=== PATIENT | male | born 1970 | race Caucasian/White ===

== ENCOUNTER 2017-12-19 07:31 | Emergency (ER) | payer OTHER ==
[~2017-12-19] VITALS: Ht 180.3 cm; Wt 76.7 kg
[~2017-12-19 07:31] MED LIST: BACTRIM 400-801 EACH; DESCOVY PO; DIFLUCAN200 MG PO; ETHAMBUTOL HCL400 MG PO; FLAGYL500 MG PO; HYDROCORTISONE10 MG PO; PREDNISONE20 MG PO; PREZCOBIX PO; PROTONIX40 MG PO; TIVICAY PO; ZITHROMAX600 MG PO
[2017-12-19 09:26] VITALS: BP 136/68
== END 2017-12-19 09:30 | disposition home or self-care (01) ==
LOC: FSED 07:31
DX: R60.9 Edema, unspecified (principal); E88.09 Other disorders of plasma-protein metabolism, not elsewhere classified; K21.9 Gastro-esophageal reflux disease without esophagitis; B20 Human immunodeficiency virus [HIV] disease
CPT/HCPCS: 36415; 80053; 81003; 82948; 85025; 99283

== ENCOUNTER 2018-06-21 15:54 | Inpatient (IN) | payer OTHER ==
[~2018-06-21] VITALS: Ht 180.3 cm; Wt 70.3 kg
--- OUTSIDE RECORDS SUMMARY | 2018-06-21 15:58 | XMS REPORT | Clinical Summary ---
Author Author [facility] Organization [facility] Address Unknown Phone Unavailable Care Team Providers Care Revising Clerk Name Role Phone Jenna Crain MD PCP Allergies Comments Active Allergy Reactions Severity Noted Date Developed CYTOPENIAS on this medication which improved with holding BACTRIM Sulfamethoxazole-Trimetho 07/27/2016 prim Medications End Date Status Medication Sig Dispensed Refills Start Date Active traMADol (ULTRAM) 50 mg Take 1 tablet 30 tablet 0 tabletIndications: AIDS by mouth 6 (acquired every 6 hours immunodeficiency as needed for syndrome), CD4 <=200 Pain (mild pain). Active HYDROcodone-acetaminophen Take 1 tablet 30 tablet 0 (NORCO) 7.5-325 mg tablet by mouth 6 every 6 hours as needed for pain. Active omeprazole (PRILOSEC) 20 Take 1 90 capsule 2 mg delayed release capsule by 6 capsuleIndications: mouth daily. Lymphoblastic lymphoma, unspecified body region Active azithromycin (ZITHROMAX) Take 1 tablet 30 tablet 3 500 mg tabletIndications: by mouth 7 Human immunodeficiency daily. 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 Active dolutegravir (TIVICAY) 50 Take 1 tablet 30 tablet 3 mg tabletIndications: by mouth 7 AIDS (acquired daily. immunodeficiency syndrome), CD4 <=200 Active darunavir-cobicistat Take 1 tablet 30 tablet 3 (PREZCOBIX) 800-150 mg-mg by mouth 7 Tab tabletIndications: daily. AIDS (acquired immunodeficiency syndrome), CD4 <=200 Active emtricitabine-tenofovir Take 1 tablet 30 tablet 3 alafen (DESCOVY) 200-25 by mouth 7 mg tabletIndications: daily. AIDS (acquired immunodeficiency syndrome), CD4 <=200 Active hydrOXYzine (ATARAX) 25 Take 1 tablet 30 tablet 11 mg tabletIndications: by mouth 7 Insomnia, unspecified nightly at bedtime as needed for Insomnia. Active nystatin (MYCOSTATIN) Apply to 15 g 0 topical creamIndications: affected area 7 Lymphoblastic lymphoma, 2 times unspecified body region daily. 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 Johns is a 45 yo man with HIV/AIDS who was newly diagnosed with plamablastic lymphoma, his oncologic history is as follows: 12/30/2015: Seen in ID clinic, was complaining of a new pain in the anal/perirectal area for the past 2 weeks. On exam area looked atypical and concerning, referred to dermatology and colorectal surgery for evaluation. 01/06/2016: presented to the ED with worsening anal/perirectal pain, concern for abcess, admitted to general surgery for further management. 01/06/2016: CT A/P noting an enhancing, heterogenous perianal lesion measuring 7.0 x 6.4 cm x 8.6cm, with central areas of hypodensity, which may represent necrosis or abscess formation, also noting mesenteric lymphadenopathy. 01/07/2016: Taken to the OR for rigid proctoscopy, incision and drainage of carl-rectal abscess. 01/08/2016: EUA, washout of wound with packing and excisional biopsy of the perirectal lesion done. Pathology initially read as peripheral T-cell lymphoma NOS, but then after review thought to be more consistent with plasmablastic lymphoma. The superficial atypical cells are positive for MUM1, CD30 (variable), GURWINDER (variable), CD43, CD45 and STEPHANI, while the deeper atypical cells with cohesive growth pattern are positive for CD138 (weak and variable), MUM1 (variable), CD43, and CD45, but are negative for CD30, GURWINDER and STEPHANI. Both components are negative for CD20, CD3, PAX-5, CD79, CD56, HHV-8, CD10, CD31, CD34, TdT, myeloperoxidase, Bcl-2, Bcl-6, ALK-1, and pankeratin. FISH showed gain of BCL6/3q27, MYC/8q24 and BCL2/18q2, but no evidence of a rearrangement of BCL2, BCL6 or MYC. 01/10/2016: EUA, placement of telfa dressings to bilateral open buttock wounds. 01/14/2016: TTE with LVEF 65-69% 01/17/2016: Bone marrow biopsy revealed normocellular marrow with trilineage hematopoesis, negative for lymphoma by IHC and flow. Normal cytogenetics 46XY. 01/21/2016: PET/CT scan noting a markedly FDG avid, large perianal soft tissue mass measuring approximately 7 x 10.4 x 7.9 cm with max SUV of 30.9, also a perineal soft tissue nodularity extending to the base of the scrotum with ill-defined margins with max SUV of 25.3. Other subcutaneous FDG avid nodules are present including a perineal nodule measuring 1.3 cm with max SUV of 21.7, and a right inguinal nodule measuring 1.2 cm with max SUV of 20.3. Numerous mesenteric nodes, but only two with FDG avidity, a periduodenal node 1.2 cm with max SUV of 6.8, and a mesenteric node 1.5 cm with max SUV of 7.1. 01/21/2016: C1 of CHOP (pathology at that time was still read as peripheral T cell lymphoma NOS) 02/09/2016: First [facility] oncology visit, consented for DA-EPOCH, sent to ER for intractable diarrhea w/u. 02/09/2016-02/23/16: Admitted at [facility] for work up of intractable diarrhea, no infection found per patient 03/01/2016: port placed 03/02/2016-03/08/2016: Admitted for C1 of DA-EPOCH, LP done and IT MTX given, CSF cytology negative 03/20/2016-03/25/2016: Admitted with fever, anemia and weakness, treated for sepsis and adrenal insufficiency, was supposed to received C2 of DA-EPOCH inhouse since it was delayed but left AMA. 04/03/2016-04/09/2016: Admitted for C2 DA-EPOCH, LP done and IT MTX given, CSF cytology negative 04/10/2016-04/13/2016: Admitted for diarrhea and hypokalemia, infectious work up unrevealing. 04/15/2016-04/21/2016: Admitted for febrile neutropenia and diarrhea, treated with broad spectrum antibiotics, cultures remained negative, stool studies including c-diff negative, colonoscopy with biopsy showed active colitis but no evidence of CMV inclusions. Fever and neutropenia resolved and patient discharged home. 05/02/2016-05/07/2016: admitted for C3 of DA-EPOCH, LP done and IT MTX given, CSF cytology negative. 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 AIDS (acquired immunodeficiency syndrome), CD4 <=200 02/27/2014 Human immunodeficiency virus (HIV) disease 02/05/2013 Dyslipidemia 02/05/2013 H/O pneumocystis pneumonia 02/05/2013 Adrenal insufficiency Encounter for antineoplastic chemotherapy Encounters Care Team Description Date Type Specialty Abdiaziz Olson, Fellow(MD) Lymphoblastic lymphoma, unspecified body region 05/15/2018 Hospital Lab Encounter Abdiaziz Olson, Fellow(MD) Lymphoblastic lymphoma, unspecified body region (Primary Dx) 05/15/2018 Office Visit Oncology Abdiaziz Olson, Fellow(MD) Lymphoblastic lymphoma, unspecified body region (Primary Dx) 05/15/2018 Orders Only Oncology Jonel Amezcua 05/14/2018 Clinical Case Mgt Seven, Lymesia D Other; Pre-clinic Chart Review 05/13/2018 Telephone Abdiaziz Olson Fellow() Lymphoblastic lymphoma, unspecified body region (Primary Dx) 05/13/2018 Orders Only Oncology Abdiaziz Olson Fellow() Lymphoblastic lymphoma, unspecified body region (Primary Dx) 05/13/2018 Orders Only Oncology Abdiaziz Olson Fellow() Lymphoblastic lymphoma, unspecified body region 05/08/2018 Hospital Radiology Encounter 05/07/2018 Travel [place] Appointment Related Questions 04/29/2018 Telephone Oncology Abdiaziz Olson Fellow() Lymphoblastic lymphoma, unspecified body region (Primary Dx) 12/26/2017 Office Visit Oncology Jenna Crain MD Lymphoblastic lymphoma, unspecified body region 12/21/2017 Hospital Radiology Encounter Lilly Hernandez Follow-up (Minor Procedure ) 11/09/2017 Telephone Colon and Rectal Surgery Lilly Hernandez Follow-up (Minor Procedure ) 11/09/2017 Telephone Colon and Rectal Surgery Dequan Elizalde MD Port catheter in place (Primary Dx) 11/07/2017 Office Visit General Surgery Flaquito Chapman Fellow() Lymphoblastic lymphoma, unspecified body region (Primary Dx) 11/07/2017 Orders Only Hematology Marleny Greco MD Maymani, Hossein, Fellow() Lymphoblastic lymphoma, unspecified body region (Primary Dx) 08/22/2017 Office Visit Oncology Lymphoblastic lymphoma, unspecified body region 08/13/2017 Ancillary Radiology Procedure Lymphoblastic lymphoma, unspecified body region 08/13/2017 Ancillary Radiology Procedure Flaquito Chapman Fellow() 08/10/2017 Hospital Lab Encounter Flaquito Chapman Fellow() Lymphoblastic lymphoma, unspecified body region (Primary Dx) 08/10/2017 Orders Only Oncology after 06/20/2017 Immunizations Name Dates Previously Given Next Due Influenza Vac (Fluarix) 10/02/2015 Influenza Vaccine 06/29/2016, 03/17/2014, 06/12/2013 PPD 10/16/2012 Pneumococcal 13-valent 01/11/2015 conj 0.5 mL injection Family History Medical History Relation Name Comments Hypertension Father Heart Paternal Grandfather Relation Name Status Comments Brother Alive Brother Alive Brother Alive Brother Alive Daughter Alive Father Alive Mother Alive Paternal Grandfather Sister Alive Sister Alive Social History Date Tobacco Use Types Packs/Day Years Used Former Smoker Cigarettes 19 Smokeless Tobacco: Former Quit: 12/17/2013 User Tobacco Cessation: Counseling Given: No Alcohol Use Drinks/Week oz/Week Comments No 5-6 Cans of 3.0 - 3.6 USED TO DRINK 5-6 BEERS WHENERVER HE DRANK, HAS beer CUT DOWN SINCE BEING DIAGNOSED WITH HIV. 0 Standard drinks or equivalent Sex Assigned at Date Recorded Not on file Industry Job Start Date Occupation Not on file Not on file Not on file Travel End Travel History Travel Start No recent travel history available. Last Filed Vital Signs Time Taken Vital Sign Reading 05/15/2018 11:44 AM BENDER MACHINE OPERATOR Blood Pressure 107/70 05/15/2018 11:44 AM BENDER MACHINE OPERATOR Pulse 117 05/15/2018 11:44 AM BENDER MACHINE OPERATOR Temperature 36.8 C (98.2 F) 05/15/2018 11:44 AM BENDER MACHINE OPERATOR Respiratory Rate 18 05/15/2018 11:44 AM BENDER MACHINE OPERATOR Oxygen Saturation 99% - Inhaled Oxygen - Concentration 05/15/2018 11:44 AM BENDER MACHINE OPERATOR Weight 78.2 kg (172 lb 8 oz) 05/15/2018 11:44 AM BENDER MACHINE OPERATOR Height 180.3 cm (5' 11") 05/15/2018 11:44 AM BENDER MACHINE OPERATOR Body Mass Index 24.06 Plan of Treatment Care Team Description Date Type Specialty 06/26/2018 Appointment Radiology 07/03/2018 Appointment Lab Abdiaziz Olson, Fellow() [address] [place] [id number] patient has CD in order picker/assembler folder 07/03/2018 Office Visit Oncology Procedures Comments Procedure Name Priority Date/Time Associated Diagnosis COMPREHENSIVE METABOLIC Routine 05/15/2018 Lymphoblastic lymphoma, 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) 1:15 PM BENDER MACHINE OPERATOR unspecified body region CBC/DIFF Routine 05/15/2018 Lymphoblastic lymphoma, 1:15 PM BENDER MACHINE OPERATOR unspecified body region CT ABDOMEN AND PELVIS W Routine 05/08/2018 Lymphoblastic lymphoma, CONTRAST - ROUTINE 2:40 PM BENDER MACHINE OPERATOR unspecified body region CT CHEST W CONTRAST Routine 05/08/2018 Lymphoblastic lymphoma, 2:40 PM BENDER MACHINE OPERATOR unspecified body region CT SOFT TISSUE NECK W Routine 05/08/2018 Lymphoblastic lymphoma, CONTRAST 2:40 PM BENDER MACHINE OPERATOR unspecified body region COMPREHENSIVE METABOLIC Routine 05/07/2018 Lymphoblastic lymphoma, 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) 2:38 PM BENDER MACHINE OPERATOR unspecified body region CBC/DIFF Routine 05/07/2018 Lymphoblastic lymphoma, 2:38 PM BENDER MACHINE OPERATOR unspecified body region CT CHEST W CONTRAST Routine 12/21/2017 Lymphoblastic lymphoma, 5:44 PM CDT unspecified body region CT ABDOMEN AND PELVIS Routine 12/21/2017 Lymphoblastic lymphoma, CONTRAST 5:44 PM CDT unspecified body region CT SOFT TISSUE NECK W Routine 12/21/2017 Lymphoblastic lymphoma, CONTRAST 5:44 PM CDT unspecified body region COMPREHENSIVE METABOLIC Routine 12/19/2017 Lymphoblastic lymphoma, 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) 10:08 AM CDT unspecified body region CBC/DIFF Routine 12/19/2017 Lymphoblastic lymphoma, 10:08 AM CDT unspecified body region CT SOFT TISSUE NECK W Routine 08/13/2017 Lymphoblastic lymphoma, CONTRAST 12:51 PM CDT unspecified body region CT ABDOMEN AND PELVIS Routine 08/13/2017 Lymphoblastic lymphoma, CONTRAST 12:23 PM CDT unspecified body region CT CHEST W CONTRAST Routine 08/13/2017 Lymphoblastic lymphoma, 12:23 PM CDT unspecified body region CD4/CD8 RATIO GRP Routine 08/10/2017 Lymphoblastic lymphoma, 11:15 AM BENDER MACHINE OPERATOR unspecified body region HIV RNA VIRAL LOAD Routine 08/10/2017 Lymphoblastic lymphoma, 11:15 AM BENDER MACHINE OPERATOR unspecified body region COMPREHENSIVE METABOLIC Routine 08/10/2017 Lymphoblastic lymphoma, 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) 11:15 AM BENDER MACHINE OPERATOR unspecified body region CBC/DIFF Routine 08/10/2017 Lymphoblastic lymphoma, 11:15 AM BENDER MACHINE OPERATOR unspecified body region after 06/20/2017 Results * COMPREHENSIVE METABOLIC 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) (05/15/2018 1:15 PM BENDER MACHINE OPERATOR) Only the most recent of 4 results within the time period is included. Pathologist [facility] Albumin 2.1 (L) 4.2 - 5.5 g/dL [facility] Calcium 7.3 (L) 8.6 - 10.3 mg/dL [facility] CO2 21 21 - 31 mmol/L [facility] Chloride 107 98 - 107 mmol/L [facility] Creatinine 1.30 0.7 - 1.3 mg/dL [facility] Glucose 92 70 - 110 mg/dL [facility] Alk Phos 651 (H) 34 - 104 U/L [facility] Potassium 5.0 3.5 - 5.1 mmol/L [facility] Sodium 136 136 - 145 mmol/L [facility] ALT 30 7 - 52 U/L [facility] AST 21 13 - 39 U/L [facility] Urea Nitrogen 15 7 - 25 mg/dL [facility] T Bilirubin 0.4 0.2 - 1.0 mg/dL [facility] T Protein 4.5 (L) 6.4 - 8.2 g/dL [facility] GFR, Estimated 59 mL/min/1.73 m2 [facility] GFR, Estim, >60 mL/min/1.73 m2 [facility] 1 Anion Gap 8 [facility] Specimen Blood Performing Organization Address City/State/Zipcode Phone Number MISYS [facility] * CBC/DIFF (05/15/2018 1:15 PM BENDER MACHINE OPERATOR) Only the most recent of 4 results within the time period is included. WBC 8.3 4.5 - 12.0 K/uL [facility] RBC 3.43 (L) 4.60 - 6.20 M/uL [facility] Hemoglobin 9.5 (L) 14.0 - 18.0 g/dL [facility] Hematocrit 31.6 (L) 40.0 - 54.0 % [facility] MCV 92 82 - 92 fL [facility] MCH 27.7 27.0 - 31.0 pg [facility] MCHC 30.1 (L) 32.0 - 36.0 g/dL [facility] RDW 62.4 (H) 35.1 - 43.9 fL [facility] Platelet 333 150 - 400 K/uL [facility] Mean Platelet 9.8 9.4 - 12.4 fL [facility] Volume [facility] Percent NRBC 0.0 [facility] Absolute NRBC 0.00 [facility] Neutrophil 58.5 34.0 - 67.9 % [facility] Lymphocyte 25.2 21.8 - 50.0 % [facility] Monocyte 8.3 5.3 - 12.0 % [facility] Eosinophil 2.2 0.8 - 5.0 % [facility] Basophil 1.6 (H) 0.2 - 1.2 % [facility] Pct Immat Gran 4.2 (H) 0.0 - 0.5 [facility] Neutrophil, Abs 4.87 1.78 - 5.36 K/uL [facility] Lymphocyte, Abs 2.09 1.32 - 3.57 K/uL [facility] Monocyte, Abs 0.69 0.30 - 0.82 K/uL [facility] Eosinophil, Abs 0.18 0.04 - 0.54 K/uL [facility] Basophil, Abs 0.13 (H) 0.01 - 0.08 K/uL [facility] Absol Immat 0.35 (H) 0.00 - 0.03 K/uL [facility] Gran [facility] 2 Specimen Blood Performing Organization Address City/State/Zipcode Phone Number [facility] * CT ABDOMEN AND PELVIS W CONTRAST - ROUTINE (05/08/2018 2:40 PM BENDER MACHINE OPERATOR) Impressions Performed At IMPRESSION: SMS 1.Significant interval increase in size of the portacaval, para-aortic, interaortocaval, and large masslike area within the mesentery surrounding the proximal mesenteric arteries resulting in interval mild narrowing. Several lymph nodes have developed central process. 2.There is interval increase in subcentimeter right para esophageal and left anterior diaphragmatic lymph node. 3.Diffuse duodenal, jejunal and proximal ileal wall thickening with normal enhancement, with no dilatation or pneumatosis with no evidence for ischemic change suggesting a nonspecific enteritis. 4.Interval development of mild to moderate abdominal and pelvic ascites. 5.Mild hepatomegaly with diffuse moderate hepatic steatosis that is new since the prior study. There is associated increased portal vein diameter that may suggest development of underlying hepatocellular disease. 6.Mild to moderate abdominal and pelvic ascites that is new since the prior study. 7.Moderate diffuse gallbladder wall thickening that is not significantly changed and may be secondary to chronic liver disease and/or ascites versus chronic cholecystitis. 8.Small fluid filled umbilical hernia. Signed By: Mickey Marina MD, 05/08/2018 3:06 PM Narrative Performed At EXAM: CT CHEST WITH CONTRAST SMS EXAM: CT ABDOMEN AND PELVIS WITH CONTRAST DATE: 05/08/2018 2:40 PM INDICATION: Surveillance. Lymphoblastic lymphoma, unspecified body region ADDITIONAL INFORMATION: None. COMPARISON: CT chest abdomen pelvis 12/21/2017 TECHNIQUE: Chest ,abdomen and pelvis volumetric CT data set was acquired and axial, coronal, and sagittal series were reconstructed. Postcontrast phases: Portal Venous IV contrast: Omnipaque 300, 85 mL Enteric contrast: None. DLP:[id number] FINDINGS: Lines, tubes and hardware: None. Lower neck:The visible portions or the lower neck and thyroid are unremarkable. Axilla: Clear. Airway: Patent. Lungs and pleura:There is a small right pleural effusion with associated atelectasis. There is a left apical subpleural calcified granuloma. There is a left lower lobe medial calcified granuloma in the left lower lobe posterior calcified granuloma. There are a few partial accessory fissures. Mediastinum, tamar and intrathoracic lymph nodes: There is a fatty replaced para esophageal 1.3 cm lymph node that previously measured 1.1 cm. There is a left anterior diaphragmatic 0.7 cm lymph node that previously measured 0.5 cm. Heart, pericardium and great vessels: Unremarkable. Liver: There is moderate diffuse low-attenuation. There is mild enlargement measuring 17.9 cm in length. There is mild perihepatic ascites. The liver is heterogeneously enhancing with no focal lesion seen. Biliary tree: No intra- or extrahepatic biliary ductal dilation. Gallbladder: Contracted with a mildly thickened wall that is stable. Pancreas: Normal. Spleen: 12.2 cm and is at the upper limits of normal. Adrenals: Normal. Kidneys and ureters: Normal. Bladder: Normal. Reproductive Tract: The prostate is unremarkable. Gastrointestinal tract: Stomach: Normal. Small bowel: There is interval development of thickening of the duodenum and small bowel diffusely level of the proximal ileum with normal enhancement, no dilatation or pneumatosis. Colon: Normal. Appendix: Not definitely seen. Peritoneum, mesentery and retroperitoneum: There is mild to moderate abdominal and pelvic ascites. Lymph nodes: There are periportal lymph nodes measuring up to 1.4 cm that previously measured 0.6 cm. There is a 0.9 cm portacaval lymph node that previously measured 0.5 cm. There are numerous para-aortic lymph nodes. There is an interaortocaval 2.5 cm lymph node that previously measured 1.7 cm. There is a conglomerate retrocaval cluster of lymph nodes measuring 2 cm that previously measured 1.3 cm. Several lymph nodes have developed central microcysts since the prior study. There is a 1.8 cm preaortic node that previously measured 1.3 cm and hasn't process on the current study. There is a confluence of michael mass surrounding the proximal branching of the SMA that covers an area of approximately 6.9 x 7.6 cm that previously measured approximately 4.8 x 4.7 cm and is more tightly packed with lymph nodes with areas of lymph node necrosis compared to the prior study. Arteries: There is narrowing of the enteric arteries surrounded by the conglomerate mass of adenopathy that is new since the prior study. The aorta and its branches and iliac vessels are patent and normal in caliber. Veins: The opacified portions of the IVC, mesenteric, and femoral veins are patent. Portal Vein:The portal vein measures 1.6 cm and previous a measured 1.3 cm.. Bones: No acute abnormality. Soft tissues:There is a small fluid containing umbilical hernia of uncertain clinical significance.There are small bilateral fat-containing inguinal hernias. Procedure Note Interface, Rad/Mammog In - 05/08/2018 3:11 PM BENDER MACHINE OPERATOR EXAM: CT CHEST WITH CONTRAST EXAM: CT ABDOMEN AND PELVIS WITH CONTRAST DATE: 05/08/2018 2:40 PM INDICATION: Surveillance. Lymphoblastic lymphoma, unspecified body region ADDITIONAL INFORMATION: None. COMPARISON: CT chest abdomen pelvis 12/21/2017 TECHNIQUE: Chest ,abdomen and pelvis volumetric CT data set was acquired and axial, coronal, and sagittal series were reconstructed. Postcontrast phases: Portal Venous IV contrast: Omnipaque 300, 85 mL Enteric contrast: None. DLP: [id number] FINDINGS: Lines, tubes and hardware: None. Lower neck: The visible portions or the lower neck and thyroid are unremarkable. Axilla: Clear. Airway: Patent. Lungs and pleura: There is a small right pleural effusion with associated atelectasis. There is a left apical subpleural calcified granuloma. There is a left lower lobe medial calcified granuloma in the left lower lobe posterior calcified granuloma. There are a few partial accessory fissures. Mediastinum, tamar and intrathoracic lymph nodes: There is a fatty replaced para esophageal 1.3 cm lymph node that previously measured 1.1 cm. There is a left anterior diaphragmatic 0.7 cm lymph node that previously measured 0.5 cm. Heart, pericardium and great vessels: Unremarkable. Liver: There is moderate diffuse low-attenuation. There is mild enlargement measuring 17.9 cm in length. There is mild perihepatic ascites. The liver is heterogeneously enhancing with no focal lesion seen. Biliary tree: No intra- or extrahepatic biliary ductal dilation. Gallbladder: Contracted with a mildly thickened wall that is stable. Pancreas: Normal. Spleen: 12.2 cm and is at the upper limits of normal. Adrenals: Normal. Kidneys and ureters: Normal. Bladder: Normal. Reproductive Tract: The prostate is unremarkable. Gastrointestinal tract: Stomach: Normal. Small bowel: There is interval development of thickening of the duodenum and small bowel diffusely level of the proximal ileum with normal enhancement, no dilatation or pneumatosis. Colon: Normal. Appendix: Not definitely seen. Peritoneum, mesentery and retroperitoneum: There is mild to moderate abdominal and pelvic ascites. Lymph nodes: There are periportal lymph nodes measuring up to 1.4 cm that previously measured 0.6 cm. There is a 0.9 cm portacaval lymph node that previously measured 0.5 cm. There are numerous para-aortic lymph nodes. There is an interaortocaval 2.5 cm lymph node that previously measured 1.7 cm. There is a conglomerate retrocaval cluster of lymph nodes measuring 2 cm that previously measured 1.3 cm. Several lymph nodes have developed central microcysts since the prior study. There is a 1.8 cm preaortic node that previously measured 1.3 cm and hasn't process on the current study. There is a confluence of michael mass surrounding the proximal branching of the SMA that covers an area of approximately 6.9 x 7.6 cm that previously measured approximately 4.8 x 4.7 cm and is more tightly packed with lymph nodes with areas of lymph node necrosis compared to the prior study. Arteries: There is narrowing of the enteric arteries surrounded by the conglomerate mass of adenopathy that is new since the prior study. The aorta and its branches and iliac vessels are patent and normal in caliber. Veins: The opacified portions of the IVC, mesenteric, and femoral veins are patent. Portal Vein: The portal vein measures 1.6 cm and previous a measured 1.3 cm.. Bones: No acute abnormality. Soft tissues: There is a small fluid containing umbilical hernia of uncertain clinical significance. There are small bilateral fat-containing inguinal hernias. IMPRESSION IMPRESSION: 1. Significant interval increase in size of the portacaval, para-aortic, interaortocaval, and large masslike area within the mesentery surrounding the proximal mesenteric arteries resulting in interval mild narrowing. Several lymph nodes have developed central process. 2. There is interval increase in subcentimeter right para esophageal and left anterior diaphragmatic lymph node. 3. Diffuse duodenal, jejunal and proximal ileal wall thickening with normal enhancement, with no dilatation or pneumatosis with no evidence for ischemic change suggesting a nonspecific enteritis. 4. Interval development of mild to moderate abdominal and pelvic ascites. 5. Mild hepatomegaly with diffuse moderate hepatic steatosis that is new since the prior study. There is associated increased portal vein diameter that may suggest development of underlying hepatocellular disease. 6. Mild to moderate abdominal and pelvic ascites that is new since the prior study. 7. Moderate diffuse gallbladder wall thickening that is not significantly changed and may be secondary to chronic liver disease and/or ascites versus chronic cholecystitis. 8. Small fluid filled umbilical hernia. Signed By: Mickey Marina MD, 05/08/2018 3:06 PM Performing Organization Address City/State/Zipcode Phone Number SMS * CT CHEST W CONTRAST (05/08/2018 2:40 PM BENDER MACHINE OPERATOR) Only the most recent of 3 results within the time period is included. Impressions Performed At IMPRESSION: SMS 1.Significant interval increase in size of the portacaval, para-aortic, interaortocaval, and large masslike area within the mesentery surrounding the proximal mesenteric arteries resulting in interval mild narrowing. Several lymph nodes have developed central process. 2.There is interval increase in subcentimeter right para esophageal and left anterior diaphragmatic lymph node. 3.Diffuse duodenal, jejunal and proximal ileal wall thickening with normal enhancement, with no dilatation or pneumatosis with no evidence for ischemic change suggesting a nonspecific enteritis. 4.Interval development of mild to moderate abdominal and pelvic ascites. 5.Mild hepatomegaly with diffuse moderate hepatic steatosis that is new since the prior study. There is associated increased portal vein diameter that may suggest development of underlying hepatocellular disease. 6.Mild to moderate abdominal and pelvic ascites that is new since the prior study. 7.Moderate diffuse gallbladder wall thickening that is not significantly changed and may be secondary to chronic liver disease and/or ascites versus chronic cholecystitis. 8.Small fluid filled umbilical hernia. Signed By: Mickey Marina MD, 05/08/2018 3:06 PM Narrative Performed At EXAM: CT CHEST WITH CONTRAST SMS EXAM: CT ABDOMEN AND PELVIS WITH CONTRAST DATE: 05/08/2018 2:40 PM INDICATION: Surveillance. Lymphoblastic lymphoma, unspecified body region ADDITIONAL INFORMATION: None. COMPARISON: CT chest abdomen pelvis 12/21/2017 TECHNIQUE: Chest ,abdomen and pelvis volumetric CT data set was acquired and axial, coronal, and sagittal series were reconstructed. Postcontrast phases: Portal Venous IV contrast: Omnipaque 300, 85 mL Enteric contrast: None. DLP:796 FINDINGS: Lines, tubes and hardware: None. Lower neck:The visible portions or the lower neck and thyroid are unremarkable. Axilla: Clear. Airway: Patent. Lungs and pleura:There is a small right pleural effusion with associated atelectasis. There is a left apical subpleural calcified granuloma. There is a left lower lobe medial calcified granuloma in the left lower lobe posterior calcified granuloma. There are a few partial accessory fissures. Mediastinum, tamar and intrathoracic lymph nodes: There is a fatty replaced para esophageal 1.3 cm lymph node that previously measured 1.1 cm. There is a left anterior diaphragmatic 0.7 cm lymph node that previously measured 0.5 cm. Heart, pericardium and great vessels: Unremarkable. Liver: There is moderate diffuse low-attenuation. There is mild enlargement measuring 17.9 cm in length. There is mild perihepatic ascites. The liver is heterogeneously enhancing with no focal lesion seen. Biliary tree: No intra- or extrahepatic biliary ductal dilation. Gallbladder: Contracted with a mildly thickened wall that is stable. Pancreas: Normal. Spleen: 12.2 cm and is at the upper limits of normal. Adrenals: Normal. Kidneys and ureters: Normal. Bladder: Normal. Reproductive Tract: The prostate is unremarkable. Gastrointestinal tract: Stomach: Normal. Small bowel: There is interval development of thickening of the duodenum and small bowel diffusely level of the proximal ileum with normal enhancement, no dilatation or pneumatosis. Colon: Normal. Appendix: Not definitely seen. Peritoneum, mesentery and retroperitoneum: There is mild to moderate abdominal and pelvic ascites. Lymph nodes: There are periportal lymph nodes measuring up to 1.4 cm that previously measured 0.6 cm. There is a 0.9 cm portacaval lymph node that previously measured 0.5 cm. There are numerous para-aortic lymph nodes. There is an interaortocaval 2.5 cm lymph node that previously measured 1.7 cm. There is a conglomerate retrocaval cluster of lymph nodes measuring 2 cm that previously measured 1.3 cm. Several lymph nodes have developed central microcysts since the prior study. There is a 1.8 cm preaortic node that previously measured 1.3 cm and hasn't process on the current study. There is a confluence of michael mass surrounding the proximal branching of the SMA that covers an area of approximately 6.9 x 7.6 cm that previously measured approximately 4.8 x 4.7 cm and is more tightly packed with lymph nodes with areas of lymph node necrosis compared to the prior study. Arteries: There is narrowing of the enteric arteries surrounded by the conglomerate mass of adenopathy that is new since the prior study. The aorta and its branches and iliac vessels are patent and normal in caliber. Veins: The opacified portions of the IVC, mesenteric, and femoral veins are patent. Portal Vein:The portal vein measures 1.6 cm and previous a measured 1.3 cm.. Bones: No acute abnormality. Soft tissues:There is a small fluid containing umbilical hernia of uncertain clinical significance.There are small bilateral fat-containing inguinal hernias. Procedure Note Interface, Rad/Mammog In - 05/08/2018 3:11 PM BENDER MACHINE OPERATOR EXAM: CT CHEST WITH CONTRAST EXAM: CT ABDOMEN AND PELVIS WITH CONTRAST DATE: 05/08/2018 2:40 PM INDICATION: Surveillance. Lymphoblastic lymphoma, unspecified body region ADDITIONAL INFORMATION: None. COMPARISON: CT chest abdomen pelvis 12/21/2017 TECHNIQUE: Chest ,abdomen and pelvis volumetric CT data set was acquired and axial, coronal, and sagittal series were reconstructed. Postcontrast phases: Portal Venous IV contrast: Omnipaque 300, 85 mL Enteric contrast: None. DLP: 796 FINDINGS: Lines, tubes and hardware: None. Lower neck: The visible portions or the lower neck and thyroid are unremarkable. Axilla: Clear. Airway: Patent. Lungs and pleura: There is a small right pleural effusion with associated atelectasis. There is a left apical subpleural calcified granuloma. There is a left lower lobe medial calcified granuloma in the left lower lobe posterior calcified granuloma. There are a few partial accessory fissures. Mediastinum, tamar and intrathoracic lymph nodes: There is a fatty replaced para esophageal 1.3 cm lymph node that previously measured 1.1 cm. There is a left anterior diaphragmatic 0.7 cm lymph node that previously measured 0.5 cm. Heart, pericardium and great vessels: Unremarkable. Liver: There is moderate diffuse low-attenuation. There is mild enlargement measuring 17.9 cm in length. There is mild perihepatic ascites. The liver is heterogeneously enhancing with no focal lesion seen. Biliary tree: No intra- or extrahepatic biliary ductal dilation. Gallbladder: Contracted with a mildly thickened wall that is stable. Pancreas: Normal. Spleen: 12.2 cm and is at the upper limits of normal. Adrenals: Normal. Kidneys and ureters: Normal. Bladder: Normal. Reproductive Tract: The prostate is unremarkable. Gastrointestinal tract: Stomach: Normal. Small bowel: There is interval development of thickening of the duodenum and small bowel diffusely level of the proximal ileum with normal enhancement, no dilatation or pneumatosis. Colon: Normal. Appendix: Not definitely seen. Peritoneum, mesentery and retroperitoneum: There is mild to moderate abdominal and pelvic ascites. Lymph nodes: There are periportal lymph nodes measuring up to 1.4 cm that previously measured 0.6 cm. There is a 0.9 cm portacaval lymph node that previously measured 0.5 cm. There are numerous para-aortic lymph nodes. There is an interaortocaval 2.5 cm lymph node that previously measured 1.7 cm. There is a conglomerate retrocaval cluster of lymph nodes measuring 2 cm that previously measured 1.3 cm. Several lymph nodes have developed central microcysts since the prior study. There is a 1.8 cm preaortic node that previously measured 1.3 cm and hasn't process on the current study. There is a confluence of michael mass surrounding the proximal branching of the SMA that covers an area of approximately 6.9 x 7.6 cm that previously measured approximately 4.8 x 4.7 cm and is more tightly packed with lymph nodes with areas of lymph node necrosis compared to the prior study. Arteries: There is narrowing of the enteric arteries surrounded by the conglomerate mass of adenopathy that is new since the prior study. The aorta and its branches and iliac vessels are patent and normal in caliber. Veins: The opacified portions of the IVC, mesenteric, and femoral veins are patent. Portal Vein: The portal vein measures 1.6 cm and previous a measured 1.3 cm.. Bones: No acute abnormality. Soft tissues: There is a small fluid containing umbilical hernia of uncertain clinical significance. There are small bilateral fat-containing inguinal hernias. IMPRESSION IMPRESSION: 1. Significant interval increase in size of the portacaval, para-aortic, interaortocaval, and large masslike area within the mesentery surrounding the proximal mesenteric arteries resulting in interval mild narrowing. Several lymph nodes have developed central process. 2. There is interval increase in subcentimeter right para esophageal and left anterior diaphragmatic lymph node. 3. Diffuse duodenal, jejunal and proximal ileal wall thickening with normal enhancement, with no dilatation or pneumatosis with no evidence for ischemic change suggesting a nonspecific enteritis. 4. Interval development of mild to moderate abdominal and pelvic ascites. 5. Mild hepatomegaly with diffuse moderate hepatic steatosis that is new since the prior study. There is associated increased portal vein diameter that may suggest development of underlying hepatocellular disease. 6. Mild to moderate abdominal and pelvic ascites that is new since the prior study. 7. Moderate diffuse gallbladder wall thickening that is not significantly changed and may be secondary to chronic liver disease and/or ascites versus chronic cholecystitis. 8. Small fluid filled umbilical hernia. Signed By: Mickey Marina MD, 05/08/2018 3:06 PM Performing Organization Address City/State/Zipcode Phone Number SMS * CT SOFT TISSUE NECK W CONTRAST (05/08/2018 2:40 PM BENDER MACHINE OPERATOR) Only the most recent of 3 results within the time period is included. Impressions Performed At IMPRESSION: SMS No cervical lymphadenopathy. Examination remains stable. This [facility] radiology report is a preliminary resident dictation until finalized by an attending.Changes to this preliminary report may occur in an additional preliminary or finalized version. Dictated By: Jt Francois MD, 05/09/2018 8:28 AM I have reviewed the study and agree with the findings in this report. Signed By: Felciiano Carter MD, 05/09/2018 8:30 AM Narrative Performed At EXAM: CT NECK WITH CONTRAST [facility] DATE: 05/08/2018 2:39 PM INDICATION: Surveillance. Lymphoblastic lymphoma, unspecified body region COMPARISON: CT neck from 12/21/2017 and 08/13/2017 TECHNIQUE: Volumetric CT of the neck is obtained after intravenous contrast. Axial, coronal and sagittal images are provided. IV contrast: 65 mL of Omnipaque 300 DLP: 276 mGy-cm FINDINGS: The nasopharynx, oropharynx and oral cavity are normal. The larynx, hypopharynx and thyroid gland are normal. The salivary glands including the parotid and submandibular glands are normal. Minimal mucosal thickening within the right maxillary sinus antrum. Paranasal sinuses and mastoid air cells are otherwise clear. Imaged portions of the brain and orbits are unremarkable. No pathologically enlarged lymph nodes are identified. A few scattered bilateral subcentimeter level 2 lymph nodes up to 0.5 cm are smaller than on comparison studies and are nonspecific. Osseous structures are normal. Unchanged incidental right posterior cervical soft tissue lipoma. Right pulmonary apical blebs are again seen. Mild biapical pulmonary scarring is present. Procedure Note Interface, Rad/Mammog In - 05/09/2018 8:35 AM BENDER MACHINE OPERATOR EXAM: CT NECK WITH CONTRAST DATE: 05/08/2018 2:39 PM INDICATION: Surveillance. Lymphoblastic lymphoma, unspecified body region COMPARISON: CT neck from 12/21/2017 and 08/13/2017 TECHNIQUE: Volumetric CT of the neck is obtained after intravenous contrast. Axial, coronal and sagittal images are provided. IV contrast: 65 mL of Omnipaque 300 DLP: 276 mGy-cm FINDINGS: The nasopharynx, oropharynx and oral cavity are normal. The larynx, hypopharynx and thyroid gland are normal. The salivary glands including the parotid and submandibular glands are normal. Minimal mucosal thickening within the right maxillary sinus antrum. Paranasal sinuses and mastoid air cells are otherwise clear. Imaged portions of the brain and orbits are unremarkable. No pathologically enlarged lymph nodes are identified. A few scattered bilateral subcentimeter level 2 lymph nodes up to 0.5 cm are smaller than on comparison studies and are nonspecific. Osseous structures are normal. Unchanged incidental right posterior cervical soft tissue lipoma. Right pulmonary apical blebs are again seen. Mild biapical pulmonary scarring is present. IMPRESSION IMPRESSION: No cervical lymphadenopathy. Examination remains stable. This [facility] radiology report is a preliminary resident dictation until finalized by an attending. Changes to this preliminary report may occur in an additional preliminary or finalized version. Dictated By: Jt Francois MD, 05/09/2018 8:28 AM I have reviewed the study and agree with the findings in this report. Signed By: Feliciano Carter MD, 05/09/2018 8:30 AM Performing Organization Address City/State/Zipcode Phone Number SMS * CT ABDOMEN AND PELVIS CONTRAST (12/21/2017 5:44 PM CDT) Only the most recent of 2 results within the time period is included. Impressions Performed At IMPRESSION: SMS 1.Slightly improved exam with decrease in size in a few mesenteric lymph nodes and stable retroperitoneal lymphadenopathy. 2.Stable tiny pulmonary nodules measuring up to 3 mm. 3.Prominence of the common bile duct measuring up to 8 mm has decreased in size from 08/13/2017. 4.Diverticulosis without diverticulitis. This [facility] radiology report is a preliminary resident dictation until finalized by an attending.Changes to this preliminary report may occur in an additional preliminary or finalized version. Dictated By: Brendan Perez MD, 12/24/2017 11:39 AM I have reviewed the study and agree with the findings in this report. Signed By: Mae Babb MD, 12/24/2017 1:33 PM Narrative Performed At EXAM: CT CHEST WITH CONTRAST SMS EXAM: CT ABDOMEN AND PELVIS WITH CONTRAST DATE: 12/21/2017 5:46 PM INDICATION: restaging for non-hodgkin lymphoma. Lymphoblastic lymphoma COMPARISON: CT chest abdomen pelvis 08/03/2017, 05/07/2017 TECHNIQUE: Volumetric CT of the chest, abdomen and pelvis is acquired following intravenous administration of contrast. Axial, coronal and sagittal images are provided. IV contrast: 100 cc Omnipaque Enteric contrast: None. DLP: 1402 mGy-cm FINDINGS: Lines, tubes and hardware: None. Lower neck:The visible portions or the lower neck and thyroid are unremarkable. Axilla: Clear. Airway: Patent. Lungs and pleura: *There is a small 2 mm subpleural nodule in the right lower lobe basolateral segment (3/62). Stable. *A 3 mm nodule is present in the left upper lobe, anterior segment (3/20). This is stable. *Small partial groundglass 2 mm nodule in the left inferior lingula segment (3/77). Essentially stable. No pneumothorax, pleural effusion, or focal consolidation. Mediastinum, tamar and intrathoracic lymph nodes: Normal. Heart, pericardium and great vessels: Unremarkable. Liver: Normal. Biliary tree: The common bile duct is prominent but not overtly dilated. This measures 8 mm. No obvious lesion identified. There is no intrahepatic biliary ductal dilation. Gallbladder: Normal. Pancreas: Normal. Spleen: Normal. Adrenals: Normal. Kidneys and ureters: A few small subcentimeter hypodensities are present bilaterally, too small to adequately characterize, but likely represent simple cyst. No stones or hydronephrosis. Bladder: Normal. Reproductive organs: Prostate and seminal vesicles are unremarkable. Gastrointestinal tract: Stomach: Normal. Small bowel: Normal. Colon: Diverticulosis without diverticulitis. Appendix: Normal. Peritoneum, mesentery and retroperitoneum: No free air, ascites or loculated fluid. Abdominal and pelvic lymph nodes: Again seen is extensive retroperitoneal, SMA, and mesenteric lymphadenopathy. Multiple selective lymph nodes: *Aortocaval lymph node conglomerate measures 1.5 cm () and is essentially stable. *Periaortic lymph node measures 1.0 cm () and is stable. *Multiple mesenteric and SMA lymph nodes again seen at the root of the mesentery and appear to have decreased in size overall. For example a 1.2 cm node () previously measured 1.4 cm. Abdominal and pelvic vasculature: Aorta and branches: Normal. IVC and veins: Normal. Portal vasculature: Normal. Bones: No acute abnormality. Age-related degenerative changes of the spine are noted including grade 1 L5 on S1 retrolisthesis. Soft tissues: Small bilateral fat-containing inguinal hernias are again noted. Procedure Note Interface, Rad/Mammog In - 12/24/2017 1:38 PM CDT EXAM: CT CHEST WITH CONTRAST EXAM: CT ABDOMEN AND PELVIS WITH CONTRAST DATE: 12/21/2017 5:46 PM INDICATION: restaging for non-hodgkin lymphoma. Lymphoblastic lymphoma COMPARISON: CT chest abdomen pelvis 08/03/2017, 05/07/2017 TECHNIQUE: Volumetric CT of the chest, abdomen and pelvis is acquired following intravenous administration of contrast. Axial, coronal and sagittal images are provided. IV contrast: 100 cc Omnipaque Enteric contrast: None. DLP: 1402 mGy-cm FINDINGS: Lines, tubes and hardware: None. Lower neck: The visible portions or the lower neck and thyroid are unremarkable. Axilla: Clear. Airway: Patent. Lungs and pleura: * There is a small 2 mm subpleural nodule in the right lower lobe basolateral segment (3/62). Stable. * A 3 mm nodule is present in the left upper lobe, anterior segment (3/20). This is stable. * Small partial groundglass 2 mm nodule in the left inferior lingula segment (3/77). Essentially stable. No pneumothorax, pleural effusion, or focal consolidation. Mediastinum, tamar and intrathoracic lymph nodes: Normal. Heart, pericardium and great vessels: Unremarkable. Liver: Normal. Biliary tree: The common bile duct is prominent but not overtly dilated. This measures 8 mm. No obvious lesion identified. There is no intrahepatic biliary ductal dilation. Gallbladder: Normal. Pancreas: Normal. Spleen: Normal. Adrenals: Normal. Kidneys and ureters: A few small subcentimeter hypodensities are present bilaterally, too small to adequately characterize, but likely represent simple cyst. No stones or hydronephrosis. Bladder: Normal. Reproductive organs: Prostate and seminal vesicles are unremarkable. Gastrointestinal tract: Stomach: Normal. Small bowel: Normal. Colon: Diverticulosis without diverticulitis. Appendix: Normal. Peritoneum, mesentery and retroperitoneum: No free air, ascites or loculated fluid. Abdominal and pelvic lymph nodes: Again seen is extensive retroperitoneal, SMA, and mesenteric lymphadenopathy. Multiple selective lymph nodes: * Aortocaval lymph node conglomerate measures 1.5 cm (271) and is essentially stable. * Periaortic lymph node measures 1.0 cm (269) and is stable. * Multiple mesenteric and SMA lymph nodes again seen at the root of the mesentery and appear to have decreased in size overall. For example a 1.2 cm node (2/71) previously measured 1.4 cm. Abdominal and pelvic vasculature: Aorta and branches: Normal. IVC and veins: Normal. Portal vasculature: Normal. Bones: No acute abnormality. Age-related degenerative changes of the spine are noted including grade 1 L5 on S1 retrolisthesis. Soft tissues: Small bilateral fat-containing inguinal hernias are again noted. IMPRESSION IMPRESSION: 1. Slightly improved exam with decrease in size in a few mesenteric lymph nodes and stable retroperitoneal lymphadenopathy. 2. Stable tiny pulmonary nodules measuring up to 3 mm. 3. Prominence of the common bile duct measuring up to 8 mm has decreased in size from 08/13/2017. 4. Diverticulosis without diverticulitis. This [facility] radiology report is a preliminary resident dictation until finalized by an attending. Changes to this preliminary report may occur in an additional preliminary or finalized version. Dictated By: Brendan Perez MD, 12/24/2017 11:39 AM I have reviewed the study and agree with the findings in this report. Signed By: Mae Babb MD, 12/24/2017 1:33 PM Performing Organization Address City/[facility]/Zipcode Phone Number SMS * CD4/CD8 RATIO GRP (08/10/2017 11:15 AM BENDER MACHINE OPERATOR) Lymphocyte Abs 1,016.5 /uL [facility] Lymph % 9.5 % [facility] T4 % 7.0 (L) 25.0 - 56.0 % [facility] T4 Absolute 71 (L) 431 - 1,623 /uL [facility] T8 % 83.0 (H) 17.2 - 38.2 % [facility] T8 Absolute 844 170 - 1,078 /uL [facility] T4/T8 Ratio 0.08 (L) 0.86 - 2.05 RATIO [facility] WBC 10.7 K/uL [facility] Specimen Blood Performing Organization Address City/[facility] Phone Number MISYS [facility] * HIV RNA VIRAL LOAD (08/10/2017 11:15 AM BENDER MACHINE OPERATOR) HIV-1 RNA 41 copies/mL [facility] Copies PATHOLOGY HIV-1 RNA Log10 1.61 Log10 [facility] Comment: PATHOLOGY This test utilizes FDA cleared TEZ AmpliPrep/TEZ TaqMan HIV-1 test 2.0 from [facility] which allows detection of viral loads between 20 copies/mL and 10 million copies/mL of plasma. When the result isless than 20 copies/mL of HIV-1 RNA is obtained, the test will be reported as less than 20 copies/mL. TEZ AmpliPrep/TEZ TaqMan HIV-1 test, version 2.0 is NOT intended for use as a screening test for the presence of HIV-1 RNA in blood or a diagnostic test to confirm the presence of HIV infection. This test is intended for use as an aid in the management of patients with HIV-1 infection. Specimen Blood Performing Organization Address City/State/Zipcode Phone Number [facility] after 06/20/2017 Insurance Type Payer Benefit Subscriber ID Effective Phone Address Plan / Dates Group [facility] xxxxxxxxx 2016-P [phone] [address] [facility] resent [id number] [place] [address] Advance Directives For more information, please contact: [address] [address] Date Inactivated Comments Code Status Date Activated 05/07/2016 6:56 PM Full Code 05/03/2016 12:03 AM 05/03/2016 12:03 AM Full Code 05/02/2016 3:11 PM 04/21/2016 4:26 PM Full Code 04/16/2016 1:09 AM 04/13/2016 10:48 PM Full Code 04/11/2016 12:44 AM 04/09/2016 3:08 PM Full Code 04/03/2016 10:10 PM
--- OUTSIDE RECORDS SUMMARY | 2018-06-21 15:59 | XMS REPORT ---
[facility] Address Unknown Phone Unavailable Care Team Providers Care Zipper Repairer Name Role Phone SUHACK YUSUF FLORINAKAZKey VELA Unavailable Unavailable Problems This patient has no known problems. Allergies, Adverse Reactions, Alerts This patient has no known allergies or adverse reactions. Medications This patient has no known medications. Encounters Start Date/Time End Date/Time Encounter Type Admission Type Attending [facility] Care Department Encounter ID 2018-07-03 00:00:00 Inpatient [facility] [id number] 2018-06-07 00:00:00 Inpatient [facility] [id number] 2018-05-15 11:44:03 Inpatient [facility] [id number] 2018-05-01 00:00:00 Inpatient [facility] [id number] 2017-12-26 12:09:11 Inpatient [facility] [id number] 2017-12-19 00:00:00 Inpatient [facility] [id number] 2018-07-03 00:00:00 2018-07-03 00:00:00 Outpatient [facility] [id number] 2018-06-26 00:00:00 2018-06-26 00:00:00 Outpatient [facility] [id number] 2018-06-10 00:00:00 2018-06-10 00:00:00 Outpatient [facility] [id number] 2018-06-07 00:00:00 2018-06-07 00:00:00 Outpatient [facility] [id number] 2018-05-30 00:00:00 2018-05-30 00:00:00 Outpatient [facility] [id number] 2018-05-15 13:17:41 2018-05-15 13:17:41 Outpatient [facility] [id number] 2018-05-08 13:42:07 2018-05-08 13:42:07 Outpatient [facility] [id number] 2018-05-07 14:40:54 2018-05-07 14:40:54 Outpatient [facility] [id number] 2018-05-07 00:00:00 2018-05-07 00:00:00 Outpatient [facility] [id number] 2018-04-29 00:00:00 2018-04-29 00:00:00 Outpatient [facility] [id number] 2017-12-21 16:25:12 2017-12-21 16:25:12 Outpatient [facility] [id number] 2017-12-19 10:08:38 2017-12-19 10:08:38 Outpatient [facility] [id number] 2017-12-12 00:00:00 2017-12-12 00:00:00 Outpatient [facility] [id number] 2017-11-07 10:14:26 2017-11-07 10:14:26 Outpatient [facility] [id number] 2017-08-22 13:45:59 2017-08-22 13:45:59 Outpatient [facility] [id number] 2017-08-22 00:00:00 2017-08-22 00:00:00 Outpatient [facility] [id number] 2017-08-13 12:30:10 2017-08-13 12:30:10 Outpatient [facility] [id number] 2017-08-13 10:32:35 2017-08-13 10:32:35 Outpatient [facility] [id number] 2017-08-10 11:11:21 2017-08-10 11:11:21 Outpatient [facility] [id number] 2017-05-16 11:40:05 2017-05-16 11:40:05 Outpatient [facility] [id number] 2017-05-16 10:35:36 2017-05-16 10:35:36 Outpatient [facility] [id number] 2017-05-07 10:55:59 2017-05-07 10:55:59 Outpatient [facility] [id number] 2017-04-18 15:24:37 2017-04-18 15:24:37 Outpatient [facility] [id number] 2017-04-18 15:08:58 2017-04-18 15:08:58 Outpatient [facility] [id number] 2017-04-04 00:00:00 2017-04-04 00:00:00 Outpatient [facility] [id number] 2017-04-04 00:00:00 2017-04-04 00:00:00 Outpatient [facility] [id number] 2017-03-07 00:00:00 2017-03-07 00:00:00 Outpatient [facility] [id number] 2017-03-07 00:00:00 2017-03-07 00:00:00 Outpatient [facility] [id number] 2017-01-03 16:28:03 2017-01-03 16:28:03 Outpatient [facility] [id number] 2017-01-03 15:33:47 2017-01-03 15:33:47 Outpatient [facility] [id number] 2016-12-27 00:00:00 2016-12-27 00:00:00 Outpatient [facility] [id number] 2016-12-13 00:00:00 2016-12-13 00:00:00 Outpatient [facility] [id number] 2016-12-13 00:00:00 2016-12-13 00:00:00 Outpatient [facility] [id number] 2016-12-08 15:16:25 2016-12-08 15:16:25 Outpatient [facility] [id number] 2016-12-07 00:00:00 2016-12-07 00:00:00 Outpatient [facility] [id number] 2016-11-15 00:00:00 2016-11-15 00:00:00 Outpatient [facility] [id number] 2016-11-15 00:00:00 2016-11-15 00:00:00 Outpatient [facility] [id number] 2016-10-25 13:59:43 2016-10-25 13:59:43 Outpatient [facility] [id number] 2016-10-18 16:18:57 2016-10-18 16:18:57 Outpatient [facility] [id number] 2016-10-18 15:08:16 2016-10-18 15:08:16 Outpatient [facility] [id number] 2016-06-29 09:02:44 2016-06-29 09:02:44 Outpatient [facility] [id number] Results Test Description Test Time Test Comments Text Results Atomic Results Result Comments BLOOD CULTURE, AFB ISOLATOR 2017-11-12 10:23:00 CULTURE (FAN) (test vdqn=4465) MYCOBACTERIUM AVIUM Mycobacterium aviumIdentification performed by:[facility], Dept. of Microbiology Research, [facility], [address] [address], [place], [place] [address] Clarithromycin (test code=42) By partial 16S rRNA gene sequencing, this isolate matches the M. avium type stra in 100%.MISCELLANEOUS LAB [id number] 08:40:00* Test Item Value Reference Range Comments SCAN RESULT (test fqgv=3679103) MISCELLANEOUS LAB [id number] 10:06:00* Test Item Value Reference Range Comments SCAN RESULT (test hetf=2925098) BLOOD [id number] 00:00:00* Test Item Value Reference Range Comments CULTURE (BEAKER) (test gcly=5144) No growth in 5 days BLOOD [id number] 00:00:00* Test Item Value Reference Range Comments CULTURE (BEAKER) (test uizc=0823) No growth in 5 days CBC W/PLT COUNT & AUTO [id number] 10:10:00* Test Item Value Reference Range Comments WHITE BLOOD CELL COUNT (BEAKER) (test wsjc=346) 7.2 K/ L 3.5-10.5 RED BLOOD CELL COUNT (BEAKER) (test fpjr=073) 2.83 M/ L 4.63-6.08 HEMOGLOBIN (BEAKER) (test titw=555) 8.1 GM/DL 13.7-17.5 HEMATOCRIT (BEAKER) (test ygbz=593) 26.3 % 40.1-51.0 MEAN CORPUSCULAR VOLUME (BEAKER) (test lwdk=014) 92.9 fL 79.0-92.2 MEAN CORPUSCULAR HEMOGLOBIN (BEAKER) (test zihs=527) 28.6 pg 25.7-32.2 MEAN CORPUSCULAR HEMOGLOBIN CONC (BEAKER) (test bzqg=154) 30.8 GM/DL 32.3-36.5 RED CELL DISTRIBUTION WIDTH (BEAKER) (test niyc=565) 15.5 % 11.6-14.4 PLATELET COUNT (BEAKER) (test wimo=102) 193 K/CU MM 150-450 MEAN PLATELET VOLUME (BEAKER) (test bigh=518) 9.8 fL 9.4-12.4 NUCLEATED RED BLOOD CELLS (BEAKER) (test octm=996) 0 /100 WBC 0-0 BASIC METABOLIC [id number] 05:43:00* Test Item Value Reference Range Comments SODIUM (BEAKER) (test bsct=764) 141 meq/L 136-145 POTASSIUM (BEAKER) (test vqqv=097) 3.7 meq/L 3.5-5.1 Specimen slightly hemolyzed CHLORIDE (BEAKER) (test zfba=513) 109 meq/L 98-107 CO2 (BEAKER) (test pykr=391) 23 meq/L 22-29 BLOOD UREA NITROGEN (BEAKER) (test lhtf=424) 21 mg/dL 7-21 CREATININE (BEAKER) (test httf=508) 1.39 mg/dL 0.57-1.25 Specimen slightly hemolyzed GLUCOSE RANDOM (BEAKER) (test smcn=518) 296 mg/dL 70-105 CALCIUM (BEAKER) (test jdfp=711) 9.1 mg/dL 8.4-10.2 EGFR (BEAKER) (test hisy=1086) mL/min/1.73 sq m INSUFFICIENT CLINICAL DATA TO CALCULATE ESTIMATED GFR. CALCIUM, [id number] 05:38:00* Test Item Value Reference Range Comments CALCIUM IONIZED (BEAKER) (test xgra=226) 1.13 mmol/L 1.12-1.27 PH, BLOOD (BEAKER) (test nvcs=2443) 7.42 [id number] 05:37:00* Test Item Value Reference Range Comments MAGNESIUM (BEAKER) (test gtrh=028) 1.8 mg/dL 1.6-2.6 Specimen slightly hemolyzed CBC W/PLT COUNT & AUTO [id number] 12:17:00* Test Item Value Reference Range Comments WHITE BLOOD CELL COUNT (BEAKER) (test dlfh=264) 7.8 K/ L 3.5-10.5 RED BLOOD CELL COUNT (BEAKER) (test onri=185) 2.78 M/ L 4.63-6.08 HEMOGLOBIN (BEAKER) (test fivw=112) 8.0 GM/DL 13.7-17.5 HEMATOCRIT (BEAKER) (test ukhm=309) 25.6 % 40.1-51.0 MEAN CORPUSCULAR VOLUME (BEAKER) (test bdgf=152) 92.1 fL 79.0-92.2 MEAN CORPUSCULAR HEMOGLOBIN (BEAKER) (test foau=299) 28.8 pg 25.7-32.2 MEAN CORPUSCULAR HEMOGLOBIN CONC (BEAKER) (test qfot=703) 31.3 GM/DL 32.3-36.5 RED CELL DISTRIBUTION WIDTH (BEAKER) (test jzvb=930) 15.6 % 11.6-14.4 PLATELET COUNT (BEAKER) (test cyum=248) 191 K/CU MM 150-450 MEAN PLATELET VOLUME (BEAKER) (test jmqh=766) 10.8 fL 9.4-12.4 NUCLEATED RED BLOOD CELLS (BEAKER) (test vozk=498) 0 /100 WBC 0-0 BASIC METABOLIC [id number] 07:31:00* Test Item Value Reference Range Comments SODIUM (BEAKER) (test jrzr=079) 144 meq/L 136-145 POTASSIUM (BEAKER) (test cnpd=317) 3.9 meq/L 3.5-5.1 CHLORIDE (BEAKER) (test hbic=951) 113 meq/L 98-107 CO2 (BEAKER) (test atzs=725) 22 meq/L 22-29 BLOOD UREA NITROGEN (BEAKER) (test fgcb=983) 23 mg/dL 7-21 CREATININE (BEAKER) (test uzrp=916) 1.47 mg/dL 0.57-1.25 GLUCOSE RANDOM (BEAKER) (test rgpi=249) 177 mg/dL 70-105 CALCIUM (BEAKER) (test sdpd=879) 9.1 mg/dL 8.4-10.2 EGFR (BEAKER) (test vcur=9322) mL/min/1.73 sq m INSUFFICIENT CLINICAL DATA TO CALCULATE ESTIMATED GFR. [id number] 07:20:00* Test Item Value Reference Range Comments MAGNESIUM (BEAKER) (test fhnh=313) 1.8 mg/dL 1.6-2.6 CALCIUM, [id number] 07:06:00* Test Item Value Reference Range Comments CALCIUM IONIZED (BEAKER) (test zkch=103) 1.18 mmol/L 1.12-1.27 PH, BLOOD (BEAKER) (test zcyf=2881) 7.35 HIV-1 PCR, [id number] 15:54:00* Test Item Value Reference Range Comments HIV-1 NUMERIC RESULT (BEAKER) (test zueh=7822) 141 Cp/mL <20 This test uses a Real-Time Polymerase Chain Reaction (RT-PCR) methodology to det ect a highly conserved region of the HIV-1 gag gene and was performed using the TEZ AmpliPrep/TEZ TaqMan HIV-1 test kit version 2.0 ([employer]Reportable range for this assay is 20 - 10,000,000 copies per mL (1.3 - 7.0 Log copies/mL).CBC W/PLT COUNT & AUTO [id number] 12:11:00* Test Item Value Reference Range Comments WHITE BLOOD CELL COUNT (BEAKER) (test osho=056) 8.4 K/ L 3.5-10.5 RED BLOOD CELL COUNT (BEAKER) (test oids=806) 2.70 M/ L 4.63-6.08 HEMOGLOBIN (BEAKER) (test lafw=513) 7.8 GM/DL 13.7-17.5 HEMATOCRIT (BEAKER) (test mztj=641) 24.5 % 40.1-51.0 MEAN CORPUSCULAR VOLUME (BEAKER) (test zfqz=229) 90.7 fL 79.0-92.2 MEAN CORPUSCULAR HEMOGLOBIN (BEAKER) (test ghfw=636) 28.9 pg 25.7-32.2 MEAN CORPUSCULAR HEMOGLOBIN CONC (BEAKER) (test nthq=200) 31.8 GM/DL 32.3-36.5 RED CELL DISTRIBUTION WIDTH (BEAKER) (test glis=417) 15.3 % 11.6-14.4 PLATELET COUNT (BEAKER) (test waen=993) 178 K/CU MM 150-450 MEAN PLATELET VOLUME (BEAKER) (test yeam=529) 10.6 fL 9.4-12.4 NUCLEATED RED BLOOD CELLS (BEAKER) (test kwmi=243) 0 /100 WBC 0-0 [id number] 07:15:00* Test Item Value Reference Range Comments MAGNESIUM (BEAKER) (test mwow=937) 1.9 mg/dL 1.6-2.6 BASIC METABOLIC [id number] 07:15:00* Test Item Value Reference Range Comments SODIUM (BEAKER) (test khxr=307) 141 meq/L 136-145 POTASSIUM (BEAKER) (test vlil=798) 3.1 meq/L 3.5-5.1 CHLORIDE (BEAKER) (test mshm=734) 111 meq/L 98-107 CO2 (BEAKER) (test sayq=650) 22 meq/L 22-29 BLOOD UREA NITROGEN (BEAKER) (test etbj=968) 23 mg/dL 7-21 CREATININE (BEAKER) (test jnvb=590) 1.67 mg/dL 0.57-1.25 GLUCOSE RANDOM (BEAKER) (test xkke=434) 335 mg/dL 70-105 CALCIUM (BEAKER) (test qsxy=815) 9.0 mg/dL 8.4-10.2 EGFR (BEAKER) (test leei=9903) mL/min/1.73 sq m INSUFFICIENT CLINICAL DATA TO CALCULATE ESTIMATED GFR. CALCIUM, [id number] 06:50:00* Test Item Value Reference Range Comments CALCIUM IONIZED (BEAKER) (test oxjd=541) 1.17 mmol/L 1.12-1.27 PH, BLOOD (BEAKER) (test uzva=2247) 7.39 CBC W/PLT COUNT & AUTO [id number] 15:08:00* Test Item Value Reference Range Comments WHITE BLOOD CELL COUNT (BEAKER) (test ddfw=508) 8.2 K/ L 3.5-10.5 RED BLOOD CELL COUNT (BEAKER) (test zojd=404) 2.98 M/ L 4.63-6.08 HEMOGLOBIN (BEAKER) (test tpnc=163) 8.4 GM/DL 13.7-17.5 HEMATOCRIT (BEAKER) (test fykk=348) 26.9 % 40.1-51.0 MEAN CORPUSCULAR VOLUME (BEAKER) (test veve=607) 90.3 fL 79.0-92.2 MEAN CORPUSCULAR HEMOGLOBIN (BEAKER) (test vmcu=618) 28.2 pg 25.7-32.2 MEAN CORPUSCULAR HEMOGLOBIN CONC (BEAKER) (test iydc=481) 31.2 GM/DL 32.3-36.5 RED CELL DISTRIBUTION WIDTH (BEAKER) (test pppv=219) 15.0 % 11.6-14.4 PLATELET COUNT (BEAKER) (test cdhl=649) 153 K/CU MM 150-450 MEAN PLATELET VOLUME (BEAKER) (test ylzh=693) 9.6 fL 9.4-12.4 NUCLEATED RED BLOOD CELLS (BEAKER) (test bruw=025) 0 /100 WBC 0-0 CD4 T CELL [id number] 14:32:00* Test Item Value Reference Range Comments CD4/CD8 RATIO FC (BEAKER) (test slse=0056) 0.14 0.70-3.23 [id number] 08:23:00* Test Item Value Reference Range Comments PROLACTIN (BEAKER) (test vyun=119) 11.05 ng/mL 3.46-19.40 URINE [id number] 08:07:00* Test Item Value Reference Range Comments CULTURE (BEAKER) (test iwts=4555) <10,000 col/mL skin phyllis BASIC METABOLIC [id number] 07:41:00* Test Item Value Reference Range Comments SODIUM (BEAKER) (test fncq=892) 142 meq/L 136-145 POTASSIUM (BEAKER) (test jcue=712) 3.3 meq/L 3.5-5.1 CHLORIDE (BEAKER) (test wqoe=099) 114 meq/L 98-107 CO2 (BEAKER) (test qbkq=882) 19 meq/L 22-29 BLOOD UREA NITROGEN (BEAKER) (test pigg=941) 25 mg/dL 7-21 CREATININE (BEAKER) (test qxip=546) 1.71 mg/dL 0.57-1.25 GLUCOSE RANDOM (BEAKER) (test spdn=268) 181 mg/dL 70-105 CALCIUM (BEAKER) (test hvqq=390) 9.3 mg/dL 8.4-10.2 EGFR (BEAKER) (test byfj=9247) mL/min/1.73 sq m INSUFFICIENT CLINICAL DATA TO CALCULATE ESTIMATED GFR. [id number] 07:36:00* Test Item Value Reference Range Comments MAGNESIUM (BEAKER) (test flmt=611) 2.1 mg/dL 1.6-2.6 TSH/FREE T4 IF [id number] 07:30:00* Test Item Value Reference Range Comments THYROID STIMULATING HORMONE (BEAKER) (test rxjf=908) 0.31 uIU/mL 0.35-4.94 T4, [id number] 07:28:00* Test Item Value Reference Range Comments FREE T4 (BEAKER) (test bhrd=067) 0.89 ng/dL 0.70-1.48 VITAMIN D, [id number] 07:28:00* Test Item Value Reference Range Comments VITAMIN D 25-OH (BEAKER) (test pxln=9410) 20.0 ng/mL 6.6-49.9 Effective 03/14/2017: Reference Range ChangeNew: 6.6-49.9 ng/mL Previous: 13.0 -47.8 ng/mLRecommended Vitamin D Target Range: 30.0-40.0 ng/mLCALCIUM, IONIZED 2017-09-27 07:09:00* Test Item Value Reference Range Comments CALCIUM IONIZED (BEAKER) (test ihlw=284) 1.16 mmol/L 1.12-1.27 PH, BLOOD (BEAKER) (test zqjn=7059) 7.34 CBC W/PLT COUNT & AUTO [id number] 11:37:00* Test Item Value Reference Range Comments WHITE BLOOD CELL COUNT (BEAKER) (test zrqt=308) 7.6 K/ L 3.5-10.5 RED BLOOD CELL COUNT (BEAKER) (test tfjz=226) 2.91 M/ L 4.63-6.08 HEMOGLOBIN (BEAKER) (test orae=666) 8.3 GM/DL 13.7-17.5 HEMATOCRIT (BEAKER) (test royz=170) 26.2 % 40.1-51.0 MEAN CORPUSCULAR VOLUME (BEAKER) (test fsdt=295) 90.0 fL 79.0-92.2 MEAN CORPUSCULAR HEMOGLOBIN (BEAKER) (test ucuv=444) 28.5 pg 25.7-32.2 MEAN CORPUSCULAR HEMOGLOBIN CONC (BEAKER) (test ffzy=474) 31.7 GM/DL 32.3-36.5 RED CELL DISTRIBUTION WIDTH (BEAKER) (test lybn=471) 15.1 % 11.6-14.4 PLATELET COUNT (BEAKER) (test gkss=406) 157 K/CU MM 150-450 MEAN PLATELET VOLUME (BEAKER) (test bejn=669) 9.1 fL 9.4-12.4 NUCLEATED RED BLOOD CELLS (BEAKER) (test olcf=319) 0 /100 WBC 0-0 HEMOGLOBIN [id number] 09:21:00* Test Item Value Reference Range Comments HEMOGLOBIN A1C (BEAKER) (test rzet=199) 6.7 % 4.3-6.1 CALCIUM, [id number] 06:51:00* Test Item Value Reference Range Comments CALCIUM IONIZED (BEAKER) (test xtwg=673) 1.21 mmol/L 1.12-1.27 PH, BLOOD (BEAKER) (test gfie=5958) 7.38 EOSINOPHIL SMEAR, [id number] 06:49:00* Test Item Value Reference Range Comments EOSINOPHIL SMEAR, URINE (BEAKER) (test dzxy=0591) No EOS seen No EOS seen BASIC METABOLIC [id number] 06:23:00* Test Item Value Reference Range Comments SODIUM (BEAKER) (test cygk=960) 134 meq/L 136-145 POTASSIUM (BEAKER) (test vqac=926) 2.9 meq/L 3.5-5.1 CHLORIDE (BEAKER) (test tteg=000) 109 meq/L 98-107 CO2 (BEAKER) (test mslk=631) 16 meq/L 22-29 BLOOD UREA NITROGEN (BEAKER) (test qewl=267) 27 mg/dL 7-21 CREATININE (BEAKER) (test phct=840) 2.63 mg/dL 0.57-1.25 GLUCOSE RANDOM (BEAKER) (test kizb=320) 115 mg/dL 70-105 CALCIUM (BEAKER) (test ezws=062) 9.4 mg/dL 8.4-10.2 EGFR (BEAKER) (test reem=8794) mL/min/1.73 sq m INSUFFICIENT CLINICAL DATA TO CALCULATE ESTIMATED GFR. LIPID [id number] 06:17:00* Test Item Value Reference Range Comments TRIGLYCERIDES (BEAKER) (test kokm=509) 152 mg/dL CHOLESTEROL (BEAKER) (test mzru=732) 145 mg/dL HDL CHOLESTEROL (BEAKER) (test rgwt=822) 15 mg/dL LDL CHOLESTEROL CALCULATED (BEAKER) (test iblh=006) 100 mg/dL Triglyceride Reference Range: Low Risk <150 Borderline 150-199 High Risk 200-499 Very High Risk >=500Cholesterol Reference Range: Low Risk <200 Borderline 200-239 High Risk >240HDL Cholesterol Reference Range: Low Risk >=60 High Risk <40LDL Cholesterol Reference Range: Optimal <100 Near Optimal 100-129 Borderline 130-159 High 160-189 Very High >=190 [id number] 06:11:00* Test Item Value Reference Range Comments MAGNESIUM (BEAKER) (test snqu=133) 1.5 mg/dL 1.6-2.6 U/S, RENAL, [id number] 04:50:00Reason for exam:->akiFINAL REPORT Ultrasound of the Kidneys Clinical History: REHANA Discussion: Sonographic evaluation of the kidneys was performed. There is no prior study for direct comparison. Right kidney: 12.7 x 6.5 x 6.3 cm, with cortical thickness of 1.4 cm. Normal cortical echogenicity. No mass. No shadowing calculus. No hydronephrosis. Left kidney: 13.2 x 6.5 x 5.8 cm, with cortical thickness of 1.5 cm. Normal cortical echogenicity. No mass. No shadowing calculus. No hydronephrosis. Limited doppler evaluation of bilateral main renal arteries and veins demonstrate patency. Bladder: Mildly distended with a volume of 43 cc. Otherwise unremarkable. Impression: Normal renal ultrasound. Signed: Sadie Beth MDReport Verified Date/Time: 09/26/2017 04:50:01 Reading Location: [address] Reading Room TININE, RANDOM [id number] 23:26:00* Test Item Value Reference Range Comments CREATININE URINE (BEAKER) (test ttos=677) 62.4 mg/dL Reference Range: No NormalsPROTEIN, RANDOM [id number] 23:26:00* Test Item Value Reference Range Comments PROTEIN, URINE (BEAKER) (test glni=0817) 93 mg/dL 0-14 SODIUM, RANDOM [id number] 23:26:00* Test Item Value Reference Range Comments SODIUM URINE (BEAKER) (test joaz=779) 58 meq/L Reference Range: No NormalsCBC W/PLT COUNT & AUTO [id number] 22:50:00* Test Item Value Reference Range Comments WHITE BLOOD CELL COUNT (BEAKER) (test qymx=254) 9.1 K/ L 3.5-10.5 RED BLOOD CELL COUNT (BEAKER) (test pxol=897) 3.16 M/ L 4.63-6.08 HEMOGLOBIN (BEAKER) (test vpgx=987) 9.2 GM/DL 13.7-17.5 HEMATOCRIT (BEAKER) (test kaml=734) 28.6 % 40.1-51.0 MEAN CORPUSCULAR VOLUME (BEAKER) (test wbps=304) 90.5 fL 79.0-92.2 MEAN CORPUSCULAR HEMOGLOBIN (BEAKER) (test vbui=838) 29.1 pg 25.7-32.2 MEAN CORPUSCULAR HEMOGLOBIN CONC (BEAKER) (test xbdq=738) 32.2 GM/DL 32.3-36.5 RED CELL DISTRIBUTION WIDTH (BEAKER) (test rjpy=827) 15.0 % 11.6-14.4 PLATELET COUNT (BEAKER) (test ejwb=271) 191 K/CU MM 150-450 MEAN PLATELET VOLUME (BEAKER) (test weby=195) 9.7 fL 9.4-12.4 NUCLEATED RED BLOOD CELLS (BEAKER) (test oavt=492) 0 /100 WBC 0-0 URINALYSIS W/ [id number] 22:34:00* Test Item Value Reference Range Comments COLOR (BEAKER) (test snyd=825) Yellow CLARITY (BEAKER) (test sknk=567) Clear SPECIFIC GRAVITY UA (BEAKER) (test rjks=295) 1.010 1.001-1.035 PH UA (BEAKER) (test ugea=108) 6.5 5.0-8.0 PROTEIN UA (BEAKER) (test lmyw=202) 100 mg/dL Negative GLUCOSE UA (BEAKER) (test mwxa=078) 50 mg/dL Negative KETONES UA (BEAKER) (test xqtv=651) Negative Negative BILIRUBIN UA (BEAKER) (test kadz=995) Negative Negative BLOOD UA (BEAKER) (test qkhs=277) Negative Negative NITRITE UA (BEAKER) (test qxly=505) Negative Negative LEUKOCYTE ESTERASE UA (BEAKER) (test idwn=148) Negative Negative UROBILINOGEN UA (BEAKER) (test geyk=270) 0.2 mg/dL 0.2-1.0 RBC UA (BEAKER) (test quie=731) 1 /HPF WBC UA (BEAKER) (test qely=588) 2 /HPF BACTERIA (BEAKER) (test oelh=794) Rare MUCUS (BEAKER) (test grie=6490) Rare SOURCE(BEAKER) (test vgqd=6171) Urine, Voided PTH, [id number] 21:17:00* Test Item Value Reference Range Comments PARATHYROID HORMONE INTACT (BEAKER) (test koyk=582) < pg/mL 8.5-72.5 COMPREHENSIVE METABOLIC [id number] 19:02:00* Test Item Value Reference Range Comments TOTAL PROTEIN (BEAKER) (test iymn=269) 6.5 gm/dL 6.0-8.3 ALBUMIN (BEAKER) (test iwte=3690) 3.4 g/dL 3.5-5.0 ALKALINE PHOSPHATASE (BEAKER) (test ynxz=382) 271 U/L 40-150 BILIRUBIN TOTAL (BEAKER) (test allk=274) 0.4 mg/dL 0.2-1.2 SODIUM (BEAKER) (test dvob=578) 135 meq/L 136-145 POTASSIUM (BEAKER) (test dpht=181) 3.4 meq/L 3.5-5.1 CHLORIDE (BEAKER) (test vowa=940) 109 meq/L 98-107 CO2 (BEAKER) (test jjgl=983) 17 meq/L 22-29 BLOOD UREA NITROGEN (BEAKER) (test looj=578) 33 mg/dL 7-21 CREATININE (BEAKER) (test rqus=863) 3.18 mg/dL 0.57-1.25 GLUCOSE RANDOM (BEAKER) (test pjtr=758) 192 mg/dL 70-105 CALCIUM (BEAKER) (test tqad=021) 10.5 mg/dL 8.4-10.2 AST (SGOT) (BEAKER) (test avaz=680) 12 U/L 5-34 ALT (SGPT) (BEAKER) (test zbhk=532) 20 U/L 6-55 EGFR (BEAKER) (test xpvd=3062) mL/min/1.73 sq m INSUFFICIENT CLINICAL DATA TO CALCULATE ESTIMATED GFR. B-TYPE NATRIURETIC FACTOR (BNP)2017-09-25 19:00:00* Test Item Value Reference Range Comments B-TYPE NATRIURETIC PEPTIDE (BEAKER) (test etdz=388) 59 pg/mL 0-100 PROTHROMBIN [id number] 18:56:00* Test Item Value Reference Range Comments PROTIME (BEAKER) (test bybd=963) 15.5 seconds 11.7-14.7 INR (BEAKER) (test ouii=843) 1.2 <=5.9 RECOMMENDED COUMADIN/WARFARIN INR THERAPY RANGESSTANDARD DOSE: 2.0 - 3.0 Inclu lester: PROPHYLAXIS for venous thrombosis, systemic embolization; TREATMENT for lissy ous thrombosis and/or pulmonary embolus.HIGH RISK: Target INR is 2.5-3.5 for pat ients with mechanical heart valves.[id number] 18:54:00* Test Item Value Reference Range Comments PHOSPHORUS (BEAKER) (test vcux=170) 4.4 mg/dL 2.3-4.7 [id number] 18:54:00* Test Item Value Reference Range Comments MAGNESIUM (BEAKER) (test tsuw=655) 1.9 mg/dL 1.6-2.6
--- OUTSIDE RECORDS SUMMARY | 2018-06-21 15:59 | XMS REPORT | Clinical Summary ---
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 Active moxifloxacin (AVELOX) 400 Take 400 mg 0 mg tabletIndications: MAC by mouth daily. Active ethambutol (MYAMBUTOL) Take 400 mg 0 400 MG tabletIndications: by mouth Mycobacterium Avium daily 3 tabs Complex Infection po . Active Dolutegravir (TIVICAY) 50 Take 50 mg by 0 mg TabIndications: HIV mouth daily infection with dinner. Active emtricitabine-tenofovir Take 200 mg 0 alafen (DESCOVY) 200-25 by mouth mg TabIndications: HIV daily. infection 09/30/2018 Active calcium carbonate-vitamin Take 1 tablet 30 tablet 0 D3 (OSCAL-D) 500 by mouth 8 mg(1,250mg) -200 unit per daily. tablet 09/30/2018 Active nystatin (MYCOSTATIN) Apply 15 g 0 100,000 unit/gram powder topically 2 8 (two) times daily. 10/01/2018 Active lamiVUDine (EPIVIR) 150 Take 1 tablet 30 tablet 0 201 MG tablet (150 mg 8 total) by mouth daily. 09/30/2017 Discontinued pantoprazole (PROTONIX) Take 40 mg by 0 40 MG tabletIndications: mouth daily. Heartburn 09/30/2017 Discontinued HYDROcodone-acetaminophen Take 1 tablet 0 (NORCO 10-325) 10-325 mg by mouth 2 per tabletIndications: (two) times Pain daily as needed for Pain. 09/30/2017 Discontinued darunavir (PREZISTA) 400 Take 400 mg 0 MG tablet by mouth daily. 09/30/2017 Discontinued Missing or Non-Formulary 10 mg daily. 0 Medication 10/31/2017 cobicistat (TYBOST) 150 Take 1 tablet 30 tablet 0 mg Tab tablet (150 mg 8 total) by mouth daily for 30 days. 10/31/2017 darunavir 800 mg Tab Take 1 tablet 30 tablet 0 (800 mg 8 total) by mouth daily with breakfast for 30 days. 10/30/2017 sodium bicarbonate 650 MG Take 2 180 tablet 0 tablet tablets 8 (1,300 mg total) by mouth 3 (three) times daily for 30 days. 10/30/2017 pantoprazole (PROTONIX) Take 1 tablet 30 tablet 3 40 MG tabletIndications: (40 mg total) 8 Heartburn by mouth daily for 30 days. 10/05/2017 HYDROcodone-acetaminophen Take 2 25 tablet 0 (NORCO 5-325) 5-325 mg tablets by 8 per tablet mouth every 6 (six) hours as needed for up to 5 days. Max Daily Amount: 8 tablets 10/31/2017 predniSONE (DELTASONE) 10 Take 4 120 tablet 0 MG tablet tablets (40 8 mg total) by mouth daily for 30 days. 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 Never 05/01/2018 How many drinks containing alcohol do you have on Not asked a typical day when you are drinking? How often do you have six or more drinks on one Not asked occasion? Sex Assigned at Date Recorded Not on file Industry Job Start Date Occupation Not on file Not on file Not on file Travel End Travel History Travel Start No recent travel history available. 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 TECHNICIAN Body Mass Index 23.01 Plan of Treatment Not on file Procedures Comments Procedure Name Priority Date/Time Associated Diagnosis (CELLAVISION MANUAL DIFF) Routine 09/30/2017 3:34 AM CDT CBC W/PLT COUNT & AUTO Routine 09/30/2017 DIFFERENTIAL 3:34 AM CDT CBC W/PLT COUNT & AUTO Routine 09/30/2017 DIFFERENTIAL 3:34 AM CDT CALCIUM, IONIZED Routine 09/30/2017 3:34 AM CDT MAGNESIUM Routine 09/30/2017 3:34 AM CDT BASIC METABOLIC PANEL (7) Routine 09/30/2017 3:34 AM CDT (CELLAVISION MANUAL DIFF) Routine 09/29/2017 4:43 AM CDT CBC W/PLT COUNT & AUTO Routine 09/29/2017 DIFFERENTIAL 4:43 AM CDT CBC W/PLT COUNT & AUTO Routine 09/29/2017 DIFFERENTIAL 4:43 AM CDT CALCIUM, IONIZED Routine 09/29/2017 4:43 AM CDT MAGNESIUM Routine 09/29/2017 4:43 AM CDT BASIC METABOLIC PANEL (7) Routine 09/29/2017 4:43 AM CDT (CELLAVISION MANUAL DIFF) Routine 09/28/2017 5:46 AM CDT CBC W/PLT COUNT & AUTO Routine 09/28/2017 DIFFERENTIAL 5:46 AM CDT CBC W/PLT COUNT & AUTO Routine 09/28/2017 DIFFERENTIAL 5:46 AM CDT CALCIUM, IONIZED Routine 09/28/2017 5:46 AM CDT MAGNESIUM Routine 09/28/2017 5:46 AM CDT BASIC METABOLIC PANEL (7) Routine 09/28/2017 5:46 AM CDT PTH-RELATED PEPTIDE Routine 09/27/2017 12:58 PM CDT MISCELLANEOUS LAB ORDER Routine 09/27/2017 12:56 PM CDT MISCELLANEOUS LAB ORDER Routine 09/27/2017 12:56 PM CDT BLOOD CULTURE, AFB Routine 09/27/2017 ISOLATOR 12:56 PM CDT (CELLAVISION MANUAL DIFF) Routine 09/27/2017 6:17 AM CDT CBC W/PLT COUNT & AUTO Routine 09/27/2017 DIFFERENTIAL 6:17 AM CDT LUTEINIZING HORMONE (LH) Routine 09/27/2017 6:17 AM CDT FOLLICLE STIMULATING Routine 09/27/2017 HORMONE (FSH) 6:17 AM CDT CD4 T CELL SUBSET Routine 09/27/2017 6:17 AM CDT HIV-1 PCR, QUANTITATIVE Routine 09/27/2017 6:17 AM CDT HIV-1 GENOTYPE Routine 09/27/2017 6:17 AM CDT CBC W/PLT COUNT & AUTO Routine 09/27/2017 DIFFERENTIAL 6:17 AM CDT CALCIUM, IONIZED Routine 09/27/2017 6:17 AM CDT MAGNESIUM Routine 09/27/2017 6:17 AM CDT BASIC METABOLIC PANEL (7) Routine 09/27/2017 6:17 AM CDT INSULIN-LIKE GROWTH Routine 09/27/2017 FACTOR 6:17 AM CDT FSH/LH Routine 09/27/2017 6:17 AM CDT TESTOSTERONE, FREE + Routine 09/27/2017 TOTAL 6:17 AM CDT PROLACTIN Routine 09/27/2017 6:17 AM CDT T4, FREE Routine 09/27/2017 6:17 AM CDT TSH/FREE T4 IF INDICATED Routine 09/27/2017 6:17 AM CDT VITAMIN D, 25-HYDROXY Routine 09/27/2017 6:17 AM CDT (CELLAVISION MANUAL DIFF) Routine 09/26/2017 5:16 AM CDT CBC W/PLT COUNT & AUTO Routine 09/26/2017 DIFFERENTIAL 5:16 AM CDT CBC W/PLT COUNT & AUTO Routine 09/26/2017 DIFFERENTIAL 5:16 AM CDT CALCIUM, IONIZED Routine 09/26/2017 5:16 AM CDT MAGNESIUM Routine 09/26/2017 5:16 AM CDT BASIC METABOLIC PANEL (7) Routine 09/26/2017 5:16 AM CDT HEMOGLOBIN A1C Routine 09/26/2017 5:16 AM CDT LIPID PANEL Routine 09/26/2017 5:16 AM CDT US RENAL COMPLETE Routine 09/26/2017 1:43 AM CDT EOSINOPHIL SMEAR, URINE Routine 09/25/2017 9:59 PM CDT SODIUM, RANDOM URINE Routine 09/25/2017 9:59 PM CDT CREATININE, RANDOM URINE Routine 09/25/2017 9:59 PM CDT PROTEIN, RANDOM URINE Routine 09/25/2017 9:59 PM CDT URINALYSIS W/ MICROSCOPIC Routine 09/25/2017 9:58 PM CDT URINE CULTURE Routine 09/25/2017 9:58 PM CDT PTH, INTACT Routine 09/25/2017 8:41 PM CDT BLOOD CULTURE Routine 09/25/2017 6:21 PM CDT (CELLAVISION MANUAL DIFF) Routine 09/25/2017 6:01 PM CDT CBC W/PLT COUNT & AUTO Routine 09/25/2017 DIFFERENTIAL 6:01 PM CDT B-TYPE NATRIURETIC FACTOR Routine 09/25/2017 (BNP) 6:01 PM CDT PROTHROMBIN TIME/INR Routine 09/25/2017 6:01 PM CDT PHOSPHORUS Routine 09/25/2017 6:01 PM CDT MAGNESIUM Routine 09/25/2017 6:01 PM CDT CBC W/PLT COUNT & AUTO Routine 09/25/2017 DIFFERENTIAL 6:01 PM CDT COMPREHENSIVE METABOLIC Routine 09/25/2017 PANEL 6:01 PM CDT BLOOD CULTURE Routine 09/25/2017 5:58 PM CDT after 06/20/2017 Results * Manual Differential (09/30/2017 3:34 AM CDT) Only the most recent of 6 results within the time period is included. % Neutros 74 % [facility] % Lymphs 5 % [facility] % Monos 8 % [facility] % Metamyelo 3 (H) 0 - 0 % [facility] % Myelo 7 (H) 0 - 0 % [facility] % Bands 3 0 - 10 % [facility] # Neutros 5.33 1.78 - 5.38 K/ul [facility] # Lymphs 0.36 (L) 1.32 - 3.57 K/ul [facility] # Monos 0.58 0.30 - 0.82 K/uL [facility] # Metamyelo 0.22 (H) 0.00 - 0.00 K/uL [facility] # Myelo 0.50 (H) 0.00 - 0.00 K/uL [facility] # Bands 0.22 0.00 - 0.80 K/uL [facility] Total Counted 100 [facility] WBC Morphology Normal [facility] Platelet Morphology Normal [facility] Anisocytosis 1+ few [facility] Poikilocytes 2+ moderate [facility] Artifact Present [facility] Platelet Conc Adequate [facility] Specimen Blood Narrative Performed At Received comment: [facility] User comments: [facility] Slide comments: Performing Organization Address City/State/Zipcode Phone Number [facility] [address] [place] [phone] [facility] * Calcium, Ionized (09/30/2017 3:34 AM CDT) Only the most recent of 5 results within the time period is included. Calcium, Ion 1.13 1.12 - 1.27 mmol/L [facility] pH, Blood 7.42 [facility] Specimen Blood Performing Organization Address City/State/Zipcode Phone Number [facility] [address] [place] [phone] [facility] * CBC with platelet count + automated diff (09/30/2017 3:34 AM CDT) Only the most recent of 6 results within the time period is included. WBC 7.2 3.5 - 10.5 K/L [facility] RBC 2.83 (L) 4.63 - 6.08 M/L [facility] Hemoglobin 8.1 (L) 13.7 - 17.5 GM/DL [facility] Hematocrit 26.3 (L) 40.1 - 51.0 % [facility] MCV 92.9 (H) 79.0 - 92.2 fL [facility] MCH 28.6 25.7 - 32.2 pg [facility] MCHC 30.8 (L) 32.3 - 36.5 GM/DL [facility] RDW 15.5 (H) 11.6 - 14.4 % [facility] Platelets 193 150 - 450 K/CU MM [facility] MPV 9.8 9.4 - 12.4 fL [facility] nRBC 0 0 - 0 /100 WBC [facility] Specimen Blood Performing Organization Address City/[facility]/Zipcode Phone Number [facility] [address] [place] [phone] [facility] * Magnesium (09/30/2017 3:34 AM CDT) Only the most recent of 6 results within the time period is included. Magnesium 1.8Comment: Specimen slightly 1.6 - 2.6 mg/dL [facility] Specimen Blood Performing Organization Address City/[facility] Phone Number [facility] [address] [place] [address] [facility] * Basic metabolic panel (09/30/2017 3:34 AM CDT) Only the most recent of 5 results within the time period is included. Sodium 141 136 - 145 meq/L [facility] Potassium 3.7Comment: Specimen slightly 3.5 - 5.1 meq/L [facility] Chloride 109 (H) 98 - 107 meq/L [facility] CO2 23 22 - 29 meq/L [facility] BUN 21 7 - 21 mg/dL [facility] Creatinine 1.39 (H)Comment: Specimen 0.57 - 1.25 mg/dL [facility] Glucose 296 (H) 70 - 105 mg/dL [facility] Calcium 9.1 8.4 - 10.2 mg/dL [facility] EGFR Comment: INSUFFICIENT CLINICAL mL/min/1.73 sq m [facility] DATA TO CALCULATE ESTIMATED [facility] GFR. Specimen Blood Performing Organization Address City/[facility] Phone Number [address] [address] [facility] * PTH-related peptide (09/27/2017 12:58 PM CDT) PTH-Related Protein 10 (L) 14 - 27 pg/mL [facility] Comment: INCORPORATED This is a C-terminal PTH-RP assay. PTH-RP is useful in the differential diagnosis of hypercalcemia and levels may be elevated in patients with tumor-associated hypercalcemia. Elevated results may also be observed in patients with renal disease. This test was developed and its analytical performance characteristics have been determined by [facility]. It has not been cleared or approved by FDA. This assay has been validated pursuant to the CLIA regulations and is used for clinical purposes. Specimen Blood - Central Venous Line Narrative Performed At Performing Lab [facility] [address] [place] [address] [place] [address] Raji Shields MD, PhD, TORRES Performing Organization Address City/State/[facility]code Phone Number [employer] [facility], [address] [place], [place] [facility] [address] * HLA-B*[id number] (09/27/2017 12:56 PM CDT) Only the most recent of 2 results within the time period is included. Scan Result [facility] Specimen Blood - Line, Venous Narrative Performed At Performing Organization Address City/[facility] Phone Number [facility] [address] [place], [place] * Blood Culture, AFB Isolator (09/27/2017 12:56 PM CDT) Result MYCOBACTERIUM AVIUM (A) [facility] Comment: [facility] Identification performed by: [facility], Dept. of Microbiology Research, [facility], [address] [address], [place], [place] [address] Specimen Blood - Line, Venous Narrative Performed At By partial 16S rRNA gene sequencing, this isolate matches the M. avium type [facility] strain 100%. [facility] Antibiotic Method Susceptibility Organism Clarithromycin MANUAL METHOD 4: Susceptible Mycobacterium avium Comment: Testing performed by: [facility] Dept. of Microbiology Research [facility] [address] [facility] [address] [place] [address] Performing Organization Address City/State/Zipcode Phone Number [facility] [address] [address] [facility] * CD4 T Cell Subset (09/27/2017 6:17 AM CDT) Total Lymphocytes 737 /cu mm [facility] CD3+ T Lymphocytes % 97 (H) 49 - 84 % [facility] CD3+ T Lymphocytes 713 603 - 2,990 /cu mm [facility] CD3+/CD8+ T Lymph cells % 84 (H) 10 - 40 % [facility] CD3+/CD8+ T Lymph cells 617 125 - 1,312 /cu mm [facility] CD3+/CD4+ T Lymph cells% 11 (L) 28 - 63 % [facility] CD3+/CD4+ T Lymph Cells 84 (L) 441 - 2,156 /cu mm [facility] T Lymphocytes CD4/CD8 0.14 (L) 0.70 - 3.23 [facility] CD16+/CD56+ NK Cells % 2 (L) 4 - 25 % [facility] CD16+/CD56+ NK Cells 13 (L) 95 - 640 /cu mm [facility] CD19+ B Lymphocytes % 1 (L) 6 - 27 % [facility] CD19+ B Lymphocytes 10 (L) 107 - 698 /cu mm [facility] Specimen Blood - Central Venous Line Performing Organization Address City/[facility]/Zipcode Phone Number [address] [address] [facility] * TSH/Free T4 If Indicated (09/27/2017 6:17 AM CDT) TSH 0.31 (L) 0.35 - 4.94 uIU/mL [facility] Specimen Blood - Central Venous Line Performing Organization Address City/[facility]/Zipcode Phone Number [address] [address] [phone] [place] [address] * HIV-1 Genotype (09/27/2017 6:17 AM CDT) Pr Gene Mutations NOT DETECTED [facility] Comment: INCORPORATED We are unable to obtain a Genotype from this sample. The most common reasons for failure to genotype are insufficient viral load, mutations in the viral genome at the assay priming sites, and presence of inhibitory substance in the sample. Please correlate this result with any recent viral load for this patient and resubmit if clinically warranted. A minimum viral load of 400 copies/mL is required for testing. HIV Subtype: NOT DETERMINED Antiretroviral drugsResistance Mutations Detected Predicte d ! ! NRTIs ! ! ZDV (zidovudine or Retrovir)!N/A! ABC (abacavir or Ziagen)!N/A! ddI (didanosine or Videx) !N/A! 3TC (lamivudine or Epivir)!N/A! FTC (emtricitabine or Emtriva)!N/A! d4T (stavudine or Zerit)!N/A! TDF (tenofovir or Viread) !N/A! __!___! ! ! NNRTIs ! ! ETR (etravirine or Intelence) !N/A! EFV (efavirenz or Sustiva)!N/A! NVP (nevirapine or Viramune)!N/A! RPV (rilpivirine or Edurant)!N/A! __!___! ! ! PIs ! ! FPV (fos-amprenavir or Lexiva)!N/A! IDV (indinavir or Crixivan) !N/A! NFV (nelfinavir or Viracept)!N/A! SQV (saquinavir or Invirase)!N/A! LPV (lopinavir or Kaletra)!N/A! ATV (atazanavir or Reyataz) !N/A! TPV (tipranavir or Aptivus) !N/A! DRV (darunavir or Prezista) !N/A! ! ! __!___! PRB=PROBABLE OR EMERGING RESISTANCE OTHER MUTATIONS DETECTED: RT GENE MUTATIONS: N/A MS GENE MUTATIONS: N/A [employer] October 2017 Interpretation Algorithm The method used in this test is RT-PCR and sequencing Of the HIV-1 polymerase gene. The phrases "resistance predicted" and "probable Or emerging resistance" refer to the application of The interpretive rules. The FDA has not reviewed all of the interpretive rules used by the laboratory to predict drug resistance. FDA may not currently recognize some of the HIV gene mutations reported as predictive of drug resistance, but the laboratory considers these mutations to be associated with resistance to anti-viral drugs based on current clinical or scientific studies. The test has been validated pursuant to CLIA regulations and is not considered investigational or for research use only. Treatment decisions should be made in consideration of All relevant clinical and laboratory findings and the prescribing information for the drugs. This test was developed and its analytical performance characteristics have been determined by [facility]. It has not been cleared or approvedby FDA. This assay has been validated pursuant to theCLIA regulations and is used for clinical purposes. Specimen Blood - Central Venous Line Narrative Performed At Performing Lab [facility] *[employer] [facility] [address] [place] [address] Esvin Bennett MD Performing Organization Address City/State/Zipcode Phone Number [facility], [address] [place], [place] [facility] [address] * FSH/LH (09/27/2017 6:17 AM CDT) FSH/LH Panel Refer to individual FSH and LH [facility] results. [facility]POR[facility] Specimen Blood - Central Venous Line Performing Organization Address [facility] Phone Number [facility], [address] [phone] * HIV-1 PCR, Quantitative (09/27/2017 6:17 AM CDT) HIV-1 PCR, Quantitative 141 (H) <20 Cp/mL [facility] Specimen Blood - Central Venous Line Narrative Performed At This test uses a Real-Time Polymerase Chain Reaction (RT-PCR) methodology to [facility] detect a highly conserved region of the HIV-1 gag gene and was performed using [facility] the TEZ AmpliPrep/TEZ TaqMan HIV-1 test kit version 2.0 ([employer] Reportable range for this assay is 20 - 10,000,000 copies per mL (1.3 - 7.0 Log copies/mL). Performing Organization Address City/[facility]/Zipcode Phone Number [address] [address] [facility] * Vitamin D, 25-Hydroxy (09/27/2017 6:17 AM CDT) Vitamin D 25-Hydroxy 20.0 6.6 - 49.9 ng/mL [facility] Specimen Blood - Central Venous Line Narrative Performed At Effective 03/14/2017: Reference Range Change [facility] New: 6.6-49.9 ng/mL Previous: 13.0-47.8 ng/mL [facility] Recommended Vitamin D Target Range: 30.0-40.0 ng/mL Performing Organization Address [facility] Phone Number [facility] [address] [place] [phone] [place] [address] * Prolactin (09/27/2017 6:17 AM CDT) Prolactin 11.05 3.46 - 19.40 ng/mL [facility] Specimen Blood - Central Venous Line Performing Organization Address [facility] Phone Number [facility] [address] [place] [phone] [address] * Insulin-like growth factor (09/27/2017 6:17 AM CDT) Igf-1(Somatomedin-C) 160 52 - 328 ng/mL [facility] Z-Score Male: 0.3 -2.0 - 2.0 SD [facility] Comment: INCORPORATED This test was developed and its analytical performance characteristics have been determined by [facility]. It has not been cleared or approved by FDA. This assay has been validated pursuant to the CLIA regulations and is used for clinical purposes. Z-Score Female: DNR [facility] Specimen Blood - Central Venous Line Narrative Performed At Performing Lab [facility] [address] [address] Raji Shields MD, PhD, TORRES Performing Organization Address [facility] Phone Number [facility], [address] [place] [address] * Testosterone, free + total (09/27/2017 6:17 AM CDT) Testosterone 347 250 - 1100 ng/dL [facility] Testosterone, Free 51.4 35.0 - 155.0 pg/mL [facility] Comment: INCORPORATED This test was developed and its analytical performance characteristics have been determined by [employer]. It has not been cleared or approved by the US Food and Drug Administration. This assay has been validated pursuant to the CLIA regulations and is used for clinical purposes. Specimen Blood - Central Venous Line Narrative Performed At Performing Lab [facility] *[employer] [facility] [employer] [facility] [address] [place], [address] [place] [address] Deena Tran MD, PhD Performing Organization Address City/[facility] Phone Number [facility] [address] [place], [address] [facility] [address] * T4, free (09/27/2017 6:17 AM CDT) Free T4 0.89 0.70 - 1.48 ng/dL [facility] Specimen Blood - Central Venous Line Performing Organization Address City/State/Zipcode Phone Number [facility] [address] [place] [address] [facility] * Luteinizing hormone (LH) (09/27/2017 6:17 AM CDT) LH, Serum 3.0 1.5 - 9.3 mIU/mL [facility] Comment: INCORPORATED Children (<18 Years Old): LH reference ranges established on post-pubertal patient population. Reference range not established for pre-pubertal patients using this assay. For pre-pubertal patients, the [employer] LH, Pediatric assay is recommended (order code [id number]). Specimen Blood - Central Venous Line Narrative Performed At Performing Lab [facility] [address] [address] [place] [address] Raji Shields MD, PhD, TORRES Performing Organization Address [facility] Phone Number [facility] [employer], [address] [facility] [address] * Follicle stimulating hormone (FSH) (09/27/2017 6:17 AM CDT) Fsh 15.3 (H) 1.6 - 8.0 mIU/mL [facility] Comment: INCORPORATED Children (<18 Years Old): FSH reference ranges established on post-pubertal patient population. Reference range not established for pre-pubertal patients using this assay. For pre-pubertal patients, the [employer] [facility] FSH, Pediatrics assay is recommended (test code 07877). Specimen Blood - Central Venous Line Narrative Performed At Performing Lab [facility] [address] [address] [place], [place] [address]Maru Shields MD, PhD, TORRES Performing Organization Address City/State/Zipcode Phone Number [facility], [address] [facility] [address] [address] * Hemoglobin A1c (09/26/2017 5:16 AM CDT) Hemoglobin A1C 6.7 (H) 4.3 - 6.1 % [facility] Specimen Blood - Central Venous Line Performing Organization Address City/[facility] Phone Number [facility] [address] [place] [address] [facility] * Lipid panel (09/26/2017 5:16 AM CDT) Triglycerides 152 mg/dL [facility] Cholesterol 145 mg/dL [facility] HDL 15 mg/dL [facility] LDL Calculated 100 mg/dL [facility] Specimen Blood - Central Venous Line Narrative Performed At Triglyceride Reference Range: [facility] Low Risk <150 [facility] [id number] High Risk 200-499 Very High Risk>=500 Cholesterol Reference Range: Low Risk <200 [id number] High Risk>240 HDL Cholesterol Reference Range: Low Risk >=60 High Risk <40 LDL Cholesterol Reference Range: Optimal<100 Near [id number] Very High >=190 Performing Organization Address City/[facility] Phone Number [facility] [address] [place] [address] [facility] * US renal complete (09/26/2017 1:43 AM CDT) Narrative Performed At FINAL REPORT [facility] Ultrasound of the Kid[facility] Clinical History:REHANA Discussion: Sonographic evaluation of the kidneys was performed. There is no prior study for direct comparison. Right kidney:12.7 x 6.5 x 6.3 cm, with cortical thickness of 1.4 cm.Normal cortical echogenicity.No mass.No shadowing calculus. No hydronephrosis. Left kidney: 13.2 x 6.5 x 5.8 cm, with cortical thickness of 1.5 cm. Normal cortical echogenicity.No mass.No shadowing calculus.No hydronephrosis. Limited doppler evaluation of bilateral main renal arteries and veins demonstrate patency. Bladder: Mildly distended with a volume of 43 cc. Otherwise unremarkable. Impression: Normal renal ultrasound. Signed: Sharmaine Beth MD Report Verified Date/Time:09/26/2017 04:50:01 Reading Location: [address] Transitional Reading Room Procedure Note Interface, External Ris In - 09/26/2017 4:52 AM CDT FINAL REPORT Ultrasound of the Kidneys Clinical History: [...] Otherwise unremarkable. Impression: Normal renal ultrasound. Signed: Sharmaine Beth MD Report Verified Date/Time: 09/26/2017 04:50:01 Reading Location: [address] Transitional Reading Room Performing Organization Address City/[facility]/Zipcode Phone Number [facility] * Sodium, random urine (09/25/2017 9:59 PM CDT) Sodium Urine 58 meq/L [facility] Specimen Urine - Urine, Voided Narrative Performed At Reference Range: No Normals [facility] Performing Organization Address City/[facility]/Zipcode Phone Number [address] [address] [facility] * Protein, random urine (09/25/2017 9:59 PM CDT) Protein, Urine 93 (H) 0 - 14 mg/dL [facility] Specimen Urine - Urine, Voided Performing Organization Address [facility] Phone Number [place] [phone] * Creatinine, random urine (09/25/2017 9:59 PM CDT) Creatinine, Ur 62.4 mg/dL [facility] Specimen Urine - Urine, Voided Narrative Performed At Reference Range: No Normals [facility] Performing Organization Address [facility] Phone Number [address] * Eosinophil smear (09/25/2017 9:59 PM CDT) Eosinophil Smear No EOS seen No EOS seen [facility] Specimen Urine - Urine, Voided Performing Organization Address [facility] Phone Number [address] * Urinalysis w/Microscopic (09/25/2017 9:58 PM CDT) Color, UA Yellow [facility] Clarity, UA Clear [facility] Specific [place], UA 1.010 1.001 - 1.035 [facility] pH, UA 6.5 5.0 - 8.0 [facility] Protein, UA 100 mg/dL (A) Negative [facility] Glucose, UA 50 mg/dL (A) Negative [facility] Ketones, UA Negative Negative [facility] Bilirubin, UA Negative Negative [facility] Blood, UA Negative Negative [facility] Nitrite, UA Negative Negative [facility] Leukocytes, UA Negative Negative [facility] Urobilinogen, UA 0.2 0.2 - 1.0 mg/dL [facility] RBC, UA 1 /HPF [facility] WBC, UA 2 /HPF [facility] Bacteria, UA Rare [facility] Mucus Rare [facility] Specimen Source Urine, Voided [facility] Specimen Urine - Urine, Voided Performing Organization Address [facility] [place] [address] [phone] * Urine culture (09/25/2017 9:58 PM CDT) Result <10,000 col/mL skin phyllis [facility] Specimen Urine - Urine, Clean Catch Performing Organization Address [facility] Phone Number [address] * PTH, intact (09/25/2017 8:41 PM CDT) PTH <4.0 (L) 8.5 - 72.5 pg/mL [facility] Specimen Blood - Central Venous Line Performing Organization Address [facility] Phone Number [address] * Blood culture #2 (09/25/2017 6:21 PM CDT) Only the most recent of 2 results within the time period is included. Result No growth in 5 days [facility] Specimen Blood - Arm, Left Performing Organization Address [facility] Phone Number [address] * Prothrombin time/INR (09/25/2017 6:01 PM CDT) Protime 15.5 (H) 11.7 - 14.7 seconds [facility] INR 1.2 <=5.9 [facility] Specimen Blood - Line, Venous Narrative Performed At RECOMMENDED COUMADIN/WARFARIN INR THERAPY RANGES [facility] STANDARD DOSE: 2.0 - 3.0 Includes: PROPHYLAXIS for venous thrombosis, [facility] systemic embolization; TREATMENT for venous thrombosis and/or pulmonary embolus. HIGH RISK: Target INR is 2.5-3.5 for patients with mechanical heart valves. Performing Organization Address City/State/[place] [address] [phone] [place] [address] * Phosphorus (09/25/2017 6:01 PM CDT) Phosphorus 4.4 2.3 - 4.7 mg/dL [facility] Specimen Blood - Line, Venous Performing Organization Address [facility] Phone Number [address] [address] [phone] [place] [address] * B-type Natriuretic Factor (BNP) (09/25/2017 6:01 PM CDT) BNP 59 0 - 100 pg/mL [facility] Specimen Blood - Line, Venous Performing Organization Address [facility] Phone Number [place] [phone] [place] [address] * Comprehensive metabolic panel (09/25/2017 6:01 PM CDT) Protein, Total 6.5 6.0 - 8.3 gm/dL [facility] Albumin 3.4 (L) 3.5 - 5.0 g/dL [facility] Alkaline Phosphatase 271 (H) 40 - 150 U/L [facility] Total Bilirubin 0.4 0.2 - 1.2 mg/dL [facility] Sodium 135 (L) 136 - 145 meq/L [facility] Potassium 3.4 (L) 3.5 - 5.1 meq/L [facility] Chloride 109 (H) 98 - 107 meq/L [facility] CO2 17 (L) 22 - 29 meq/L [facility] BUN 33 (H) 7 - 21 mg/dL [facility] Creatinine 3.18 (H) 0.57 - 1.25 mg/dL [facility] Glucose 192 (H) 70 - 105 mg/dL [facility] Calcium 10.5 (H) 8.4 - 10.2 mg/dL [facility] AST 12 5 - 34 U/L [facility] ALT 20 6 - 55 U/L [facility] EGFR Comment: INSUFFICIENT CLINICAL mL/min/1.73 sq m [facility] DATA TO CALCULATE ESTIMATED [facility] GFR. Specimen Blood - Line, Venous Performing Organization Address City/State/Zipcode Phone Number [facility] [address] [place], [place] [phone] [facility] after 06/20/2017 Insurance Payer Benefit Subscriber ID Type Phone Address Plan / Group MEDICAID - MEDICAID MGD ELVIA xxxxxxxxx Medicaid CARE COMM STAR Contracted PLAN Advance Directives For more information, please contact: [facility] [address] [place] [address] [phone] Date Inactivated Comments Code Status Date Activated 09/30/2017 8:33 PM Full Code 09/25/2017 4:11 PM This code status was determined by: Patient
[2018-06-21] MEDS ORDERED: ONDANSETRON HCL INJ 2MG/ML 2ML 2 MG/ML VIAL ONE (16:50)
[2018-06-21] MEDS ORDERED: SEVOFLURANE INHAL SOLN 250 ML PEN BTL ONE (16:50)
[2018-06-21] MEDS ORDERED: LIDOCAINE HCL 2% LOCAL INJ 5 ML SDV VIAL INJ ONE (16:50)
[2018-06-21] MEDS ORDERED: PROPOFOL IV EMULSION 10 MG/ML 20 ML VIAL ONE (16:50)
[2018-06-21] MEDS ORDERED: VANCOMYCIN HCL 1GM/NS 250 ML BAG IV SCH (18:00)
--- NOTE | 2018-06-21 18:03 | Diagnostic Imaging Report ---
EXAMINATION: PA and lateral views of the chest. COMPARISON: Chest 2 views 10/01/2016 CLINICAL HISTORY: Cough for 2 days, history of lymphoma DISCUSSION: Lines/tubes: Interval removal of previously visualized right upper chest Port-A-Cath Lungs: The lungs are well inflated and grossly clear. There is no evidence of pneumonia or pulmonary edema. Pleura: There is no pleural effusion or pneumothorax. Heart and mediastinum: Cardiomediastinal silhouette is unremarkable. Pulmonary vasculature is normal. Bones and soft tissues: No acute bony abnormalities. IMPRESSION: No acute cardiopulmonary abnormalities. Signed by: Dr. Alexis Mo M.D. on 06/21/2018 5:59 PM
[2018-06-21 18:54] LABS: BASOPHILS # (AUTO) 0.1 (0.0-0.1); BASOPHILS % 1.2 % (0.0-1.0); EOSINOPHILS # (AUTO) 0.1 (0.0-0.4); HEMATOCRIT 29.3 % (38.2-49.6); HEMOGLOBIN 9.4 g/dL (14.0-18.0); LYMPHOCYTES # (AUTO) 1.5 (1.0-3.2); LYMPHOCYTES % 29.8 % (18.0-39.1); MEAN CORPUSCULAR HEMOGLOBIN 29.6 pg (28-32); MEAN CORPUSCULAR HGB CONC 32.1 g/dL (31-35); MEAN CORPUSCULAR VOLUME 92.1 fL (81-99); MONOCYTES # (AUTO) 0.3 (0.2-0.8); MONOCYTES % 6.2 % (4.4-11.3); NEUTROPHILS # (AUTO) 3.1 (2.1-6.9); NEUTROPHILS % 59.5 % (38.7-80.0); PLATELET COUNT 232 x10e3/uL (140-360); RED BLOOD COUNT 3.18 x10e6/uL (4.3-5.7); RED CELL DISTRIBUTION WIDTH 16.3 % (11.7-14.4)
[2018-06-21] MEDS: CEFTRIAXONE SOD 1 GRAM/0.9% SOD CHL 50ML BAG IV SCH (19:04)
--- NOTE | 2018-06-21 19:19 | NUR ---
Pt.'s first set of blood cultures were drawn at 1855. When I went to get the second set of blood cultures at 1920 the nurse had already hung antibiotics. The nurse had been made aware the second set had not been drawn yet.
--- NOTE | 2018-06-21 19:28 | NUR ---
[facility] CALLED - ETA 45 MINUTES
--- OUTSIDE RECORDS SUMMARY | 2018-06-21 19:35 | XMS REPORT | Clinical Summary ---
Author Author [facility] Organization [facility] Address Unknown Phone Unavailable Care Team Providers Care Chinese Instructor Name Role Phone Jenna Crain MD PCP [...] for intractable diarrhea w/u. 02/09/2016-02/23/16: Admitted at [facility] for work up of intractable diarrhea, no [...] Taken Vital Sign Reading 05/15/2018 11:44 AM BENEFITS ADVISOR Blood Pressure 107/70 05/15/2018 11:44 AM BENEFITS ADVISOR Pulse 117 05/15/2018 11:44 AM BENEFITS ADVISOR Temperature 36.8 C (98.2 F) 05/15/2018 11:44 AM BENEFITS ADVISOR Respiratory Rate 18 05/15/2018 11:44 AM BENEFITS ADVISOR Oxygen Saturation 99% - Inhaled Oxygen - Concentration 05/15/2018 11:44 AM BENEFITS ADVISOR Weight 78.2 kg (172 lb 8 oz) 05/15/2018 11:44 AM BENEFITS ADVISOR Height 180.3 cm (5' 11") 05/15/2018 11:44 AM BENEFITS ADVISOR Body Mass Index 24.06 Plan of Treatment Care Team Description Date Type Specialty 06/26/2018 Appointment Radiology 07/03/2018 Appointment Lab Abdiaziz Olson, Fellow() [address] [place] [phone] 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 07/03/2018 Office Visit Oncology Procedures Comments Procedure Name Priority Date/Time Associated Diagnosis COMPREHENSIVE METABOLIC Routine 05/15/2018 Lymphoblastic lymphoma, 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) 1:15 PM BENEFITS ADVISOR unspecified body region CBC/DIFF Routine 05/15/2018 Lymphoblastic lymphoma, 1:15 PM BENEFITS ADVISOR unspecified body region CT ABDOMEN AND PELVIS W Routine 05/08/2018 Lymphoblastic lymphoma, CONTRAST - ROUTINE 2:40 PM BENEFITS ADVISOR unspecified body region CT CHEST W CONTRAST Routine 05/08/2018 Lymphoblastic lymphoma, 2:40 PM BENEFITS ADVISOR unspecified body region CT SOFT TISSUE NECK W Routine 05/08/2018 Lymphoblastic lymphoma, CONTRAST 2:40 PM BENEFITS ADVISOR unspecified body region COMPREHENSIVE METABOLIC Routine 05/07/2018 Lymphoblastic lymphoma, 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) 2:38 PM BENEFITS ADVISOR unspecified body region CBC/DIFF Routine 05/07/2018 Lymphoblastic lymphoma, 2:38 PM BENEFITS ADVISOR unspecified body region CT CHEST W CONTRAST [...] GRP Routine 08/10/2017 Lymphoblastic lymphoma, 11:15 AM BENEFITS ADVISOR unspecified body region HIV RNA VIRAL LOAD Routine 08/10/2017 Lymphoblastic lymphoma, 11:15 AM BENEFITS ADVISOR unspecified body region COMPREHENSIVE METABOLIC Routine 08/10/2017 Lymphoblastic lymphoma, 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 Pathologist [facility] Albumin 2.1 (L) 4.2 - 5.5 g/dL [facility] 1 Calcium 7.3 (L) 8.6 - 10.3 mg/dL [facility] 1 CO2 21 21 - 31 mmol/L [facility] 1 Chloride 107 98 - 107 mmol/L [facility] 1 Creatinine 1.30 0.7 - 1.3 mg/dL [facility] 1 Glucose 92 70 - 110 mg/dL [facility] 1 Alk Phos 651 (H) 34 - 104 U/L [facility] 1 Potassium 5.0 3.5 - 5.1 mmol/L [facility] 1 Sodium 136 136 - 145 mmol/L [facility] 1 ALT 30 7 - 52 U/L [facility] 1 AST 21 13 - 39 U/L [facility] 1 Urea Nitrogen 15 7 - 25 mg/dL [facility] 1 T Bilirubin 0.4 0.2 - 1.0 mg/dL [facility] 1 T Protein 4.5 (L) 6.4 - 8.2 g/dL [facility] 1 GFR, Estimated 59 mL/min/1.73 m2 [facility] 1 GFR, Estim, >60 mL/min/1.73 m2 [facility] Afr-Am [facility] 1 Anion Gap 8 [facility] 1 Specimen Blood Performing Organization Address City/State/Zipcode Phone Number MISYS [facility] * CBC/DIFF (05/15/2018 1:15 PM BENEFITS ADVISOR) Only the most recent of 4 results within the time period is included. WBC 8.3 4.5 - 12.0 K/uL [facility] 2 RBC 3.43 (L) 4.60 - 6.20 M/uL [facility] 2 Hemoglobin 9.5 (L) 14.0 - 18.0 g/dL [facility] 2 Hematocrit 31.6 (L) 40.0 [...] Performing Organization Address City/State/Zipcode Phone Number [facility] 2 * CT ABDOMEN AND PELVIS W CONTRAST - ROUTINE (05/08/2018 2:40 PM BENEFITS ADVISOR) Impressions Performed At IMPRESSION: SMS 1.Significant interval [...] Interface, Rad/Mammog In - 05/08/2018 3:11 PM BENEFITS ADVISOR EXAM: CT CHEST WITH CONTRAST EXAM: CT [...] current study. There is a confluence of michale mass surrounding the proximal branching of the [...] CT CHEST W CONTRAST (05/08/2018 2:40 PM BENEFITS ADVISOR) Only the most recent of 3 results [...] Interface, Rad/Mammog In - 05/08/2018 3:11 PM BENEFITS ADVISOR EXAM: CT CHEST WITH CONTRAST EXAM: CT [...] TISSUE NECK W CONTRAST (05/08/2018 2:40 PM BENEFITS ADVISOR) Only the most recent of 3 results within the time period is included. Impressions Performed At IMPRESSION: SMS No cervical lymphadenopathy. Examination remains stable. This [facility] radiology report is a preliminary resident dictation until finalized by an attending.Changes to this preliminary report may occur in an additional preliminary or finalized version. Dictated By: Jt Francois MD, 05/09/2018 8:28 AM I have reviewed the study and agree with the findings in this report. Signed By: Feliciano Carter MD, 05/09/2018 8:30 AM Narrative Performed At EXAM: CT NECK WITH CONTRAST [facility] DATE: 05/08/2018 2:39 PM INDICATION: Surveillance. Lymphoblastic [...] Interface, Rad/Mammog In - 05/09/2018 8:35 AM BENEFITS ADVISOR EXAM: CT NECK WITH CONTRAST DATE: 05/08/2018 [...] No cervical lymphadenopathy. Examination remains stable. This [facility] radiology report is a preliminary resident dictation [...] size from 08/13/2017. 4.Diverticulosis without diverticulitis. This [facility] radiology report is a preliminary resident dictation [...] from 08/13/2017. 4. Diverticulosis without diverticulitis. This [facility] radiology report is a preliminary resident dictation until finalized by an attending. Changes to this preliminary report may occur in an additional preliminary or finalized version. Dictated By: Brendan Perez MD, 12/24/2017 11:39 AM I have reviewed the study and agree with the findings in this report. Signed By: Mae Babb MD, 12/24/2017 1:33 PM Performing Organization Address City/[facility]/Zipcode Phone Number SMS * CD4/CD8 RATIO GRP (08/10/2017 11:15 AM BENEFITS ADVISOR) Lymphocyte Abs 1,016.5 /uL [facility] [...] MOLECULAR PATHOLOGY Specimen Blood Performing Organization Address City/[facility] Phone Number [facility] * HIV RNA VIRAL LOAD (08/10/2017 11:15 AM BENEFITS ADVISOR) HIV-1 RNA 41 copies/mL [facility] Copies [...] Effective Phone Address Plan / Dates Group [facility] xxxxxxxxx 2016-P [phone] [address] [employer] resent [id number] [place] [address] Advance Directives For more information, please contact: [address] [address] Date Inactivated Comments Code Status Date Activated 05/07/2016 6:56 PM Full Code 05/03/2016 12:03 AM 05/03/2016 12:03 AM Full Code 05/02/2016 3:11 PM 04/21/2016 4:26 PM Full Code 04/16/2016 1:09 AM 04/13/2016 10:48 PM Full Code 04/11/2016 12:44 AM 04/09/2016 3:08 PM Full Code 04/03/2016 10:10 PM
--- OUTSIDE RECORDS SUMMARY | 2018-06-21 19:36 | XMS REPORT | Clinical Summary ---
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 % Neutros 74 % [facility] % Lymphs 5 % [facility] % Monos 8 % [facility] % Metamyelo 3 (H) 0 - 0 % [facility] % Myelo 7 (H) 0 - 0 % [facility] % Bands 3 0 - 10 % [facility] # Neutros 5.33 1.78 - 5.38 K/ul [facility] # Lymphs 0.36 (L) 1.32 - 3.57 K/ul [facility] # Monos 0.58 0.30 - 0.82 K/uL [facility] # Metamyelo 0.22 (H) 0.00 - 0.00 K/uL [facility] # Myelo 0.50 (H) 0.00 - 0.00 K/uL [facility] # Bands 0.22 0.00 - 0.80 K/uL [facility] Total Counted 100 [facility] WBC Morphology Normal [facility] Platelet Morphology Normal [facility] Anisocytosis 1+ few [facility] Poikilocytes 2+ moderate [facility] Artifact Present [facility] Platelet Conc Adequate [facility] Specimen Blood Narrative Performed At Received comment: [facility] User comments: [facility] Slide comments: Performing Organization Address City/State/Zipcode Phone Number [facility] [address] [place] [address] [facility] * Calcium, Ionized (09/30/2017 3:34 AM CDT) Only the most recent of 5 results within the time period is included. Calcium, Ion 1.13 1.12 - 1.27 mmol/L [facility] pH, Blood 7.42 [facility] Specimen Blood Performing Organization Address City/State/Zipcode Phone Number [facility] [address] [place] [address] [facility] * CBC with platelet count + automated diff (09/30/2017 3:34 AM CDT) Only the most recent of 6 results within the time period is included. WBC 7.2 3.5 - 10.5 K/L [facility] RBC 2.83 (L) 4.63 - 6.08 M/L [facility] Hemoglobin 8.1 (L) 13.7 - 17.5 GM/DL [facility] Hematocrit 26.3 (L) 40.1 - 51.0 % [facility] MCV 92.9 (H) 79.0 - 92.2 fL [facility] MCH 28.6 25.7 - 32.2 pg [facility] MCHC 30.8 (L) 32.3 - 36.5 GM/DL [facility] RDW 15.5 (H) 11.6 - 14.4 % [facility] Platelets 193 150 - 450 K/CU MM [facility] MPV 9.8 9.4 - 12.4 fL [facility] nRBC 0 0 - 0 /100 WBC [facility] Specimen Blood Performing Organization Address City/[facility]/Zipcode Phone Number [facility] [address] [place] [address] [facility] * Magnesium (09/30/2017 3:34 AM CDT) Only the most recent of 6 results within the time period is included. Magnesium 1.8Comment: Specimen slightly 1.6 - 2.6 mg/dL [facility] Specimen Blood Performing Organization Address City/[facility] Phone Number [facility] [address] [place] [address] [facility] * Basic metabolic panel (09/30/2017 3:34 AM CDT) Only the most recent of 5 results within the time period is included. Sodium 141 136 - 145 meq/L [facility] Potassium 3.7Comment: Specimen slightly 3.5 - 5.1 meq/L [facility] Chloride 109 (H) 98 - 107 meq/L [facility] CO2 23 22 - 29 meq/L [facility] BUN 21 7 - 21 mg/dL [facility] Creatinine 1.39 (H)Comment: Specimen 0.57 - 1.25 mg/dL [facility] Glucose 296 (H) 70 - 105 mg/dL [facility] Calcium 9.1 8.4 - 10.2 mg/dL [facility] EGFR Comment: INSUFFICIENT CLINICAL mL/min/1.73 sq m [facility] DATA TO CALCULATE ESTIMATED [facility] GFR. Specimen Blood Performing Organization Address City/[facility] Centercode Phone Number [address] [address] [facility] * PTH-related peptide (09/27/2017 12:58 PM [...] analytical performance characteristics have been determined by [employer]. It has not been cleared or approved by FDA. This assay has been validated pursuant to the CLIA regulations and is used for clinical purposes. Specimen Blood - Central Venous Line Narrative Performed At Performing Lab new test company [employer] [place] [address] [place] [address] Raji Shields MD, PhD, TORRES Performing Organization Address City/State/[facility] Centercode Phone Number [facility], [address] [place], [place] INCOR[facility]ly [facility] [address] * HLA-B*[id number] (09/27/2017 12:56 PM CDT) Only the most recent of 2 results within the time period is included. Scan Result [facility] Specimen Blood - Line, Venous Narrative Performed At Performing Organization Address City/[facility] Centercode Phone Number [facility] [address] [place], [place] * Blood Culture, AFB Isolator (09/27/2017 12:56 PM CDT) Result MYCOBACTERIUM AVIUM (A) [facility] Comment: [facility] Identification performed by: [facility], Dept. of Microbiology Research, [facility], [address] [address], [place], [place] [address] Specimen Blood - Line, Venous Narrative Performed At By partial 16S rRNA gene sequencing, this isolate matches the M. avium type [facility] strain 100%. [facility] Antibiotic Method Susceptibility Organism Clarithromycin MANUAL METHOD 4: Susceptible Mycobacterium avium Comment: Testing performed by: [facility] Dept. of Microbiology Research [facility] [address] [facility] [address] [place] [address] Performing Organization Address City/State/Zipcode Phone Number [facility] [address] [address] [facility] * CD4 T Cell Subset (09/27/2017 6:17 AM CDT) Total Lymphocytes 737 /cu mm [facility] CD3+ T Lymphocytes % 97 (H) 49 - 84 % [facility] CD3+ T Lymphocytes 713 603 - 2,990 /cu mm [facility] CD3+/CD8+ T Lymph cells % 84 (H) 10 - 40 % [facility] CD3+/CD8+ T Lymph cells 617 125 - 1,312 /cu mm [facility] CD3+/CD4+ T Lymph cells% 11 (L) 28 - 63 % [facility] CD3+/CD4+ T Lymph Cells 84 (L) 441 - 2,156 /cu mm [facility] T Lymphocytes CD4/CD8 0.14 (L) 0.70 - 3.23 [facility] CD16+/CD56+ NK Cells % 2 (L) 4 - 25 % [facility] CD16+/CD56+ NK Cells 13 (L) 95 - 640 /cu mm [facility] CD19+ B Lymphocytes % 1 (L) 6 - 27 % [facility] CD19+ B Lymphocytes 10 (L) 107 - 698 /cu mm [facility] Specimen Blood - Central Venous Line Performing Organization Address City/[facility]/Zipcode Phone Number [address] [address] [facility] * TSH/Free T4 If Indicated (09/27/2017 6:17 AM CDT) TSH 0.31 (L) 0.35 - 4.94 uIU/mL [facility] Specimen Blood - Central Venous Line Performing Organization Address City/[facility]/Zipcode Phone Number [address] [address] [phone] [place] [address] * HIV-1 Genotype (09/27/2017 6:17 AM CDT) [...] OTHER MUTATIONS DETECTED: RT GENE MUTATIONS: N/A [place] GENE MUTATIONS: N/A [employer] October 2017 Interpretation Algorithm The method used [...] analytical performance characteristics have been determined by [facility]. It has not been cleared or approvedby FDA. This assay has been validated pursuant to theCLIA regulations and is used for clinical purposes. Specimen Blood - Central Venous Line Narrative Performed At Performing Lab [facility] *[employer] [facility] [address] [place] [address] Esvin Bennett MD Performing Organization Address City/State/Zipcode Phone Number [facility], [address] [place], [place] INCOR[facility] [place] [address] * FSH/LH (09/27/2017 6:17 AM CDT) FSH/LH Panel Refer to individual FSH and LH [facility] results. INCORPORATED Specimen Blood - Central Venous Line Performing Organization Address [facility] Phone Number [facility], [address] [phone] * HIV-1 PCR, Quantitative (09/27/2017 6:17 AM CDT) HIV-1 PCR, Quantitative 141 (H) <20 Cp/mL [facility] Specimen Blood - Central Venous Line Narrative Performed At This test uses a Real-Time Polymerase Chain Reaction (RT-PCR) methodology to [facility] detect a highly conserved region of the HIV-1 gag gene and was performed using [facility] the TEZ AmpliPrep/TEZ TaqMan HIV-1 test kit version 2.0 ([employer] Reportable range for this assay is 20 - 10,000,000 copies per mL (1.3 - 7.0 Log copies/mL). Performing Organization Address City/[facility]/Zipcode Phone Number [address] [address] [facility] * Vitamin D, 25-Hydroxy (09/27/2017 6:17 AM CDT) Vitamin D 25-Hydroxy 20.0 6.6 - 49.9 ng/mL [facility] Specimen Blood - Central Venous Line Narrative Performed At Effective 03/14/2017: Reference Range Change [facility] New: 6.6-49.9 ng/mL Previous: 13.0-47.8 ng/mL [facility] Recommended Vitamin D Target Range: 30.0-40.0 ng/mL Performing Organization Address [facility] Phone Number [facility] [address] [place] [address] [phone] [place] [address] * Prolactin (09/27/2017 6:17 AM CDT) Prolactin 11.05 3.46 - 19.40 ng/mL [facility] Specimen Blood - Central Venous Line Performing Organization Address [facility] Phone Number [facility] [address] [place] [address] [phone] * Insulin-like growth factor (09/27/2017 6:17 AM CDT) Igf-1(Somatomedin-C) 160 52 - 328 ng/mL [facility] Z-Score Male: 0.3 -2.0 - 2.0 SD [facility] Comment: INCORPORATED This test was developed and its analytical performance characteristics have been determined by [employer]. It has not been cleared or approved by FDA. This assay has been validated pursuant to the CLIA regulations and is used for clinical purposes. Z-Score Female: DNR [facility] Specimen Blood - Central Venous Line Narrative Performed At Performing Lab [facility] [employer] [employer] [address] [address] Raji Shields MD, PhD, TORRES Performing Organization Address [facility] Phone Number new test company [facility], [address] [place] [address] * Testosterone, free + total (09/27/2017 6:17 AM CDT) Testosterone 347 250 - 1100 ng/dL [facility] Testosterone, Free 51.4 35.0 - 155.0 pg/mL [facility] Comment: INCORPORATED This test was developed and its analytical performance characteristics have been determined by [employer]. It has not been cleared or approved by the US Food and Drug Administration. This assay has been validated pursuant to the CLIA regulations and is used for clinical purposes. Specimen Blood - Central Venous Line Narrative Performed At Performing Lab [facility] *[employer] [facility] [place], [address] [place] [address] Deena Tran MD, PhD Performing Organization Address City/[facility] Centercode Phone Number [facility] [place], [address] [facility] [address] * T4, free (09/27/2017 6:17 AM CDT) Free T4 0.89 0.70 - 1.48 ng/dL [facility] Specimen Blood - Central Venous Line Performing Organization Address City/State/Zipcode Phone Number [facility] [address] [place] [address] [facility] * Luteinizing hormone (LH) (09/27/2017 6:17 AM CDT) LH, Serum 3.0 1.5 - 9.3 mIU/mL [facility] Comment: INCORPORATED Children (<18 Years Old): LH reference ranges established on post-pubertal patient population. Reference range not established for pre-pubertal patients using this assay. For pre-pubertal patients, the [employer] LH, Pediatric assay is recommended (order code [id number]). Specimen Blood - Central Venous Line Narrative Performed At Performing Lab [facility] [employer] [place] [address] [place] [address] Raji Shields MD, PhD, TORRES Performing Organization Address [facility] Phone Number [facility] [employer], [address] [facility] [address] * Follicle stimulating hormone (FSH) (09/27/2017 6:17 AM CDT) Fsh 15.3 (H) 1.6 - 8.0 mIU/mL [facility] Comment: INCORPORATED Children (<18 Years Old): FSH reference ranges established on post-pubertal patient population. Reference range not established for pre-pubertal patients using this assay. For pre-pubertal patients, the [employer] FSH, Pediatrics assay is recommended (test code 41175). Specimen Blood - Central Venous Line Narrative Performed At Performing Lab new test company [employer] [place] [address] [place], [place] [address]Maru Shields MD, PhD, TORRES Performing Organization Address City/State/Zipcode Phone Number [facility], [address] [facility] [address] [address] * Hemoglobin A1c (09/26/2017 5:16 AM CDT) Hemoglobin A1C 6.7 (H) 4.3 - 6.1 % [facility] Specimen Blood - Central Venous Line Performing Organization Address City/[facility]ode Phone Number [facility] [address] [place] [address] [facility] * Lipid panel (09/26/2017 5:16 AM CDT) Triglycerides 152 mg/dL [facility] Cholesterol 145 mg/dL [facility] HDL 15 mg/dL [facility] LDL Calculated 100 mg/dL [facility] Specimen Blood - Central Venous Line Narrative Performed At Triglyceride Reference Range: [facility] Low Risk <150 [facility] [id number] High Risk 200-499 Very High Risk>=500 Cholesterol Reference Range: Low Risk <200 [id number] High Risk>240 HDL Cholesterol Reference Range: Low Risk >=60 High Risk <40 LDL Cholesterol Reference Range: Optimal<100 Near [id number] Umzx547-930 Very High >=190 Performing Organization Address City/[facility]ode Phone Number [facility] [address] [place] [address] [facility] * US renal complete (09/26/2017 1:43 AM CDT) Narrative Performed At FINAL REPORT [facility] Ultrasound of the Kidneys Clinical History:REHANA Discussion: [...] MD Report Verified Date/Time:09/26/2017 04:50:01 Reading Location: [address] Transitional Reading Room Procedure Note Interface, [...] Report Verified Date/Time: 09/26/2017 04:50:01 Reading Location: [address] Transitional Reading Room Performing Organization Address City/[facility]/Zipcode Phone Number [facility] * Sodium, random urine (09/25/2017 9:59 PM CDT) Sodium Urine 58 meq/L [facility] Specimen Urine - Urine, Voided Narrative Performed At Reference Range: No Normals [facility] Performing Organization Address City/[facility]/Zipcode Phone Number [address] [address] [facility] * Protein, random urine (09/25/2017 9:59 PM CDT) Protein, Urine 93 (H) 0 - 14 mg/dL [facility] Specimen Urine - Urine, Voided Performing Organization Address [facility] Cent[facility]ode Phone Number [place] [phone] * Creatinine, random urine (09/25/2017 9:59 PM CDT) Creatinine, Ur 62.4 mg/dL [facility] Specimen Urine - Urine, Voided Narrative Performed At Reference Range: No Normals [facility] Performing Organization Address [facility] Phone Number [address] * Eosinophil smear (09/25/2017 9:59 PM CDT) Eosinophil Smear No EOS seen No EOS seen [facility] Specimen Urine - Urine, Voided Performing Organization Address [facility] Phone Number [address] * Urinalysis w/Microscopic (09/25/2017 9:58 PM CDT) Color, UA Yellow [facility] Clarity, UA Clear [facility] Specific [place], UA 1.010 1.001 - 1.035 [facility] pH, UA 6.5 5.0 - 8.0 [facility] Protein, UA 100 mg/dL (A) Negative [facility] Glucose, UA 50 mg/dL (A) Negative [facility] Ketones, UA Negative Negative [facility] Bilirubin, UA Negative Negative [facility] Blood, UA Negative Negative [facility] Nitrite, UA Negative Negative [facility] Leukocytes, UA Negative Negative [facility] Urobilinogen, UA 0.2 0.2 - 1.0 mg/dL [facility] RBC, UA 1 /HPF [facility] WBC, UA 2 /HPF [facility] Bacteria, UA Rare [facility] Mucus Rare [facility] Specimen Source Urine, Voided [facility] Specimen Urine - Urine, Voided Performing Organization Address [facility] [address] [phone] * Urine culture (09/25/2017 9:58 PM CDT) Result <10,000 col/mL skin phyllis [facility] Specimen Urine - Urine, Clean Catch Performing Organization Address [facility] Phone Number [address] * PTH, intact (09/25/2017 8:41 PM CDT) PTH <4.0 (L) 8.5 - 72.5 pg/mL [facility] Specimen Blood - Central Venous Line Performing Organization Address [facility] Phone Number [address] * Blood culture #2 (09/25/2017 6:21 PM CDT) Only the most recent of 2 results within the time period is included. Result No growth in 5 days [facility] Specimen Blood - Arm, Left Performing Organization Address [facility] Phone Number [address] * Prothrombin time/INR (09/25/2017 6:01 PM CDT) Protime 15.5 (H) 11.7 - 14.7 seconds [facility] INR 1.2 <=5.9 [facility] Specimen Blood - Line, Venous Narrative Performed At RECOMMENDED COUMADIN/WARFARIN INR THERAPY RANGES [facility] STANDARD DOSE: 2.0 - 3.0 Includes: PROPHYLAXIS for venous thrombosis, [facility] systemic embolization; TREATMENT for venous thrombosis and/or pulmonary embolus. HIGH RISK: Target INR is 2.5-3.5 for patients with mechanical heart valves. Performing Organization Address City/State/[place] [address] [phone] [place] [address] * Phosphorus (09/25/2017 6:01 PM CDT) Phosphorus 4.4 2.3 - 4.7 mg/dL [facility] Specimen Blood - Line, Venous Performing Organization Address [facility] Phone Number [address] [address] [phone] [place] [address] * B-type Natriuretic Factor (BNP) (09/25/2017 6:01 PM CDT) BNP 59 0 - 100 pg/mL [facility] Specimen Blood - Line, Venous Performing Organization Address [facility] Phone Number [place] [phone] [place] [address] * Comprehensive metabolic panel (09/25/2017 6:01 PM CDT) Protein, Total 6.5 6.0 - 8.3 gm/dL [facility] Albumin 3.4 (L) 3.5 - 5.0 g/dL [facility] Alkaline Phosphatase 271 (H) 40 - 150 U/L [facility] Total Bilirubin 0.4 0.2 - 1.2 mg/dL [facility] Sodium 135 (L) 136 - 145 meq/L [facility] Potassium 3.4 (L) 3.5 - 5.1 meq/L [facility] Chloride 109 (H) 98 - 107 meq/L [facility] CO2 17 (L) 22 - 29 meq/L [facility] BUN 33 (H) 7 - 21 mg/dL [facility] Creatinine 3.18 (H) 0.57 - 1.25 mg/dL [facility] Glucose 192 (H) 70 - 105 mg/dL [facility] Calcium 10.5 (H) 8.4 - 10.2 mg/dL [facility] AST 12 5 - 34 U/L [facility] ALT 20 6 - 55 U/L [facility] EGFR Comment: INSUFFICIENT CLINICAL mL/min/1.73 sq m [facility] DATA TO CALCULATE ESTIMATED [facility] GFR. Specimen Blood - Line, Venous Performing Organization Address City/State/Zipcode Phone Number [facility] [address] [place], [place] [phone] [facility] after 06/20/2017 Insurance Payer Benefit Subscriber ID Type Phone Address Plan / Group MEDICAID - MEDICAID MGD ELVIA xxxxxxxxx Medicaid CARE COMM STAR Contracted PLAN Advance Directives For more information, please contact: [facility] [address] [place] [address] [phone] Date Inactivated Comments Code Status Date Activated 09/30/2017 8:33 PM Full Code 09/25/2017 4:11 PM This code status was determined by: Patient
[2018-06-21] MEDS ORDERED: NORCO 5-325 TA1 EACH PO (20:05)
[2018-06-21] MEDS: HYDROCODONE/APAP 5MG-325MG TAB PO PRN (20:15)
[2018-06-21 20:33] LABS: BAND NEUTROPHILS % (MANUAL) 1 %; HYPOCHROMASIA SLIGHT; LYMPHOCYTES % (MANUAL) 20 % (19-48); MONOCYTES % (MANUAL) 8 % (3.4-9.0); NEUTROPHILS % (MANUAL) 71 % (40-74); PLATELET ESTIMATE ADEQUATE; PLATELET MORPHOLOGY COMMENT NORMAL; RBC MORPHOLOGY COMMENT NORMAL
--- NOTE | 2018-06-21 20:40 | NUR ---
received pt form [facility]TT[facility], AAOx4, resp even and unlabored, productive cough with thin white mucus, informed of need for sputum culture, able to ambulate by self with steady gait, c/o generalized pain /, pain meds on board, skin intact, port to right side of abdomen, dressing changed, uses port to drain fluids from abdomen due to ascites, was put in "3 weeks ago", blood cultures sent and taken to lab, left AC 20G IV patent and intact, bed in lowest and locked position, call light in reach and instructed to call when assistance needed
[2018-06-21 21:00] VITALS: BP 107/59
[2018-06-21] MEDS ORDERED: SODIUM CHLORIDE 0.9% 250ML 250 ML ONE (21:13)
[2018-06-22] VITALS (9 sets, daily range): BP systolic 81–113; BP diastolic 50–60
[2018-06-22] MEDS: AZITHROMYCIN 500MG/SOD CHL 0.9% 250ML BAG IV SCH ×2 (00:08→21:14)
[2018-06-22] MEDS: HYDROCODONE/APAP 5MG-325MG TAB PO PRN ×3 (02:37→18:48)
[2018-06-22 03:06] LABS: CREATINE KINASE 8 IU/L (30-200)
[2018-06-22 06:07] LABS: CREATINE KINASE < 7 IU/L (30-200)
[2018-06-22] MEDS: ALBUTEROL/IPRATROPIUM 3 ML NEB NEB SCH ×3 (07:15→19:44)
[2018-06-22 07:37] LABS: ALANINE AMINOTRANSFERASE 57 IU/L (0-55); ALBUMIN 1.5 g/dL (3.5-5.0); ALBUMIN/GLOBULIN RATIO 0.6 (0.8-2.0); ALKALINE PHOSPHATASE 675 IU/L (40-150); ANION GAP 11.3 mmol/L (8-16); BLOOD UREA NITROGEN 13 mg/dL (7-26); BUN/CREATININE RATIO 14 (6-25); CALCIUM 7.3 mg/dL (8.4-10.2); CARBON DIOXIDE 21 mmol/L (22-29); CHLORIDE 110 mmol/L (98-107); CREATININE, SERUM 0.92 mg/dL (0.72-1.25); EST GLOMERULAR FILTRATION RATE > 60 ML/MIN (60-); GLUCOSE 78 mg/dL (74-118); POTASSIUM 3.3 mmol/L (3.5-5.1); SODIUM 139 mmol/L (136-145)
[2018-06-22] MEDS ORDERED: ZOLPIDEM TARTRATE 10 MG TAB PO PRN (08:15)
[2018-06-22] MEDS ORDERED: ACETAMINOPHEN 325 MG TAB PO PRN (08:30)
[2018-06-22] MEDS ORDERED: HYDRALAZINE HCL 20 MG/ML VIAL IV PRN (08:30)
--- NOTE | 2018-06-22 08:54 | NUR ---
Notified Bree Lindsey NP earlier that pt meets inpatient status, if she agrees.
[2018-06-22] MEDS ORDERED: PANTOPRAZOLE SODIUM 40 MG SUSPDR.PKT PO SCH (09:00)
[2018-06-22] MEDS: DESCOVY PO SCH (09:00)
[2018-06-22] MEDS ORDERED: POTASSIUM CHLORIDE 20 MEQ TAB CR PO ONE (09:00)
--- NOTE | 2018-06-22 09:04 | Diagnostic Imaging Report ---
CT CHEST WITHOUT CONTRAST HISTORY: Dyspnea, cough, immunosuppression COMPARISON: Chest radiograph June 21, 2017. Images from CT of the chest oct 23 2012. TECHNIQUE: CT scan of the chest WITHOUT intravenous contrast, using standard protocol. The chest was scanned utilizing a multidetector helical scanner from the apex to the level of the adrenal glands. Coronal and sagittal reformats are provided. IV CONTRAST: None, which limits evaluation of the vascular structures, mediastinum and soft tissues. RADIATION DOSE: Total DLP: 390.33 mGy*cm Dose modulation, iterative reconstruction, and/or weight based adjustment of the mA/kV was utilized to reduce the radiation dose to as low as reasonably achievable. COMPLICATIONS: None FINDINGS: Lines/tubes: None. Lungs and Airways: Subtle biapical pleural-parenchymal scarring. Subtle patchy anterior upper lobe interstitial and airspace opacities. Diffuse bronchial wall thickening. Peripheral left basilar opacity abutting the pleura, more within the lingula than the lower lobe, there was an opacity in this region on the comparison along with multiple others. Considerations include scarring or acute infection, but underlying pathology could be obscured. Pleura: The pleural spaces are clear. Heart and mediastinum: The thyroid gland is normal. The heart and pericardium are within normal limits. Abdomen: Limited nonenhanced views of the upper abdomen. The visualized portions of the liver appears enlarged and diffusely low attenuation. A small sliding hiatal hernia. Lymph nodes: No pathologically enlarged lymph node identified. Vessels: Scattered atherosclerotic vascular calcifications, including the coronary arteries. Bones: Diffusely decreased mineralization of the osseous structures limits bone detail. Minimal to mild multilevel degenerative disc changes. Soft tissues: Otherwise, unremarkable. IMPRESSION: 1. Findings which could be seen in setting of an atypical infection. 2. Recommend a follow-up CT of the chest without contrast in 3 months to assess for resolution versus stability of the left basilar pleural-based opacity, which may reflect scarring. 3. Coronary atherosclerosis. Signed by: Dr. Timo Hennessy D.O., M.M.M. on 06/22/2018 9:01 AM
[2018-06-22] MEDS: GUAIFENESIN 600MG/DEXTROMETHORPHAN 30MG TABSR PO SCH ×2 (09:48→17:00)
[2018-06-22] MEDS: OYST-CAL-D 500MG TABLET PO SCH ×2 (09:48→18:48)
--- NOTE | 2018-06-22 10:08 | Consultation ---
DATE OF CONSULTATION: June 22, 2018 PULMONARY/CRITICAL CARE CONSULTATION REFERRING PHYSICIAN: Dr. Odell. CHIEF COMPLAINT: Cough, congestion, and dyspnea. HISTORY OF PRESENT ILLNESS: The patient is a 47-year-old man with a history of HIV. He takes antiretroviral medications through the [facility] on a regular basis. He did have an episode of pneumocystis some time in the last couple of years. He also had a history of Mycobacterium avium infection. He also has lymphoma. He received chemotherapy 3 years ago. He recently had a recurrence with ascites and abdominal swelling. He was evaluated at [facility] and a stem cell transplant was recommended. He was subsequently referred back to [facility] for this. He now complains of dyspnea and cough for several days to a week. He feels hot, but does not report any fevers. He has some shortness of breath. He does not complain of chest pain. He has no abdominal pain, nausea, or vomiting. He does have some abdominal swelling. PAST SURGICAL HISTORY 1. Status post lymph node biopsy abdomen 2 months ago suggestive of recurrent lymphoma. 2. Peritoneal drain in place for recurrent ascites. PAST MEDICAL HISTORY 1. HIV. 2. Lymphoma. 3. History of pneumocystis. 4. History of Mycobacterium avium infection. SOCIAL HISTORY: The patient is not an active smoker or drinker. FAMILY HISTORY: Noncontributory. ALLERGIES: NO KNOWN DRUG ALLERGIES. REVIEW OF SYSTEMS: He has no headache or fevers. He does feel hot at times. He has no neck pain. He has no throat pain. He has no lymphatic examination. Cardiac exam reveals regular rate and rhythm with a normal S1 and S2. There are no murmurs or rubs. Auscultation of lungs reveals rhonchorous breath sounds bilaterally. There is no wheezing. The abdomen is soft. There is some distention and ascites. There is a peritoneal drain in place. He does not have any leg swelling. He has no focal neurological complaints. PHYSICAL EXAMINATION VITAL SIGNS: Blood pressure is 97/59, the pulse is 112, and the temperature is 98.8. HEENT: Shows no facial swelling or erythema. Nasal mucosa is normal. Oropharynx is normal. LYMPHATIC: Shows no submandibular, cervical, or supraclavicular adenopathy. CARDIAC: Regular rate and rhythm with normal S1 and S2. PULMONARY: Auscultation of lungs reveals decreased breath sounds at the bases. There is no wheezing. ABDOMEN: Distended. There is ascites. EXTREMITIES: Leg exam shows no leg edema. NEUROLOGIC: Shows no focal abnormalities. LABORATORY DATA: The white blood cell count is 5, hemoglobin is 9.4, and platelet count is 232. The potassium is 3.3 and the bicarbonate is 21. Other electrolytes are within normal limits. Albumin is 1.5. RADIOGRAPHIC DATA: Chest x-ray shows no active disease. IMPRESSION 1. Atypical pneumonia, possibly secondary to pneumocystis. 2. Recurrent ascites and abdominal lymphoma. 3. Human immunodeficiency virus with low CD4 count reported as 120. 4. Lymphoma. 5. Moderate protein-calorie malnutrition. 6. Hypokalemia. PLAN 1. The patient should be started on Bactrim 2 p.o. t.i.d. along with coverage for a community-acquired pneumonia and spontaneous bacterial peritonitis. 2. CT scan of the chest without contrast. 3. Arrange for bronchoscopy. 4. Patient will need further drainage of ascitic fluid through his catheter. 5. Continue home antiretroviral therapy. 6. Pain control. 7. Nutrition consultation. Job#: [id number] DERIC
[2018-06-22] MEDS ORDERED: GUAIFENESIN 600MG/DEXTROMETHORPHAN 30MG TABSR PO SCH (12:00)
[2018-06-22] MEDS: TRIMETHOPRIM/SULFAMETHOXAZOLE 160-800 MG TAB PO SCH ×2 (13:18→20:33)
--- NOTE | 2018-06-22 13:31 | NUR ---
SOCIAL WORK INITIAL ASSESSMENT Drafter Electromechanical to bedside to discuss plan of care with patient/family. CM/SW role and care transitions discussed. Anticipated discharge plan discussed along with duration of care. CM/SW discussed patients right to make decisions in care. CM/SW work hours given. Patient lives: IN OWN HOUSE WITH MOTHER Admit/Transfer: VIA ED FROM HOME POA/Emergency contact: MOTHER IS ASHLEY ON FILE Current/Previous Home Health: STATES UNHAPPY WITH ONE HE HAS THAT WAS SET UP BY KARMA PERDOMO, WOULD LIKE TO CHANGE BUT DOES NOT REMEMBER NAME OF COMPANY. WILL SCHECK WITH MOTHER TO FIND OUT COMPANY NAME TO SEE IF WE CAN GET IT CHANGED PCP/Follow-up Care: [facility] Current/Previous DME: [employer] Other Services: NONE Employment Status: DISABLED Areas of Concerns: NONE Referral Needs: NONE Education Needs: NONE IMM/LONG given and signed (if applicable): NA Goal for discharge:RETURN HOME CM/SW left business card at the bedside with contact information. Name and number was also written on the patients whiteboard. Patient verbalized understanding of discussion. CM will follow-up with ongoing discharge and transition of care needs.
[2018-06-22] MEDS: MORPHINE SULFATE INJ 4 MG/ML INJ 1ML IV PRN ×2 (13:32→20:10)
--- NOTE | 2018-06-22 17:00 | NUR ---
Spoke with Dr. King to report positive blood culture result and received orders to start vancomycin 1g q12h.
--- NOTE | 2018-06-22 17:31 | Consultation ---
DATE OF CONSULTATION: June 22, 2018 REASON FOR CONSULTATION: HIV and pneumonia. HISTORY OF PRESENT ILLNESS: This patient is a 47-year-old male with history of HIV. Patient taking antiretroviral medication from [facility]. He is telling me he has history of PCP, also has CD4 cell count of like around 120. He has history of mycobacterium infection, history of lymphoma. He is coming with fever and chills. He has been sick for 2 days with cough and fever and chills. Patient came to the emergency room where he was evaluated and being admitted. I have discussed the case earlier with Dr. Horacio Sherwood. PAST MEDICAL HISTORY: HIV, AIDS, lymphoma with lymph node biopsy of the abdomen 2 months ago, probably recurrent. He also had peritoneal drain in place for recurrent ascites. He has HIV, lymphoma, AIDS, pneumocystis carinii infection, and mycobacterium avium infection. SOCIAL HISTORY: There is no smoking, drug abuse, or alcohol abuse. LABORATORY DATA: White count 5.16, hemoglobin 9.4, his platelets 232 with sodium 139, potassium 3.3, creatinine of 0.92, AST 39, ALT 57. He had a chest CT which showed patchy infiltrate in the upper lobe. IMPRESSION: Pneumonia, while this could be bacteria, I am concerned about atypical infection as patient has history of lymphoma and acquired immunodeficiency syndrome. RECOMMENDATION: Do BAL and check for AFB, PCP, and also biopsy if possible. In the meantime, put him on Bactrim DS 2 p.o. q.8 hours. Obtain blood cultures, urine cultures. Agree with azithromycin. Agree with Rocephin. Continue his antiretroviral medications. Obtain CD4 cell count, and we will follow with you. Job#: [id number] LPA
[2018-06-22] MEDS ORDERED: VANCOMYCIN 1GM/NS 250 ML 250 ML IV SCH (18:45)
[2018-06-22] MEDS: CEFTRIAXONE SOD 1 GRAM/0.9% SOD CHL 50ML BAG IV SCH (18:48)
--- NOTE | 2018-06-22 19:20 | NUR ---
PATIENT RECEIVED. PATIENT RESTING IN BED, AAOX3. RESP EVEN AND UNLABORED. PATIENT C/O ABDOMINAL PAIN. WILL MEDICATED PER AUG. DISTENDED ABDOMINAL NOTED, RIGHT ABD DRAINAGE NOTED. TELE IN PLACE. FAMILY AT BED SIDE. CALL LIGHT WITHIN REACH. INSTRUCT TO CALL FOR ASSISTANCE. BED LOW/LOCKED. CONTINUE TO MONITOR CLOSELY
[2018-06-22] MEDS: ONDANSETRON HCL INJ 2MG/ML 2ML 2 MG/ML VIAL IV PRN (20:10)
[2018-06-22] MEDS: SODIUM CHLORIDE 0.9% 1000ML 1,000 ML IV SCH ×2 (20:33→20:34)
[2018-06-23] VITALS (8 sets, daily range): BP systolic 91–107; BP diastolic 50–63
[2018-06-23] MEDS: HYDROCODONE/APAP 5MG-325MG TAB PO PRN ×4 (00:50→19:56)
[2018-06-23] MEDS: ALBUTEROL/IPRATROPIUM 3 ML NEB NEB SCH ×4 (01:25→19:33)
[2018-06-23] MEDS ORDERED: SODIUM CHLORIDE 0.9% 1000ML 1,000 ML ONE (03:22)
[2018-06-23 04:45] LABS: BASOPHILS % 0.4 % (0.0-1.0); EOSINOPHILS # (AUTO) 0.1 (0.0-0.4); EOSINOPHILS % 0.9 % (0.0-6.0); HEMATOCRIT 26.9 % (38.2-49.6); HEMOGLOBIN 8.9 g/dL (14.0-18.0); LYMPHOCYTES # (AUTO) 1.7 (1.0-3.2); LYMPHOCYTES % 29.7 % (18.0-39.1); MEAN CORPUSCULAR HEMOGLOBIN 29.9 pg (28-32); MEAN CORPUSCULAR HGB CONC 33.1 g/dL (31-35); MEAN CORPUSCULAR VOLUME 90.3 fL (81-99); MONOCYTES # (AUTO) 0.4 (0.2-0.8); MONOCYTES % 6.6 % (4.4-11.3); NEUTROPHILS # (AUTO) 3.3 (2.1-6.9); NEUTROPHILS % 59.7 % (38.7-80.0); PLATELET COUNT 218 x10e3/uL (140-360); RED BLOOD COUNT 2.98 x10e6/uL (4.3-5.7); RED CELL DISTRIBUTION WIDTH 16.3 % (11.7-14.4)
[2018-06-23 05:08] LABS: ALANINE AMINOTRANSFERASE 52 IU/L (0-55); ALBUMIN 1.5 g/dL (3.5-5.0); ALBUMIN/GLOBULIN RATIO 0.6 (0.8-2.0); ALKALINE PHOSPHATASE 655 IU/L (40-150); ANION GAP 10.5 mmol/L (8-16); BLOOD UREA NITROGEN 12 mg/dL (7-26); BUN/CREATININE RATIO 13 (6-25); CALCIUM 7.1 mg/dL (8.4-10.2); CARBON DIOXIDE 20 mmol/L (22-29); CHLORIDE 106 mmol/L (98-107); CREATININE, SERUM 0.92 mg/dL (0.72-1.25); EST GLOMERULAR FILTRATION RATE > 60 ML/MIN (60-); GLUCOSE 82 mg/dL (74-118); POTASSIUM 3.5 mmol/L (3.5-5.1); SODIUM 133 mmol/L (136-145)
[2018-06-23 05:11] LABS: ALANINE AMINOTRANSFERASE 53 IU/L (0-55); ALBUMIN 1.5 g/dL (3.5-5.0); ALKALINE PHOSPHATASE 665 IU/L (40-150); ANION GAP 10.5 mmol/L (8-16); BILIRUBIN,DIRECT 0.2 mg/dL (0.0-0.5); BLOOD UREA NITROGEN 13 mg/dL (7-26); BUN/CREATININE RATIO 14 (6-25); CARBON DIOXIDE 21 mmol/L (22-29); CHLORIDE 105 mmol/L (98-107); CREATININE, SERUM 0.95 mg/dL (0.72-1.25); EST GLOMERULAR FILTRATION RATE > 60 ML/MIN (60-); GLUCOSE 83 mg/dL (74-118); MAGNESIUM 1.7 MG/DL (1.3-2.1); POTASSIUM 3.5 mmol/L (3.5-5.1); SODIUM 133 mmol/L (136-145)
[2018-06-23 05:13] LABS: CALCIUM 6.9 mg/dL (8.4-10.2)
[2018-06-23] MEDS: TRIMETHOPRIM/SULFAMETHOXAZOLE 160-800 MG TAB PO SCH ×3 (05:57→22:07)
[2018-06-23] MEDS: MORPHINE SULFATE INJ 4 MG/ML INJ 1ML IV PRN ×3 (05:57→18:00)
[2018-06-23] MEDS: ONDANSETRON HCL INJ 2MG/ML 2ML 2 MG/ML VIAL IV PRN (05:57)
--- NOTE | 2018-06-23 06:05 | NUR ---
LOW BREEZY 6.9. NOTIFIED DR HAYWARD. NEW ORDER RECEIVED
[2018-06-23] MEDS ORDERED: POTASSIUM CHLORIDE 20 MEQ TAB CR PO STA (06:37)
[2018-06-23] MEDS ORDERED: FUROSEMIDE INJ 10 MG/ML 4 ML VIAL IV ONE ×2 (06:45→10:00)
[2018-06-23 08:16] LABS: BAND NEUTROPHILS % (MANUAL) 6 %; EOSINOPHILS % (MANUAL) 2 % (0-7); LYMPHOCYTES % (MANUAL) 24 % (19-48); MONOCYTES % (MANUAL) 9 % (3.4-9.0); NEUTROPHILS % (MANUAL) 59 % (40-74)
[2018-06-23 08:17] LABS: PLATELET ESTIMATE ADEQUATE; PLATELET MORPHOLOGY COMMENT NORMAL; RBC MORPHOLOGY COMMENT NORMAL
[2018-06-23] MEDS ORDERED: CALCIUM GLUCONATE 10% INJ 9.3 MEQ in SODIUM CHLORIDE 0.9% 100 ML 100 ML IV ONE (08:30)
[2018-06-23] MEDS: DESCOVY PO SCH (09:00)
[2018-06-23] MEDS: GUAIFENESIN 600MG/DEXTROMETHORPHAN 30MG TABSR PO SCH ×2 (09:00→17:00)
[2018-06-23] MEDS: OYST-CAL-D 500MG TABLET PO SCH ×2 (09:30→17:01)
[2018-06-23] MEDS ORDERED: POTASSIUM CHLORIDE 20 MEQ TAB CR PO ONE (10:00)
[2018-06-23] MEDS: PANTOPRAZOLE SOD 40 MG TABEC PO SCH (10:09)
[2018-06-23] MEDS: VANCOMYCIN 1GM/NS 250 ML 250 ML IV SCH ×2 (12:14→22:07)
[2018-06-23] MEDS: CEFTRIAXONE SOD 1 GRAM/0.9% SOD CHL 50ML BAG IV SCH (17:01)
[2018-06-23] MEDS: AZITHROMYCIN 500MG/SOD CHL 0.9% 250ML BAG IV SCH (18:17)
--- NOTE | 2018-06-23 19:28 | NUR ---
Patient received lying in bed. AAO x 3. Patient had no complaints of pain. No signs of respiratory distress. Bed locked and in lowest position. Bed rails up x 2. Patient instructed to call for assistance when needed. Call light within reach.
--- NOTE | 2018-06-23 20:45 | NUR ---
Received call from lab for positive blood culture ---gram positive cocci in clusters . Bree Lindsey (CEZAR) notified. New orders received.
--- NOTE | 2018-06-23 20:54 | NUR ---
Dr. King notified of positive blood culture---gram positive cocci in clusters. No new order received.
--- NOTE | 2018-06-23 22:00 | NUR ---
Patient's IV on right arm infiltrated. Old IV removed with tip intact. New IV inserted in right upper arm 22G. Patient tolerated well.
--- NOTE | 2018-06-23 22:55 | NUR ---
Patient instructed about NPO status after midnight. Patient verbalized understanding.
[2018-06-24] VITALS (7 sets, daily range): BP systolic 88–110; BP diastolic 52–64
[2018-06-24] MEDS: ALBUTEROL/IPRATROPIUM 3 ML NEB NEB SCH ×4 (01:00→19:00)
[2018-06-24] MEDS: HYDROCODONE/APAP 5MG-325MG TAB PO PRN ×2 (02:49→16:32)
--- NOTE | 2018-06-24 02:50 | NUR ---
Call received from Telemetry department to replace leads and change battery. Attempt to re-adjust leads/battery proved futile as patient stated his sleep was being disturbed.
[2018-06-24 04:48] LABS: IRON 31 ug/dL (65-175); TRANSFERRIN < 70 mg/dL (174-364)
[2018-06-24] MEDS: TRIMETHOPRIM/SULFAMETHOXAZOLE 160-800 MG TAB PO SCH ×3 (05:05→22:07)
[2018-06-24 05:09] LABS: FERRITIN 228.49 ng/mL (21.81-274.66)
[2018-06-24 05:22] LABS: FOLATE 5.5 ng/mL (7.0-15.4)
[2018-06-24 07:28] LABS: BASOPHILS % 0.5 % (0.0-1.0); EOSINOPHILS # (AUTO) 0.2 (0.0-0.4); EOSINOPHILS % 2.6 % (0.0-6.0); HEMOGLOBIN 8.7 g/dL (14.0-18.0); LYMPHOCYTES # (AUTO) 1.2 (1.0-3.2); LYMPHOCYTES % 19.6 % (18.0-39.1); MEAN CORPUSCULAR HEMOGLOBIN 30.5 pg (28-32); MEAN CORPUSCULAR HGB CONC 34.8 g/dL (31-35); MEAN CORPUSCULAR VOLUME 87.7 fL (81-99); MONOCYTES # (AUTO) 0.3 (0.2-0.8); MONOCYTES % 5.5 % (4.4-11.3); NEUTROPHILS # (AUTO) 4.3 (2.1-6.9); NEUTROPHILS % 70.2 % (38.7-80.0); PLATELET COUNT 268 x10e3/uL (140-360); RED BLOOD COUNT 2.85 x10e6/uL (4.3-5.7); RED CELL DISTRIBUTION WIDTH 16.4 % (11.7-14.4)
[2018-06-24] MEDS: PANTOPRAZOLE SOD 40 MG TABEC PO SCH (07:30)
[2018-06-24] MEDS ORDERED: HYDROMORPHONE 2MG/ML 2 MG/ML ML IV PRN (07:30)
[2018-06-24 07:47] LABS: ANION GAP 13.1 mmol/L (8-16); BLOOD UREA NITROGEN 16 mg/dL (7-26); BUN/CREATININE RATIO 21 (6-25); CALCIUM 7.2 mg/dL (8.4-10.2); CARBON DIOXIDE 16 mmol/L (22-29); CHLORIDE 107 mmol/L (98-107); CREATININE, SERUM 0.75 mg/dL (0.72-1.25); EST GLOMERULAR FILTRATION RATE > 60 ML/MIN (60-); GLUCOSE 84 mg/dL (74-118); MAGNESIUM 1.7 MG/DL (1.3-2.1); POTASSIUM 4.1 mmol/L (3.5-5.1); SODIUM 132 mmol/L (136-145)
[2018-06-24] MEDS: GUAIFENESIN 600MG/DEXTROMETHORPHAN 30MG TABSR PO SCH ×2 (09:00→16:41)
[2018-06-24] MEDS: FOLIC ACID 1 MG TAB PO SCH (09:00)
[2018-06-24] MEDS: DESCOVY PO SCH (09:00)
[2018-06-24] MEDS: OYST-CAL-D 500MG TABLET PO SCH ×2 (09:00→16:41)
[2018-06-24] MEDS: MORPHINE SULFATE INJ 4 MG/ML INJ 1ML IV PRN (09:20)
[2018-06-24] MEDS: VANCOMYCIN 1GM/NS 250 ML 250 ML IV SCH (10:00)
--- NOTE | 2018-06-24 10:05 | NUR ---
paged Dr King regarding Vanco trough 27.0, awaiting call back
--- NOTE | 2018-06-24 10:10 | NUR ---
patient resting in bed, refused to check Tele leads and battery, he said " its bothering him much". Not in any distress. keep monitoring
--- NOTE | 2018-06-24 13:04 | NUR ---
reinforced dressing on the right side abdomen, no drainage noted, sutures remains intact
[2018-06-24] MEDS ORDERED: EPINEPHRINE HCL 1:1000 1ML 1 MG/ML AMP ONE (13:36)
[2018-06-24] MEDS ORDERED: LIDOCAINE HCL 4% 50 ML BTL ONE (13:36)
--- NOTE | 2018-06-24 14:23 | NUR ---
Dr King here for rounds said to Hold tonight dose too, repeat Vanco trough tomorrow am
--- NOTE | 2018-06-24 15:15 | Operative Report ---
DATE OF PROCEDURE: June 24, 2018 CHIEF COMPLAINT: Bilateral infiltrates in an HIV patient. PROCEDURE: Bronchoscopy with bronchoalveolar lavage. CONSENT: Consent was obtained from the patient. ANESTHESIA: Anesthesia service provided MAC sedation. DETAILS OF PROCEDURE: The patient was placed in the supine position. The anesthesia service used a laryngeal mask airway to secure the airway. The scope was then advanced through the LMA. The glottis appeared normal. The tracheal mucosa was normal. The ezekiel was normal. The left tracheobronchial tree was examined. It was normal to the subsegmental level. There were no endobronchial lesions. The left upper lobe, lingula and left lower lobe were all within normal limits. Washings were obtained from the left lung. The scope was repositioned into the right tracheobronchial tree. The right upper lobe, right middle lobe and right lower lobe were all normal to the subsegmental level. There were no endobronchial lesions. The scope was wedged into the lateral basal subsegment of the right lower lobe. A bronchoalveolar lavage was performed. Brushings were also obtained from the right upper lobe as well as washings. COMPLICATIONS: None. ESTIMATED BLOOD LOSS: None. Job#: [id number]
--- NOTE | 2018-06-24 15:16 | NUR ---
patient back to room from bronchoscopy, Alert with no distress, On O2 2L NC, Denies any pain, call light in reach
[2018-06-24 15:30] LABS: BODY FLUID APPEARANCE CLOUDY; BODY FLUID COLOR COLORLESS; BODY FLUID TYPE PLEURAL
[2018-06-24 16:08] LABS: RBC,BODY FLUID 159 cells/uL; WBC,BODY FLUID 28 cells/uL
[2018-06-24 17:05] LABS: LYMPHOCYTES,BODY FLUID 11 %; MONO/MACROPHG,BODY FLUID 23 %; NEUTROPHILS,BODY FLUID 57 %; OTHER CELLS,BODY FLUID 9 %
[2018-06-24] MEDS ORDERED: FENTANYL CITRATE/PF 100MCG/2 ML INJ ONE (17:15)
[2018-06-24] MEDS ORDERED: MIDAZOLAM HCL 2 MG/2 ML VIAL ONE (17:15)
[2018-06-24] MEDS: CEFTRIAXONE SOD 1 GRAM/0.9% SOD CHL 50ML BAG IV SCH (17:16)
[2018-06-24] MEDS: AZITHROMYCIN 500MG/SOD CHL 0.9% 250ML BAG IV SCH (17:48)
--- NOTE | 2018-06-24 22:00 | NUR ---
BP RECHECKED 108/53MMHG. PATIENT IS ASYMPTOMATIC.
[2018-06-24] MEDS: HYDROMORPHONE 2MG/ML 2 MG/ML ML IV PRN (22:07)
[2018-06-25] VITALS (7 sets, daily range): BP systolic 90–122; BP diastolic 50–60
[2018-06-25] MEDS: ALBUTEROL/IPRATROPIUM 3 ML NEB NEB SCH ×4 (01:00→19:30)
--- NOTE | 2018-06-25 01:20 | NUR ---
BP RECHECKED= 122/60 MMHG.
[2018-06-25 03:15] LABS: BASOPHILS # (AUTO) 0.1 (0.0-0.1); BASOPHILS % 0.6 % (0.0-1.0); EOSINOPHILS # (AUTO) 0.2 (0.0-0.4); EOSINOPHILS % 2.2 % (0.0-6.0); HEMATOCRIT 29.3 % (38.2-49.6); HEMOGLOBIN 9.3 g/dL (14.0-18.0); LYMPHOCYTES % 24.5 % (18.0-39.1); MEAN CORPUSCULAR HEMOGLOBIN 29.2 pg (28-32); MEAN CORPUSCULAR HGB CONC 31.7 g/dL (31-35); MONOCYTES # (AUTO) 0.4 (0.2-0.8); MONOCYTES % 4.8 % (4.4-11.3); NEUTROPHILS # (AUTO) 5.5 (2.1-6.9); NEUTROPHILS % 66.1 % (38.7-80.0); PLATELET COUNT 246 x10e3/uL (140-360); RED BLOOD COUNT 3.19 x10e6/uL (4.3-5.7); RED CELL DISTRIBUTION WIDTH 16.2 % (11.7-14.4)
[2018-06-25] MEDS: HYDROCODONE/APAP 5MG-325MG TAB PO PRN ×3 (03:16→17:53)
[2018-06-25 03:28] LABS: MEAN CORPUSCULAR VOLUME 91.8 fL (81-99)
[2018-06-25 03:42] LABS: ANION GAP 10.2 mmol/L (8-16); BLOOD UREA NITROGEN 15 mg/dL (7-26); BUN/CREATININE RATIO 17 (6-25); CARBON DIOXIDE 20 mmol/L (22-29); CHLORIDE 103 mmol/L (98-107); CREATININE, SERUM 0.87 mg/dL (0.72-1.25); EST GLOMERULAR FILTRATION RATE > 60 ML/MIN (60-); GLUCOSE 69 mg/dL (74-118); MAGNESIUM 1.6 MG/DL (1.3-2.1); POTASSIUM 4.2 mmol/L (3.5-5.1); SODIUM 129 mmol/L (136-145)
[2018-06-25] MEDS: TRIMETHOPRIM/SULFAMETHOXAZOLE 160-800 MG TAB PO SCH ×3 (05:27→22:04)
--- NOTE | 2018-06-25 07:13 | NUR ---
pt alert resp even and in labored at this time, pt lying supine, and able to make needs known, call light in reach.
[2018-06-25] MEDS ORDERED: FUROSEMIDE INJ 10 MG/ML 4 ML VIAL IV ONE (07:15)
[2018-06-25] MEDS ORDERED: SODIUM CHLORIDE 1 GM TAB PO SCH ×2 (07:15→07:45)
[2018-06-25] MEDS ORDERED: CALCIUM GLUCONATE 10% INJ 9.3 MEQ in SODIUM CHLORIDE 0.9% 100 ML 100 ML IV ONE (07:15)
[2018-06-25] MEDS: PANTOPRAZOLE SOD 40 MG TABEC PO SCH (07:30)
[2018-06-25] MEDS: HYDROMORPHONE 2MG/ML 2 MG/ML ML IV PRN ×3 (07:45→21:39)
--- NOTE | 2018-06-25 07:50 | NUR ---
Blood Pressure 102/65 MMHG.
[2018-06-25] MEDS: OYST-CAL-D 500MG TABLET PO SCH ×2 (09:00→17:38)
[2018-06-25] MEDS: FOLIC ACID 1 MG TAB PO SCH (09:00)
[2018-06-25] MEDS: GUAIFENESIN 600MG/DEXTROMETHORPHAN 30MG TABSR PO SCH ×2 (09:00→17:38)
[2018-06-25] MEDS: DESCOVY PO SCH (09:00)
[2018-06-25] MEDS ORDERED: SODIUM CHLORIDE 0.9% 1000ML 1,000 ML IV ONE (15:15)
--- NOTE | 2018-06-25 15:17 | NUR ---
call out to Dr. crane/ HARRIS Giron answered, pt want dilaudid0.25mg iv, his b/p at this time is 95/52, ordres to bolus pt 1 liter, and can have didlaudid 0.25 mg iv.
[2018-06-25] MEDS: CEFTRIAXONE SOD 1 GRAM/0.9% SOD CHL 50ML BAG IV SCH (17:38)
[2018-06-25] MEDS: AZITHROMYCIN 500MG/SOD CHL 0.9% 250ML BAG IV SCH (18:10)
--- NOTE | 2018-06-25 19:22 | NUR ---
report given to oncoming nurse
[2018-06-25] MEDS: ONDANSETRON HCL INJ 2MG/ML 2ML 2 MG/ML VIAL IV PRN (21:38)
[2018-06-26] VITALS (7 sets, daily range): BP systolic 95–120; BP diastolic 54–71
[2018-06-26] MEDS: ALBUTEROL/IPRATROPIUM 3 ML NEB NEB SCH ×3 (01:10→19:00)
[2018-06-26] MEDS: HYDROCODONE/APAP 5MG-325MG TAB PO PRN ×2 (01:34→08:40)
[2018-06-26] MEDS: HYDROMORPHONE 2MG/ML 2 MG/ML ML IV PRN ×4 (03:55→22:27)
[2018-06-26 04:21] LABS: BASOPHILS % 0.3 % (0.0-1.0); EOSINOPHILS # (AUTO) 0.1 (0.0-0.4); EOSINOPHILS % 2.2 % (0.0-6.0); HEMATOCRIT 25.3 % (38.2-49.6); HEMOGLOBIN 8.4 g/dL (14.0-18.0); LYMPHOCYTES # (AUTO) 1.2 (1.0-3.2); LYMPHOCYTES % 19.3 % (18.0-39.1); MEAN CORPUSCULAR HEMOGLOBIN 29.6 pg (28-32); MEAN CORPUSCULAR HGB CONC 33.2 g/dL (31-35); MEAN CORPUSCULAR VOLUME 89.1 fL (81-99); MONOCYTES # (AUTO) 0.4 (0.2-0.8); MONOCYTES % 5.7 % (4.4-11.3); NEUTROPHILS # (AUTO) 4.5 (2.1-6.9); NEUTROPHILS % 70.4 % (38.7-80.0); PLATELET COUNT 247 x10e3/uL (140-360); RED BLOOD COUNT 2.84 x10e6/uL (4.3-5.7); RED CELL DISTRIBUTION WIDTH 15.8 % (11.7-14.4)
[2018-06-26 05:05] LABS: ANION GAP 11.5 mmol/L (8-16); BLOOD UREA NITROGEN 17 mg/dL (7-26); BUN/CREATININE RATIO 18 (6-25); CARBON DIOXIDE 18 mmol/L (22-29); CHLORIDE 103 mmol/L (98-107); CREATININE, SERUM 0.96 mg/dL (0.72-1.25); EST GLOMERULAR FILTRATION RATE > 60 ML/MIN (60-); GLUCOSE 88 mg/dL (74-118); MAGNESIUM 1.6 MG/DL (1.3-2.1); POTASSIUM 3.5 mmol/L (3.5-5.1); SODIUM 129 mmol/L (136-145)
[2018-06-26 05:21] LABS: CALCIUM 6.9 mg/dL (8.4-10.2)
--- NOTE | 2018-06-26 06:35 | NUR ---
pt refused morning bactrim, would like to take it with breakfast
[2018-06-26] MEDS ORDERED: CALCIUM GLUCONATE 10% INJ 9.3 MEQ in SODIUM CHLORIDE 0.9% 100 ML 100 ML IV ONE (07:30)
[2018-06-26 07:31] LABS: ANISOCYTOSIS SLIGHT; EOSINOPHILS % (MANUAL) 1 % (0-7); HYPOCHROMASIA SLIGHT; LYMPHOCYTES % (MANUAL) 15 % (19-48); MONOCYTES % (MANUAL) 7 % (3.4-9.0); MYELOCYTES % (MANUAL) 1 % (0-0); NEUTROPHILS % (MANUAL) 71 % (40-74); PLATELET ESTIMATE ADEQUATE; POIKILOCYTOSIS SLIGHT; RBC MORPHOLOGY COMMENT NORMAL
[2018-06-26 07:32] LABS: PLATELET MORPHOLOGY COMMENT NORMAL
[2018-06-26] MEDS: FOLIC ACID 1 MG TAB PO SCH (08:38)
[2018-06-26] MEDS: PANTOPRAZOLE SOD 40 MG TABEC PO SCH (08:38)
[2018-06-26] MEDS: GUAIFENESIN 600MG/DEXTROMETHORPHAN 30MG TABSR PO SCH ×2 (08:39→16:31)
[2018-06-26] MEDS: OYST-CAL-D 500MG TABLET PO SCH ×2 (08:39→16:31)
[2018-06-26] MEDS: DESCOVY PO SCH (08:58)
[2018-06-26] MEDS: TRIMETHOPRIM/SULFAMETHOXAZOLE 160-800 MG TAB PO SCH ×2 (08:58→12:20)
[2018-06-26] MEDS: SODIUM CHLORIDE 1 GM TAB PO SCH ×2 (10:08→16:31)
[2018-06-26] MEDS ORDERED: TRIMETHOPRIM/SULFAMETHOXAZOLE 160-800 MG TAB PO SCH (12:00)
--- NOTE | 2018-06-26 16:42 | Progress Note ---
DATE: June 26, 2018 PULMONARY/CRITICAL CARE PROGRESS NOTE SUBJECTIVE: The patient has less cough and less congestion. Overall, he feels better. He had to reschedule his pain management appointment. He generally receives [place] as an outpatient for his peripheral neuropathy. OBJECTIVE: VITAL SIGNS: Are stable. HEENT: Shows no facial swelling or erythema. CARDIAC: Reveals a regular rate and rhythm with a normal S1 and S2. There are no murmurs or rubs. LUNGS: Auscultation reveals clear breath sounds bilaterally. There is no wheezing. ABDOMEN: Is soft and nontender. There is no rebound or guarding. EXTREMITIES: Show no leg edema or calf tenderness. IMPRESSION: 1. Pneumocystis pneumonia. 2. Lymphoma. 3. Human immunodeficiency virus with a reported CD4 count of 120. 4. Anemia. 5. Peripheral neuropathy. PLAN: 1. Continue Bactrim as well as vancomycin and Rocephin. 2. Taper antibiotics as culture results become available. 3. The patient will require a prescription for [place] on discharge because he missed his pain management appointment. He will follow up with his regular pain management doctor as soon as possible. 4. Patient will also need to follow up with Oncology for treatment of his lymphoma. Job#: [id number] EV MTDKey
--- NOTE | 2018-06-26 18:23 | NUR ---
PT IN BED COMFORTABLE WATCHING TV AND VISITING WITH DAUGHTER. CONTINUES ON ANTIBIOTICS AND PAIN MANAGEMENT. NO DISTRESS NOTED
[2018-06-27] VITALS (7 sets, daily range): BP systolic 94–116; BP diastolic 55–61
[2018-06-27] MEDS: HYDROCODONE/APAP 5MG-325MG TAB PO PRN ×3 (00:24→17:30)
[2018-06-27] MEDS: ALBUTEROL/IPRATROPIUM 3 ML NEB NEB SCH ×3 (01:00→19:00)
[2018-06-27] MEDS: HYDROMORPHONE 2MG/ML 2 MG/ML ML IV PRN ×5 (04:32→22:42)
[2018-06-27 04:57] LABS: BASOPHILS # (AUTO) 0.1 (0.0-0.1); BASOPHILS % 0.9 % (0.0-1.0); EOSINOPHILS # (AUTO) 0.1 (0.0-0.4); EOSINOPHILS % 2.6 % (0.0-6.0); HEMATOCRIT 26.8 % (38.2-49.6); HEMOGLOBIN 8.6 g/dL (14.0-18.0); LYMPHOCYTES # (AUTO) 1.3 (1.0-3.2); LYMPHOCYTES % 24.2 % (18.0-39.1); MEAN CORPUSCULAR HEMOGLOBIN 29.2 pg (28-32); MEAN CORPUSCULAR HGB CONC 32.1 g/dL (31-35); MEAN CORPUSCULAR VOLUME 90.8 fL (81-99); MONOCYTES # (AUTO) 0.4 (0.2-0.8); MONOCYTES % 6.8 % (4.4-11.3); NEUTROPHILS # (AUTO) 3.5 (2.1-6.9); NEUTROPHILS % 63.5 % (38.7-80.0); PLATELET COUNT 291 x10e3/uL (140-360); RED BLOOD COUNT 2.95 x10e6/uL (4.3-5.7); RED CELL DISTRIBUTION WIDTH 15.9 % (11.7-14.4)
[2018-06-27 05:24] LABS: ANION GAP 8.8 mmol/L (8-16); BLOOD UREA NITROGEN 17 mg/dL (7-26); BUN/CREATININE RATIO 17 (6-25); CALCIUM 7.3 mg/dL (8.4-10.2); CARBON DIOXIDE 20 mmol/L (22-29); CHLORIDE 109 mmol/L (98-107); CREATININE, SERUM 0.98 mg/dL (0.72-1.25); EST GLOMERULAR FILTRATION RATE > 60 ML/MIN (60-); GLUCOSE 76 mg/dL (74-118); MAGNESIUM 1.6 MG/DL (1.3-2.1); POTASSIUM 3.8 mmol/L (3.5-5.1); SODIUM 134 mmol/L (136-145)
[2018-06-27] MEDS ORDERED: POTASSIUM CHLORIDE 20 MEQ TAB CR PO STA (07:18)
[2018-06-27] MEDS ORDERED: FUROSEMIDE INJ 10 MG/ML 4 ML VIAL IV ONE (07:30)
[2018-06-27] MEDS: DESCOVY PO SCH (08:45)
[2018-06-27] MEDS: GUAIFENESIN 600MG/DEXTROMETHORPHAN 30MG TABSR PO SCH ×2 (08:45→17:51)
[2018-06-27] MEDS: PANTOPRAZOLE SOD 40 MG TABEC PO SCH (08:45)
[2018-06-27] MEDS: FOLIC ACID 1 MG TAB PO SCH (08:45)
[2018-06-27] MEDS: OYST-CAL-D 500MG TABLET PO SCH ×2 (08:45→17:51)
--- NOTE | 2018-06-27 16:23 | NUR ---
CM SPOKE TO PATIENT AT BEDSIDE REGARDING PLAN OF CARE AND DISCHARGE PLAN. PATIENT INFORMED OF IMPORTANCE OF DEEP BREATHING AND AMBULATING TO PREVENT ANY REOCCURRENCE OF PNA. PATIENT EDUCATED ON PNA AND FLU VACCINE AND TIMES TO GET THE VACCINE. PATIENT VERBALLY AGREED AND WILL FOLLOW UP WITH RN. PATIENT HIGHLY ENCOURAGED TO MAKE APPOINTMENT WITH PCP PRIOR TO DISCHARGE. CM TO FOLLOW UP PRIOR TO D/C.
--- NOTE | 2018-06-27 20:29 | NUR ---
RECEIVED PT IN BED AOX3 .RESPIRATIONS ARE EVEN AND UNLABORED .PT HAS PERINEAL DRAINAGE RT SIDE AND DRAINAGE MODERATE AMOUNT OF FLUID .FAMILY AT THE BEDSIDE AND CALL LIGHT WITH IN REACH .CALLED HARRIS MANNING FOR VANCOMYCIN HOLD .HARRIS MANNING TOLD TO CONTINUE THE VANCOMYCIN .CONTINUE TO MONITOR
[2018-06-27] MEDS: VANCOMYCIN 1GM/NS 250 ML 250 ML IV SCH (20:30)
[2018-06-28] VITALS: BP 117/61
[2018-06-28] MEDS: ALBUTEROL/IPRATROPIUM 3 ML NEB NEB SCH ×2 (01:00→06:23)
[2018-06-28 04:00] VITALS: BP 108/66
[2018-06-28 04:36] LABS: BASOPHILS # (AUTO) 0.1 (0.0-0.1); BASOPHILS % 1.1 % (0.0-1.0); EOSINOPHILS # (AUTO) 0.1 (0.0-0.4); EOSINOPHILS % 1.6 % (0.0-6.0); HEMATOCRIT 27.9 % (38.2-49.6); HEMOGLOBIN 9.6 g/dL (14.0-18.0); LYMPHOCYTES # (AUTO) 1.9 (1.0-3.2); LYMPHOCYTES % 30.3 % (18.0-39.1); MEAN CORPUSCULAR HEMOGLOBIN 30.4 pg (28-32); MEAN CORPUSCULAR HGB CONC 34.4 g/dL (31-35); MEAN CORPUSCULAR VOLUME 88.3 fL (81-99); MONOCYTES # (AUTO) 0.4 (0.2-0.8); MONOCYTES % 6.3 % (4.4-11.3); NEUTROPHILS # (AUTO) 3.7 (2.1-6.9); PLATELET COUNT 242 x10e3/uL (140-360); RED BLOOD COUNT 3.16 x10e6/uL (4.3-5.7); RED CELL DISTRIBUTION WIDTH 15.9 % (11.7-14.4)
[2018-06-28] MEDS: HYDROCODONE/APAP 5MG-325MG TAB PO PRN (04:41)
[2018-06-28 04:53] LABS: BLOOD UREA NITROGEN 15 mg/dL (7-26); BUN/CREATININE RATIO 14 (6-25); CALCIUM 7.5 mg/dL (8.4-10.2); CARBON DIOXIDE 20 mmol/L (22-29); CHLORIDE 104 mmol/L (98-107); CREATININE, SERUM 1.06 mg/dL (0.72-1.25); EST GLOMERULAR FILTRATION RATE > 60 ML/MIN (60-); GLUCOSE 96 mg/dL (74-118); MAGNESIUM 1.5 MG/DL (1.3-2.1); SODIUM 131 mmol/L (136-145)
[2018-06-28] MEDS: HYDROMORPHONE 2MG/ML 2 MG/ML ML IV PRN ×2 (06:20→11:06)
[2018-06-28 06:48] VITALS: BP 108/66
--- NOTE | 2018-06-28 07:00 | NUR ---
RCD PT AT BED PT IS ALERT AND ORIENTED PT RESTING ON BED NO SIGNS OF ANY DISTRESS NOTED IV PATENT BED LOW AND LOCKED CALL LIGHT IN REACH
--- NOTE | 2018-06-28 07:00 | NUR ---
PT WENT HOME IN SAFE CONDITION WITH HIS MOTHER
--- NOTE | 2018-06-28 07:22 | NUR ---
PT C/O PAIN AND GIVEN ORDERED PAIN MEDICATION .PT RESTING .DRAINAGE AMOUNT WAS 650 ML .REPORT GIVEN ONCOMING NURSE
[2018-06-28] MEDS: PANTOPRAZOLE SOD 40 MG TABEC PO SCH (07:30)
[2018-06-28 08:00] VITALS: BP 108/66
[2018-06-28] MEDS: VANCOMYCIN 1GM/NS 250 ML 250 ML IV SCH (08:30)
[2018-06-28 08:57] VITALS: BP 98/55
[2018-06-28] MEDS: GUAIFENESIN 600MG/DEXTROMETHORPHAN 30MG TABSR PO SCH (09:00)
[2018-06-28] MEDS: FOLIC ACID 1 MG TAB PO SCH (09:00)
[2018-06-28] MEDS: DESCOVY PO SCH (09:00)
[2018-06-28] MEDS: OYST-CAL-D 500MG TABLET PO SCH (09:00)
[2018-06-28] MEDS ORDERED: SULFAMETHOXAZO1 EAC1 PO (10:07)
[2018-06-28] MEDS ORDERED: FOLIC ACID1 MG PO (10:07)
[2018-06-28] MEDS ORDERED: Calcium Carbonate PO (10:07)
[2018-06-28] MEDS ORDERED: LEVAQUIN500 MG PO ×2 (10:07→10:52)
[2018-06-28] MEDS ORDERED: NORCO 10-325 T1 EACH PO ×2 (10:07→10:54)
[2018-06-28] MEDS ORDERED: MUCINEX DM ER1 EACH PO (10:07)
[2018-06-28] MEDS ORDERED: BACTRIM DS TAB1 EACH PO (10:52)
[2018-06-28] MEDS: TRIMETHOPRIM/SULFAMETHOXAZOLE 160-800 MG TAB PO SCH (11:07)
[2018-06-28 12:00] VITALS: BP 98/56
--- NOTE | 2018-06-28 12:59 | NUR ---
PT WENT HOME IN SAFE CONDITION WITH HIS MOTHER
--- NOTE | 2018-06-28 16:42 | Discharge Summary ---
ADMISSION DIAGNOSES 1. Community-acquired pneumonia. 2. Human immunodeficiency virus. 3. Lymphoma. 4. Anemia. 5. Hypokalemia. 6. Hypocalcemia. 7. Transaminitis. 8. Tachycardia. DISCHARGE DIAGNOSES 1. Community-acquired pneumonia. 2. Human immunodeficiency virus. 3. Lymphoma. 4. Anemia. 5. Hypokalemia. 6. Hypocalcemia. 7. Transaminitis. 8. Tachycardia. 9. Hyponatremia. 10. Folic acid deficiency. HISTORY: Patient has a history of lymphoma, HIV, Mycobacterium avium infection, pneumocystis, and placement of peritoneal drain. SURGICAL HISTORY: Patient had a rectal tumor removed and a right abdominal peritoneal drain status post paracentesis. FAMILY HISTORY: Patient's aunt had diabetes. SOCIAL HISTORY: Patient admits to quitting tobacco use 8 years ago. He denies any other alcohol, tobacco or illicit drug use. HOSPITAL COURSE: A 47-year-old male complains of shortness of breath, productive cough with white sputum and subjective chills over the last 2 days. Symptoms worse with lying flat and improved with Robitussin. Patient had a right peritoneal drain placed at [facility] due to multiple paracenteses. He drains about 700 mL a day himself at home. His PCP recently started treating him for MAC. Patient admits to 2 of his nieces being sick and says he has been around them. On admission patient was started on Zithromax, Rocephin, vancomycin, nebs, Mucinex. Patient had Pulmonary and Infectious Disease consulted. Pulmonology recommended a bronc. On admission chest x-ray showed no abnormalities. CT of the chest showed findings which could be seen in setting of an atypical infection. Recommend followup of the CT in 3 months. Per ID patient was also started on Bactrim. Patient had a bronc on June 24 which found right upper, middle and lower lobes all normal to the subsegmental level, no endobronchial lesions. The left tracheobronchial tree was normal to the subsegmental level, no lesions. Washings were taken, and preliminary results showed yeast at time of discharge. Initial blood cultures were positive for staph. Repeat blood cultures were negative. Per Infectious Disease, patient will discharge home with Bactrim Sunday/Sunday/Sunday x13 tablets and Levaquin 500 daily x10 days. He was also given a prescription for [place], Mucinex, folic acid and calcium carbonate. He will continue his HIV meds and his Protonix. He will discontinue other antibiotics. Patient will follow up with Joceline Galvez as discussed, Pulmonary and Infectious Disease in 1 to 2 weeks. He will also follow up with Primary Care in 1 to 2 weeks. Patient understands discharge instructions and agrees to plan. Vital signs stable, patient afebrile. Dictated by: Bree Lindsey NP TIFF HAYWARD MD Job#: [id number]
== END 2018-06-28 12:59 | disposition home or self-care (01) | DRG 975 ==
LOC: FSED 15:54 → ERHOLD 18:01 → MED/SURG2 20:31 → OBSVTOIN 06-22 08:25
PROVIDERS: ADMIT Internal Medicine; ATTEND Internal Medicine
PROC: 0B9F8ZX Drainage of Right Lower Lung Lobe, Via Natural or Artificial Opening Endoscopic, Diagnostic (ICD-10-PCS; principal; 2018-06-24 14:00)
PROC: 0B9L8ZX Drainage of Left Lung, Via Natural or Artificial Opening Endoscopic, Diagnostic (ICD-10-PCS; principal; 2018-06-24 14:00)
DX: B20 Human immunodeficiency virus [HIV] disease (principal); B59 Pneumocystosis; R18.0 Malignant ascites; J18.9 Pneumonia, unspecified organism; A31.2 Disseminated mycobacterium avium-intracellulare complex (DMAC); C85.90 Non-Hodgkin lymphoma, unspecified, unspecified site; E44.0 Moderate protein-calorie malnutrition; E87.6 Hypokalemia; R60.0 Localized edema; D64.9 Anemia, unspecified; E83.51 Hypocalcemia; Z87.891 Personal history of nicotine dependence; G62.9 Polyneuropathy, unspecified; Z68.21 Body mass index [BMI] 21.0-21.9, adult
CPT/HCPCS: 36415; 71046; 71250; 80048; 80053; 80076; 80202; 82270; 82550; 82553; 82607; 82728; 82746; 82948; 83540; 83735; 83880; 84443; 84466; 84484; 85025; 86361; 87040; 87070; 87071; 87102; 87116; 87149; 87205; 87206; 87335; 87400; 88112; 88305; 88312; 89051; 93306; 94640; 99284; G0378; J0171; J0456; J0610; J0696; J1940; J2001; J2250; J2270; J2405; J3370; J7030; J7050

== ENCOUNTER 2019-01-07 06:33 | Inpatient (IN) | payer OTHER ==
[~2019-01-07] VITALS: Ht 180.3 cm; Wt 68.5 kg
[2019-01-07] VITALS (25 sets, daily range): BP systolic 72–117; BP diastolic 49–94
[~2019-01-07 06:33] MED LIST changes: +BACTRIM DS TAB1 EACH PO; +Calcium Carbonate PO; +FOLIC ACID1 MG PO; +LEVAQUIN500 MG PO; +MUCINEX DM ER1 EACH PO; +NORCO 10-325 T1 EACH PO; +NORCO 5-325 TA1 EACH PO; +SULFAMETHOXAZO1 EAC1 PO
--- NOTE | 2019-01-07 07:09 | NUR ---
RESPIRATORY THERAPIST AT BEDSIDE SPEAKING WITH DR. PILLAI. PREPARING FOR ENTUBATION
--- NOTE | 2019-01-07 07:10 | NUR ---
ETOMIDATE 20 / SUCC 120 GIVEN
--- NOTE | 2019-01-07 07:11 | NUR ---
PATIENT ENTUBATED ETT 7.5 23@LIP
[2019-01-07 07:12] LABS: BASOPHILS % 0.2 % (0.0-1.0); EOSINOPHILS % 0.2 % (0.0-6.0); HEMATOCRIT 25.3 % (38.2-49.6); HEMOGLOBIN 7.8 g/dL (14.0-18.0); LYMPHOCYTES # (AUTO) 1.8 (1.0-3.2); LYMPHOCYTES % 29.3 % (18.0-39.1); MEAN CORPUSCULAR HEMOGLOBIN 26.8 pg (28-32); MEAN CORPUSCULAR HGB CONC 30.8 g/dL (31-35); MEAN CORPUSCULAR VOLUME 86.9 fL (81-99); MONOCYTES # (AUTO) 0.5 (0.2-0.8); MONOCYTES % 8.7 % (4.4-11.3); NEUTROPHILS # (AUTO) 3.4 (2.1-6.9); PLATELET COUNT 426 x10e3/uL (140-360); RED BLOOD COUNT 2.91 x10e6/uL (4.3-5.7); RED CELL DISTRIBUTION WIDTH 18.5 % (11.7-14.4)
--- NOTE | 2019-01-07 07:16 | NUR ---
VENT AT BEDSIDE BEING SET UP BY Jonathon
--- NOTE | 2019-01-07 07:16 | NUR ---
VENT 100%, PEEP 5 RATE 12
--- NOTE | 2019-01-07 07:19 | NUR ---
0716. BP 76/37, HR 122. 1 LITER NORMAL SALINE INFUSING.
[2019-01-07] MEDS ORDERED: SODIUM CHLORIDE 0.9% 1000ML 2,000 ML ONE (07:21)
[2019-01-07 07:27] LABS: ALANINE AMINOTRANSFERASE 33 IU/L (0-55); ALBUMIN 1.3 g/dL (3.5-5.0); ALBUMIN/GLOBULIN RATIO 0.4 (0.8-2.0); ALKALINE PHOSPHATASE 638 IU/L (40-150); ANION GAP 15.4 mmol/L (8-16); BLOOD UREA NITROGEN 45 mg/dL (7-26); BUN/CREATININE RATIO 40 (6-25); CALCIUM 7.5 mg/dL (8.4-10.2); CARBON DIOXIDE 19 mmol/L (22-29); CHLORIDE 97 mmol/L (98-107); CREATINE KINASE 10 IU/L (30-200); CREATININE, SERUM 1.13 mg/dL (0.72-1.25); EST GLOMERULAR FILTRATION RATE > 60 ML/MIN (60-); GLUCOSE 84 mg/dL (74-118); POTASSIUM 4.4 mmol/L (3.5-5.1); SODIUM 127 mmol/L (136-145)
[2019-01-07] MEDS ORDERED: PROPOFOL IV EMULSION 10MG/ML 100 ML IV STA (07:28)
[2019-01-07] MEDS ORDERED: SODIUM CHLORIDE 0.9% 1000ML 1,000 ML IV STA (07:28)
[2019-01-07] MEDS ORDERED: SUCCINYLCHOLINE CHLORIDE 20 MG/ML 10ML VIAL IV NR (07:28)
[2019-01-07] MEDS ORDERED: ETOMIDATE 2 MG/ML 10 ML INJ IV STA (07:28)
[2019-01-07] MEDS ORDERED: PIPERACILLIN/TAZO 4.5 GM 100 ML IV ONE (07:30)
[2019-01-07] MEDS ORDERED: VANCOMYCIN 1GM/NS 250 ML 250 ML IV ONE (07:30)
[2019-01-07] MEDS ORDERED: DIPHENHYDRAMINE HCL INJ 50 MG/ML VIAL IV PRN (07:45)
[2019-01-07 07:57] LABS: B-TYPE NATRIURETIC PEPTIDE2 115.8 pg/mL (0-100)
[2019-01-07] MEDS: MORPHINE SULFATE INJ 4 MG/ML INJ 1ML IV PRN (08:01)
[2019-01-07] MEDS: FAMOTIDINE 20 MG/2 ML VIAL IV SCH ×2 (08:02→16:59)
[2019-01-07 08:03] LABS: ABG HCO3 22 mmol/L (23-28); ABG PCO2 45 mmHg (41-51); ABG PH 7.29 (7.31-7.41); ABG PO2 103 mmHg (80-105)
--- NOTE | 2019-01-07 08:22 | NUR ---
DR. NEELAM XIAO AT BEDSIDE EVALUATING PATIENT
[2019-01-07] MEDS ORDERED: LIDOCAINE HCL 1% LOCAL INJ 20 ML VIAL ONE (08:30)
--- NOTE | 2019-01-07 08:37 | NUR ---
PER DR. Genaro XIAO. RIGHT TRIPLE LUMEN IN NECK UNSUCCESFUL PER X-RAY. REMOVED. 4X4 AND PRESSUR DRESSING APPLYED
[2019-01-07] MEDS ORDERED: SODIUM CHLORIDE 0.9% 1000ML 1,000 ML IV SCH (09:00)
--- NOTE | 2019-01-07 09:12 | NUR ---
DR. Genaro XIAO SPEAKING WITH MOM, UPDATING HER ON STATUS
[2019-01-07] MEDS ORDERED: MIDAZOLAM HCL 2 MG/2 ML VIAL IV NR (09:15)
--- NOTE | 2019-01-07 09:42 | Diagnostic Imaging Report ---
Chest, one view History: Sepsis Comparison: none Findings: Patchy bilateral airspace disease, right greater than left. Endotracheal tube appears in satisfactory position. The heart size is accentuated by portable technique. No pneumothorax. There are probably small bilateral pleural effusions as well as trace fluid within the minor fissure. Impression: 1. Patchy bilateral airspace disease, with primary differential considerations of multifocal pneumonia or pulmonary edema. 2. Satisfactory endotracheal tube position. 3. Probable small bilateral pleural effusions. Signed by: Cristian Hyde MD on 01/07/2019 7:56 AM
[2019-01-07 09:46] LABS: BAND NEUTROPHILS % (MANUAL) 13 %; EOSINOPHILS % (MANUAL) 1 % (0-7); LYMPHOCYTES % (MANUAL) 16 % (19-48); MONOCYTES % (MANUAL) 10 % (3.4-9.0); NEUTROPHILS % (MANUAL) 60 % (40-74)
[2019-01-07 09:47] LABS: ANISOCYTOSIS SLIG; PLATELET ESTIMATE SLIGHTLY INCREASED; PLATELET MORPHOLOGY COMMENT NORMAL; POIKILOCYTOSIS SLIGHT; RBC MORPHOLOGY COMMENT ABNORMAL
--- NOTE | 2019-01-07 10:20 | Diagnostic Imaging Report ---
EXAMINATION: CHEST SINGLE (PORTABLE) INDICATION: Central line placement COMPARISON: Chest radiograph of 01/07/2019 FINDINGS: LINES/TUBES:Interval placement of right IJ central venous catheter which courses into and terminates in the left innominate vein. Endotracheal tube in unchanged position, terminating 4.5 cm above the ezekiel. NG tube projects below the diaphragm with tip not seen and side-port in the stomach. EKG leads overlie the chest. LUNGS:The lung volumes are very low. Patchy bibasilar opacities silhouette both hemidiaphragms. There is perihilar fullness and indistinctness of the pulmonary vasculature. PLEURA:Likely layering right pleural effusion. No pneumothorax. MEDIASTINUM:The cardiomediastinal silhouette appears enlarged. BONES/SOFT TISSUES:No acute osseous injury. Vertebral augmentation at 2 lower thoracic levels. ABDOMEN:No free air under the diaphragm. IMPRESSION: Interval placement of right IJ central venous catheter which courses into and terminates in the left innominate vein. Recommend repositioning to the SVC. Other lines and tubes as above. Worsening pulmonary edema. Likely right layering pleural effusion. Worsening bibasilar patchy opacities. Given relatively short time interval compared to the prior radiograph, this more likely represents atelectasis than superimposed aspiration or pneumonia. Signed by: Peter Stanford MD on 01/07/2019 10:16 AM
[2019-01-07] MEDS: NOREPINEPHRINE INJ 4MG/4ML 8 MG in DEXTROSE 5% 250ML 250 ML IV SCH ×2 (10:47→14:41)
[2019-01-07] MEDS: SODIUM CHLORIDE 0.9% 250ML IRRIG IR SCH ×4 (11:45→22:04)
--- NOTE | 2019-01-07 11:58 | Operative Report ---
DATE OF PROCEDURE: SURGEON: Horacio Sherwood MD PROCEDURE: Central line placement under ultrasound guidance. PREOPERATIVE DIAGNOSIS: Cirrhosis. POSTOPERATIVE DIAGNOSIS: Cirrhosis. CONSENT: Procedure was considered emergent because of hypotension and respiratory failure due to hypotension. MEDICATIONS: 1% lidocaine for local anesthesia. PROCEDURE IN DETAIL: The right IJ line was located with an ultrasound machine. It collapsed very easily suggesting dehydration. There was no intraluminal thrombus. The patient was then prepped sterilely. The ultrasound machine was used to locate the right internal jugular vein. The area was anesthetized with 1% lidocaine. An 18-gauge needle was used to cannulate the internal jugular vein. A wire was passed over the needle and then the dilator was used to dilate the skin. A triple-lumen catheter was placed over the wire by the Seldinger technique. All the ports flushed. COMPLICATIONS: None. Chest x-ray is pending at the time of this dictation. Horacio Sherwood MD [facility]/MODL /[id number]
[2019-01-07] MEDS: ALBUTEROL/IPRATROPIUM 3 ML NEB NEB SCH ×2 (13:30→19:05)
--- NOTE | 2019-01-07 13:36 | NUR ---
left message regarding new consult Addendum: 01/07/19 at 1339 by Mali Melissa RN spoke with Mehrdad
--- NOTE | 2019-01-07 14:25 | Consultation ---
DATE OF CONSULTATION: Pulmonary Critical Care Consultation CHIEF COMPLAINT: Respiratory distress and abnormal x-ray. HISTORY OF PRESENT ILLNESS: The patient is a 48-year-old man. He has a history of HIV. He receives antiretroviral medications on a regular basis. He has a prior history of pneumocystis pneumonia. He also required hospitalization at [facility] in June. At that time, he had mycobacterium avium in his sputum. The patient has a history of liver disease and ascites. He is treated at the [facility]. He has a peritoneal catheter that attaches to a bag to drain his ascites. He came in with worsening dyspnea and congestion over several days. He did not have fever or chest pain. When he arrived in the ICU, he had respiratory distress and required intubation. PAST MEDICAL HISTORY: 1. HIV as noted above. 2. Lymphoma. 3. Prior pneumocystis. 4. History of mycobacterium avium infection. PAST SURGICAL HISTORY: 1. History of a lymph node biopsy of the abdomen, suggestive of lymphoma. 2. Status post peritoneal drain placement for ascites. SOCIAL HISTORY: The patient is not an active smoker or drinker. FAMILY HISTORY: Family history is noncontributory. REVIEW OF SYSTEMS: The patient has no headaches or fevers. He is not having any chest pain. He did have difficulty breathing. He has no abdominal pain. He has no nausea or vomiting. He does have ascites. He has no leg edema. PHYSICAL EXAMINATION: VITAL SIGNS: The patient is afebrile. The blood pressure is 108/66 and the saturation is 98%. HEENT: Shows no facial swelling or erythema. There is an oral endotracheal tube in place. CARDIAC: Reveals regular rate and rhythm with normal S1 and S2. LUNGS: Auscultation of lungs shows clear breath sounds bilaterally. There is no wheezing. ABDOMEN: Soft. There is ascites. There is a right femoral line in place. EXTREMITIES: There is no leg edema or calf tenderness. There is no cyanosis or clubbing. SKIN: Shows no rashes. NEUROLOGICAL: Shows no focal abnormalities. LABORATORY DATA: White blood cell count is 6 and hemoglobin is 7.8. The platelet count is 426. The BUN to creatinine ratio is 45 to 1.13. Sodium is 127. RADIOGRAPHIC DATA: Chest x-ray shows bilateral patchy airspace disease. IMPRESSION: 1. Multifocal pneumonia in an immunosuppressed patient with severe sepsis, present on admission. 2. Cirrhosis. 3. History of mycobacterium avium in the sputum. 4. History of lymphoma. 5. HIV infection. PLAN: 1. We will consult Infectious Disease and begin antibiotics appropriate for an immunocompromised host. 2. Aggressive IV fluids. 3. Repeat blood gas and wean ventilator as tolerated. 4. Begin enteral feedings. 5. DVT prophylaxis. 6. Abdominal ultrasound with cultures of peritoneal fluid. MD CHARU Mayer/MODL /[id number]
[2019-01-07] MEDS ORDERED: VALACYCLOVIR500 MG PO (14:28)
[2019-01-07] MEDS ORDERED: MIDODRINE HCL2.5 MG PO (14:28)
[2019-01-07] MEDS ORDERED: NORCO 10-325 T1 EACH (14:28)
[2019-01-07] MEDS ORDERED: OXYCONTIN10 MG (14:28)
[2019-01-07] MEDS ORDERED: NEURONTIN400 MG (14:28)
[2019-01-07] MEDS ORDERED: HYDROCORTISONE10 MG PO (14:28)
[2019-01-07] MEDS ORDERED: GABAPENTIN400 MG PO (14:28)
[2019-01-07] MEDS ORDERED: ZOFRAN4 MG PO (14:28)
[2019-01-07] MEDS ORDERED: VITAMIN D PO (14:28)
[2019-01-07 14:31] LABS: INR 1.12; PROTHROMBIN TIME 14.9 seconds (11.9-14.5)
[2019-01-07 14:32] LABS: PARTIAL THROMBOPLASTIN TIME 37.6 seconds (23.8-35.5)
[2019-01-07] MEDS ORDERED: HYDROCORTISONE SOD SUCCINATE 100 MG VIAL IV SCH (14:37)
[2019-01-07 14:53] LABS: ABG HCO3 18 mmol/L (23-28); ABG PCO2 41 mmHg (41-51); ABG PH 7.26 (7.31-7.41); ABG PO2 100 mmHg (80-105)
[2019-01-07] MEDS ORDERED: SUCCINYLCHOLINE CHLORIDE 20 MG/ML 10ML VIAL ONE (15:10)
[2019-01-07] MEDS ORDERED: ETOMIDATE 2 MG/ML 10 ML INJ IV ONE (15:10)
[2019-01-07] MEDS ORDERED: MIDODRINE HCL 5 MG TABLET PO SCH (16:00)
[2019-01-07] MEDS ORDERED: MIDODRINE 2.5 MG TAB PO SCH (16:00)
--- NOTE | 2019-01-07 16:39 | NUR ---
Nutrition Intervention Note RD Recommendation(s) for Physician: -If pt requiring Levophed >5mcg/min, rec trickle feeding with Osmolite 1.2 @10ml/hr -When hemodynamically stable, rec to increase Osmolite 1.2 to goal rate of 50mL/hr with 2 pkts of Balta daily, providing 1440kcal, 95g protein, 984mL water -Rec 50mL water flushes q 4hr, additional per MD -Check labs, gastric tolerance, weight daily Plan of Care: RD following, monitoring for tolerance and adequacy, TF rec Nutrition reason for involvement: RN consult- New TF RD Assessment 01/07- 48yo M, who was admitted for respiratory distress. Currently intubated and ventilated. Visited pt in the room. Propofol @4.2mL/hr; Levophed has increased to 10mcg/min. No family on bedside to provide hx. Pt has some muscle and fat loss upon observation. Reviewed his medical records and labs. Obtained verbal approval from Dr. Sherwood to put in new TF order. Communicated with JULY Cordova regarding TF recommendation. Principal Problems/Diagnoses: Multifocal pneumonia in an immunosuppressed patient with severe sepsis, present on admission PMH: liver disease, ascites, lymphoma, HIV, prior pneumocystis, mycobacterium avium infection GI: Abdomen non-tender, round, distended, flatus present, +NGT Skin: DTI on sacrum and spine (wound care was consulted) Labs: (01/07) Na 127 L, BUN 45 H, Ca 7.5 L, AST H, Alk phosphatase 638 H, Meds: (01/07) norepinephrine, NaCl, Propofol Ht: 71in Wt: 155lb BMI: 21.6kg/m2 IBW: 172lb +/- 10% Malnutrition Evaluation (01/07/2019) The patient does not meet criteria for a specified degree of malnutrition at this time. Will re-evaluate at follow-up as appropriate. Energy intake: Unable to assess Weight loss: ~8% in a year, not meeting criteria Fat loss: Moderate some clavicle protusion, Muscle loss: Moderate slight temporal depression, squaring of shoulder Supporting Evidence: Fluid accumulation: unable to evaluate Functional Status: unable to evaluate Nutrition Prescription (Diet Order): Osmolite 1.2 Estimated Nutritional Needs: Calories: 1400 1750kcal(20-25kcal/kg/d) Weight used: CBW Protein: 91 140g(1.3-2g/kg/d) Weight used: CBW Diet Adequacy: Not meeting calorie needs, Not meeting protein needs Diet Education Needs Assessment: Diet education indicated, but patient not appropriate for education at this time. Nutrition Care Level: mod Nutrition Diagnosis: Inadequate oral intake related to current medical status (intubated/ ventilated) as evidenced by pt requiring EN as main source of nutrition. Goal: Patient will meet 75-100% of estimated needs by follow up Progress: Not Progressing Interventions: Composition, Rate, Route Monitoring/Evaluation: Total energy intake, Total protein intake, Formula/Solution, Weight change Signed: Rubi Mora MS, RD, LD
[2019-01-07] MEDS: METHYLPREDNISOLONE SOD SUCC 125 MG/2ML VIAL IV SCH ×2 (16:57→22:04)
[2019-01-07] MEDS: PANTOPRAZOLE 40 MG 10ML VIAL IV SCH (16:57)
[2019-01-07] MEDS: SULFAMETHOXAZOLE IV SCH (16:58)
[2019-01-07] MEDS: DEXTROSE 5% IV SCH (16:58)
[2019-01-07] MEDS: TRIMETHOPRIM IV SCH (16:58)
[2019-01-07 17:45] LABS: ABG HCO3 18 mmol/L (23-28); ABG PCO2 33 mmHg (41-51); ABG PH 7.33 (7.31-7.41); ABG PO2 225 mmHg (80-105)
[2019-01-07] MEDS ORDERED: SODIUM CHLORIDE 0.9% 250ML 250 ML ONE (19:05)
[2019-01-07] MEDS: ACYCLOVIR SODIUM INJ 1,000 MG in SODIUM CHLORIDE 0.9% 250ML 250 ML IV SCH (19:32)
--- NOTE | 2019-01-07 22:45 | NUR ---
Pt's family refused CT of the chest at this time. Notified Dr Sherwood, will continue to monitor
[2019-01-08] VITALS (25 sets, daily range): BP systolic 87–111; BP diastolic 54–75
[2019-01-08] MEDS: SULFAMETHOXAZOLE IV SCH ×2 (00:26→09:17)
[2019-01-08] MEDS: TRIMETHOPRIM IV SCH ×2 (00:26→09:17)
[2019-01-08] MEDS: SODIUM CHLORIDE 0.9% 250ML IRRIG IR SCH ×6 (00:26→20:11)
[2019-01-08] MEDS: DEXTROSE 5% IV SCH ×2 (00:26→09:17)
[2019-01-08] MEDS: MORPHINE SULFATE INJ 4 MG/ML INJ 1ML IV PRN ×2 (01:17→05:30)
[2019-01-08] MEDS: ALBUTEROL/IPRATROPIUM 3 ML NEB NEB SCH ×4 (02:20→19:00)
[2019-01-08 05:07] LABS: BASOPHILS % 0.2 % (0.0-1.0); HEMATOCRIT 21.1 % (38.2-49.6); LYMPHOCYTES # (AUTO) 0.6 (1.0-3.2); MEAN CORPUSCULAR HGB CONC 31.8 g/dL (31-35); MEAN CORPUSCULAR VOLUME 85.1 fL (81-99); MONOCYTES # (AUTO) 0.3 (0.2-0.8); MONOCYTES % 4.7 % (4.4-11.3); NEUTROPHILS # (AUTO) 3.8 (2.1-6.9); NEUTROPHILS % 71.6 % (38.7-80.0); PLATELET COUNT 330 x10e3/uL (140-360); RED BLOOD COUNT 2.48 x10e6/uL (4.3-5.7); RED CELL DISTRIBUTION WIDTH 18.4 % (11.7-14.4)
[2019-01-08 05:15] LABS: HEMOGLOBIN 6.7 g/dL (14.0-18.0)
[2019-01-08 05:30] LABS: ALANINE AMINOTRANSFERASE 29 IU/L (0-55); ALBUMIN/GLOBULIN RATIO 0.3 (0.8-2.0); ALKALINE PHOSPHATASE 527 IU/L (40-150); ANION GAP 13.7 mmol/L (8-16); BLOOD UREA NITROGEN 35 mg/dL (7-26); BUN/CREATININE RATIO 36 (6-25); CALCIUM 7.2 mg/dL (8.4-10.2); CARBON DIOXIDE 17 mmol/L (22-29); CHLORIDE 100 mmol/L (98-107); CREATININE, SERUM 0.98 mg/dL (0.72-1.25); EST GLOMERULAR FILTRATION RATE > 60 ML/MIN (60-); GLUCOSE 216 mg/dL (74-118); IRON 7 ug/dL (65-175); POTASSIUM 3.7 mmol/L (3.5-5.1); SODIUM 127 mmol/L (136-145); TRANSFERRIN < 70 mg/dL (174-364)
[2019-01-08] MEDS: METHYLPREDNISOLONE SOD SUCC 125 MG/2ML VIAL IV SCH ×3 (05:30→21:07)
[2019-01-08] MEDS ORDERED: SODIUM CHLORIDE 0.9% 250ML 250 ML IV ONE (05:45)
[2019-01-08 05:46] LABS: BILIRUBIN,DIRECT 0.7 mg/dL (0.0-0.5)
--- NOTE | 2019-01-08 06:01 | NUR ---
NOTIFIED OF CRITICAL LAB VALUES HGB 6.7. RECEIVED AN ORDER TO GIVE 1PRBC AND TO RESTART PROPOFOL. PT REFUSED XRAY AND BATH THIS MORNING WILL CONTINUE TO MONITOR
[2019-01-08] MEDS ORDERED: SODIUM CHLORIDE 1 GM TAB PO ONE (06:30)
[2019-01-08] MEDS: PROPOFOL IV EMULSION 10MG/ML 100 ML IV SCH (06:45)
--- NOTE | 2019-01-08 08:39 | Diagnostic Imaging Report ---
EXAMINATION: CHEST SINGLE (PORTABLE) INDICATION: Respiratory failure COMPARISON: Multiple prior chest radiographs, most recently of 01/07/2019 FINDINGS: LINES/TUBES:Endotracheal tube terminates 6.5 cm above the ezekiel. NG tube projects below the diaphragm with tip not visualized. EKG leads overlie the chest. LUNGS:Interval improvement in lung volumes and pulmonary edema. Patchy opacity at the right lung base, likely subsegmental atelectasis. PLEURA:Interval decrease in right pleural effusion, now trace. MEDIASTINUM:Mild cardiomegaly. BONES/SOFT TISSUES:No acute osseous injury. Unchanged findings of prior vertebral augmentation. ABDOMEN:No free air under the diaphragm. IMPRESSION: Interval improvement in lung volumes and pulmonary edema. Residual patchy opacity at the right lung base, most likely subsegmental atelectasis. Signed by: Peter Stanford MD on 01/08/2019 8:35 AM
[2019-01-08] MEDS: PANTOPRAZOLE 40 MG 10ML VIAL IV SCH (08:56)
[2019-01-08] MEDS: HYDROCORTISONE 10 MG TAB PO SCH ×2 (08:56→16:54)
[2019-01-08] MEDS: FAMOTIDINE 20 MG/2 ML VIAL IV SCH ×2 (08:56→16:54)
[2019-01-08] MEDS: MIDODRINE HCL 5 MG TABLET PO SCH ×3 (08:56→21:07)
[2019-01-08] MEDS: HYDROCODONE/APAP 10MG-325MG TAB PO PRN ×3 (08:56→19:45)
[2019-01-08] MEDS: FOLIC ACID 1 MG TAB PO SCH (08:56)
[2019-01-08 08:59] LABS: ANISOCYTOSIS SLIGHT; BAND NEUTROPHILS % (MANUAL) 7 %; LYMPHOCYTES % (MANUAL) 8 % (19-48); MONOCYTES % (MANUAL) 14 % (3.4-9.0); NEUTROPHILS % (MANUAL) 68 % (40-74); NUCLEATED RED BLOOD CELLS 2; POIKILOCYTOSIS MODERATE
[2019-01-08 09:00] LABS: BURR CELLS SLIGHT; ELLIPTOCYTE, RBC SLIGHT; HELMET CELLS RARE; OVALOCYTES FEW; PLATELET ESTIMATE ADEQUATE; PLATELET MORPHOLOGY COMMENT NORMAL; RBC MORPHOLOGY COMMENT ABNORMAL; SCHISTOCYTES RARE
[2019-01-08] MEDS: DESCOVY PO SCH (10:09)
[2019-01-08 10:11] LABS: ABG HCO3 18 mmol/L (23-28); ABG PCO2 29 mmHg (41-51); ABG PH 7.39 (7.31-7.41); ABG PO2 106 mmHg (80-105)
--- NOTE | 2019-01-08 11:34 | Progress Note ---
DATE: Progress note. SUBJECTIVE: The patient's hemoglobin is 6.7 this morning and is awaiting packed red blood cells. He continues to have some hypotension and is requiring Levophed at 10 mcg. He is urinating well with this. The patient was placed on a spontaneous breathing trial with a pressure support of 8 and CPAP of 5. He is breathing 16-18 and was admitted with tidal volumes of 400-500 mL. PHYSICAL EXAMINATION: VITAL SIGNS: The patient is afebrile. The blood pressure is 107/67 and the pulse is 94. Saturation is 100%. HEENT: Shows no facial swelling or erythema. The patient has an oral endotracheal tube in place. CARDIAC: Reveals regular rate and rhythm with normal S1 and S2. There are no murmurs or rubs heard. LUNGS: Auscultation of lungs reveals clear breath sounds bilaterally. There is no wheezing. ABDOMEN: Soft. There is some ascites, draining the peritoneal fluid. EXTREMITIES: There is no leg edema or calf tenderness. There is no cyanosis or clubbing. SKIN: Shows no rashes. NEUROLOGICAL: Shows no focal abnormalities. LABORATORY DATA: Sodium is 127, BUN to creatinine ratio is 35 to 0.98. Carbon dioxide is 17. Alkaline phosphatase is 522. White blood cell count is 5.3 and the platelet count is 330. The hemoglobin is 6.7 with an MCV of 85. IMPRESSION: 1. Multifocal pneumonia in an immunocompromised patient with severe sepsis, present on admission. 2. Volume depletion. 3. Cirrhosis. 4. History of mycobacterium avium. 5. History of lymphoma. 6. History of human immunodeficiency virus. 7. Anemia secondary to chronic blood loss. 8. Acute respiratory failure. PLAN: 1. The patient will receive packed red blood cells today. 2. Continue spontaneous breathing trial and repeat ABG. Hopefully, the patient can be extubated. 3. Wean pressors as tolerated. 4. Await further input from Infectious Disease concerning antibiotics. 5. Consider CT scan of the chest and abdomen and pelvis to evaluate for any recurrent lymphoma, pleural effusions or other sources of infection. 6. greater than 35 minutes in direct critical care time 7. case discussed with nursing and family Horacio Sherwood MD [facility]/RE[facility] /[id number]
[2019-01-08] MEDS ORDERED: SODIUM CHLORIDE 0.9% 250ML 250 ML ONE (12:11)
[2019-01-08] MEDS: GABAPENTIN 400 MG CAP NG SCH ×2 (13:08→21:07)
[2019-01-08] MEDS: TRIMETHOPRIM/SULFAMETHOXAZOLE 160-800 MG TAB PO SCH ×2 (13:08→21:07)
[2019-01-08] MEDS: AZITHROMYCIN 500MG/NS 250 ML 250 ML IV SCH (13:08)
[2019-01-08] MEDS: CEFTRIAXONE SOD 2 GM/NS 100 ML 100 ML IV SCH (13:08)
[2019-01-08] MEDS ORDERED: GABAPENTIN 300 MG CAP NG SCH (14:00)
--- NOTE | 2019-01-08 16:38 | NUR ---
WOUND CARE CONSULTATION: THIS IS A 48 YEAR OLD PATIENT ADMITTED TO [facility] FOR PNEUMONIA, RESPIRATORY FAILURE, AND ACUTE SEPSIS. PATIENT HAS A HISTORY OF HIV, LYMPHOMA, CIRRHOSIS, SHINGLES, AND IMMOBILITY. HEAD TO TOE SKIN ASSESSMENT PERFORMED. PATIENT HAS A STAGE 2 PRESSURE ULCER TO THE SACRUM MEASURING 7.3X4.2X0.1CM, PINK GRANULATION NOTED TO WOUND BED. PATIENT HAS A LEFT HEEL AREA OF 100% BLANCHABLE REDNESS, MEASURING 2X1CM. PATIENT HAS A RIGHT HEEL AREA OF 100% BLANCHABLE REDNESS MEASURING, 2X1CM. PATIENT HAS A STAGE 1 PRESSURE ULCER TO THE PROXIMAL BACK MEASURING 2.2X0.7CM, 100% NONBLANCHABLE. PATIENT HAS A STAGE 2 PRESSURE ULCER TO THE DISTAL BACK MEASURING 2X0.6X0.1CM, 80% SLOUGH AND 20% PINK GRANULATION NOTED TO WOUND BED. PATIENT HAS MULTIPLE STABLE ESCHARS NOTED TO THE RIGHT HAND WITH AREAS OF PERIWOUND ECCHYMOSIS NOTED; PATIENT STATED THAT THIS IS SCABIES THAT HAS BEEN TREATED AND PATIENT HAS A HOME OIL MEDICATION THAT HE USES DAILY FOR TREATMENT, DR. HAYWARD IS AWARE OF PATIENT HOME OIL MEDICATION USE FOR ESCHARS. LABS: WBC6.08 ALB1.3 URINE, BLOOD, AND SPUTUM CULTURES = PENDING RECOMMENDATIONS: -CONTINUE ALTERNATING PRESSURE RELIEF MATTRESS. -CONTINUE BILATERAL HEEL PROTECTORS WITH PILLOW SUSPENSION. -TURN EVERY 2 HOURS AND PRN. -NURSING TO CLEAN STAGE 2 PRESSURE ULCER TO SACRUM WITH NORMAL SALINE, PAT DRY, APPLY VENELEX THEN ALLEVYN FOAM DRESSING DAILY AND PRN. -NURSING TO CLEAN LEFT HEAL AREA OF BLANCHABLE REDNESS AND RIGHT HEEL AREA OF BLANCHABLE REDNESS WITH NORMAL SALINE, PAT DRY, APPLY VENELEX THEN ALLEVYN FOAM DRESSINGS; CHANGE DAILY AND PRN. -NURSING TO CLEAN PROXIMAL BACK STAGE 1 PRESSURE ULCER WITH NORMAL SALINE, PAT DRY, APPLY VENELEX AND THEN ALLEVYN FOAM DRESSING; CHANGE DAILY AND PRN. -NURSING TO CLEAN DISTAL BACK STAGE 2 PRESSURE ULCER WITH NORMAL SALINE, PAT DRY, APPLY NICKEL THICKNESS AMOUNT OF SANTYL, THEN NORMAL SALINE MOISTENED 4X4 GAUZE, THEN ALLEVYN FOAM DRESSING; CHANGE DAILY AND PRN. THANK YOU FOR THIS WOUND CARE CONSULTATION. Addendum: 01/08/19 at 1657 by Rimma Lawson RN Amended: Links added.
--- NOTE | 2019-01-08 16:51 | Consultation ---
DATE OF CONSULTATION: REASON FOR CONSULTATION: 1. Respiratory failure. 2. HIV. 3. Herpes zoster. 4. Hepatitis B with liver cirrhosis. HISTORY OF PRESENT ILLNESS: This patient, who is a 48-year-old white male, who has history of HIV and AIDS, history of liver cirrhosis. He has been followed by physicians in the medical center. He does take his antiretroviral medication on a regular basis, although he does not remember what his CD4 cell count. The patient had history of Pneumocystis carinii pneumonia. He also has history of Mycobacterium avium in the sputum. He has history of liver cirrhosis. He does have a peritoneal catheter draining his ascites since June. He was recently diagnosed with herpes zoster involving his right upper extremity and he was on acyclovir day #4. When he presented here with shortness of breath, the patient was admitted, intubated, started on several antibiotics. I was asked to see him today. He is off the vent, alert, oriented, and comfortable. The patient has a complicated medical history as above. ALLERGIES: NKA. SOCIAL HISTORY: There is no smoking, drug abuse, or alcohol abuse. FAMILY HISTORY: Otherwise noncontributory. PAST MEDICAL HISTORY: HIV as noted, lymphoma, Pneumocystis carinii, Mycobacterium avium infection. PAST SURGICAL HISTORY: Lymph node biopsy of the abdomen suggestive of lymphoma, status post peritoneal drain of ascites. REVIEW OF SYSTEMS: He is just generally weak. He is complaining of pain in the arm. Otherwise, HEENT: There is no headache, visual changes, or hearing changes. GI: There is no nausea, no vomiting, no diarrhea. CARDIAC: There is no arrhythmia. NEURO: No seizure activity. SKIN: There are no other rashes except on the upper extremity. LABORATORY DATA: His blood cultures, no growth 24 hours. His sputum showing gram-negative rods. There was also moderate gram-positive cocci, less than 25 epithelial cell. His white count 5.32. His hemoglobin on admission was 6.7, hematocrit 21. His platelets 330. Sodium 127, potassium 3.7, creatinine 0.98, albumin of 1, and glucose of 216. MEDICATIONS: He was currently on normal saline. He is on Bactrim. He is on hydrocortisone, Protonix, folic acid, methylprednisolone, acyclovir, and Neurontin. PHYSICAL EXAMINATION: GENERAL: He is currently alert and oriented, does not seem to be in acute distress. VITAL SIGNS: Stable. Afebrile. HEENT: Normocephalic. Not icteric. NECK: Supple. CHEST: Few crackles. COR: S1 and S2. No S3, S4, or murmur. ABDOMEN: Soft. Bowel sounds present. No tenderness. EXTREMITIES: No edema. SKIN: No rash except on the right upper extremity, but it is dry rash. IMPRESSION: 1. Respiratory failure, resolved. 2. Pulmonary edema, resolved. This patchy opacity in the right lower lung base could be atelectasis. 3. Anemia of chronic disease. 4. Herpes zoster, healing affecting his right upper extremity. 5. Acquired immunodeficiency syndrome. 6. History of lymphoma. 7. Hepatitis B with liver cirrhosis with drain. I would suggest to put him on Rocephin, gram a day to treat community-acquired pneumonia. Continue with the Bactrim Sunday, Sunday, and Sunday. We will also put him on azithromycin 1200 mg daily. We will change his acyclovir to p.o. We will taper down his prednisone. I think this may need to help his neuropathy. We will give him a 20 mg p.o. daily. Continue his antiretroviral medication. He is getting blood transfusion. We will follow with you. MD OTONIEL Sanches/REUBEN /[id number]
[2019-01-08] MEDS: ACYCLOVIR SODIUM INJ 1,000 MG in SODIUM CHLORIDE 0.9% 250ML 250 ML IV SCH (19:18)
[2019-01-08] MEDS ORDERED: TRAMADOL HCL 50 MG TAB NG ONE (22:30)
[2019-01-09] VITALS (21 sets, daily range): BP systolic 93–114; BP diastolic 63–78
[2019-01-09] MEDS: SODIUM CHLORIDE 0.9% 250ML IRRIG IR SCH ×6 (00:31→19:01)
[2019-01-09] MEDS: ALBUTEROL/IPRATROPIUM 3 ML NEB NEB SCH ×4 (01:00→19:45)
[2019-01-09] MEDS: HYDROCODONE/APAP 10MG-325MG TAB PO PRN ×4 (01:35→21:41)
[2019-01-09] MEDS: PROPOFOL IV EMULSION 10MG/ML 100 ML IV SCH (05:02)
[2019-01-09] MEDS: TRIMETHOPRIM/SULFAMETHOXAZOLE 160-800 MG TAB PO SCH ×3 (05:02→22:01)
[2019-01-09] MEDS: GABAPENTIN 400 MG CAP NG SCH (05:02)
[2019-01-09] MEDS: METHYLPREDNISOLONE SOD SUCC 125 MG/2ML VIAL IV SCH (05:02)
[2019-01-09 05:15] LABS: BASOPHILS % 0.3 % (0.0-1.0); HEMATOCRIT 21.7 % (38.2-49.6); HEMOGLOBIN 7.2 g/dL (14.0-18.0); LYMPHOCYTES # (AUTO) 0.3 (1.0-3.2); LYMPHOCYTES % 8.7 % (18.0-39.1); MEAN CORPUSCULAR HEMOGLOBIN 28.1 pg (28-32); MEAN CORPUSCULAR HGB CONC 33.2 g/dL (31-35); MEAN CORPUSCULAR VOLUME 84.8 fL (81-99); MONOCYTES # (AUTO) 0.2 (0.2-0.8); NEUTROPHILS # (AUTO) 2.8 (2.1-6.9); NEUTROPHILS % 75.2 % (38.7-80.0); PLATELET COUNT 358 x10e3/uL (140-360); RED BLOOD COUNT 2.56 x10e6/uL (4.3-5.7); RED CELL DISTRIBUTION WIDTH 17.8 % (11.7-14.4)
[2019-01-09 05:38] LABS: ALANINE AMINOTRANSFERASE 24 IU/L (0-55); ALBUMIN 1.1 g/dL (3.5-5.0); ALBUMIN/GLOBULIN RATIO 0.4 (0.8-2.0); ALKALINE PHOSPHATASE 666 IU/L (40-150); ANION GAP 14.1 mmol/L (8-16); BLOOD UREA NITROGEN 43 mg/dL (7-26); BUN/CREATININE RATIO 36 (6-25); CALCIUM 7.2 mg/dL (8.4-10.2); CARBON DIOXIDE 17 mmol/L (22-29); CHLORIDE 102 mmol/L (98-107); CREATININE, SERUM 1.18 mg/dL (0.72-1.25); EST GLOMERULAR FILTRATION RATE > 60 ML/MIN (60-); GLUCOSE 154 mg/dL (74-118); POTASSIUM 4.1 mmol/L (3.5-5.1); SODIUM 129 mmol/L (136-145)
[2019-01-09] MEDS ORDERED: CALCIUM GLUCONATE 10% INJ 13.95 MEQ in SODIUM CHLORIDE 0.9% 100 ML 100 ML IV ONE (06:30)
[2019-01-09] MEDS ORDERED: MORPHINE SULFATE 2 MG/ML SYR 1ML IV PRN ×2 (07:15→20:00)
[2019-01-09 07:29] LABS: LYMPHOCYTES % (MANUAL) 6 % (19-48); MONOCYTES % (MANUAL) 6 % (3.4-9.0); NEUTROPHILS % (MANUAL) 88 % (40-74)
[2019-01-09 07:31] LABS: ANISOCYTOSIS MODERATE; HYPOCHROMASIA MODERATE; MICROCYTOSIS MODERATE; PLATELET ESTIMATE ADEQUATE; PLATELET MORPHOLOGY COMMENT NORMAL; RBC MORPHOLOGY COMMENT ABNORMAL
[2019-01-09 07:41] LABS: POIKILOCYTOSIS SLIGHT
[2019-01-09] MEDS ORDERED: SODIUM CHLORIDE 0.9% 1000ML 1,000 ML IV ONE (08:15)
--- NOTE | 2019-01-09 08:49 | Progress Note ---
DATE: SUBJECTIVE: The patient has complaints of pain in his arm from the shingles. He complains of some lower back pain. Extubated yesterday. He continues to have a G tube in and is refusing a swallowing evaluation. He was seen by Infectious Disease yesterday. They recommended switching the Bactrim to p.o., tapering the prednisone, and switching the acyclovir to oral medications. PHYSICAL EXAMINATION: VITAL SIGNS: The patient is afebrile. The blood pressure is 97/70 and the pulse ox is 97%. on 2 L. HEENT: Shows no facial swelling or erythema. CARDIAC: Reveals regular rhythm with a normal S1, S2. There are no murmurs or rubs heard. LUNGS: Auscultation of lungs reveals clear breath sounds bilaterally. There is no wheezing. ABDOMEN: Soft and nontender. There is no rebound or guarding. There is some ascites. EXTREMITIES: There is no leg edema or calf tenderness. SKIN: There is a rash in the right arm consistent with shingles. LABORATORY DATA: White blood cell count is 3.7 with a hemoglobin of 7.2. Platelet count is 358. The BUN to creatinine ratio is 43 to 1.18 and the sodium is 129. IMPRESSION: 1. Cirrhosis with ascites. 2. Multifocal pneumonia with severe sepsis, present on admission. 3. History of lymphoma. 4. History of immunodeficiency virus. 5. Anemia secondary to chronic blood loss. 6. Acute respiratory failure. 7. Shingles. PLAN: 1. Adjust antibiotics as recommended by Infectious Disease. 2. Taper prednisone. 3. Normal saline x1 liter. 4. Remove feeding tube. Initiate swallowing evaluation. 5. Pain control. Horacio Sherwood MD [facility]/MODL /[id number]
[2019-01-09] MEDS: PREGABALIN 75 MG CAP NG SCH ×2 (08:51→17:22)
[2019-01-09] MEDS: MIDODRINE HCL 5 MG TABLET PO SCH ×3 (09:00→21:39)
[2019-01-09] MEDS: DESCOVY PO SCH (09:00)
[2019-01-09] MEDS: HYDROCORTISONE 10 MG TAB PO SCH ×2 (09:00→17:22)
[2019-01-09] MEDS: FOLIC ACID 1 MG TAB PO SCH (09:00)
[2019-01-09] MEDS ORDERED: PREGABALIN 75 MG CAP PO SCH (09:00)
[2019-01-09] MEDS: PANTOPRAZOLE SODIUM 40 MG SUSPDR.PKT PO SCH (09:00)
[2019-01-09] MEDS: COLLAGENASE 5 GM TUBE TOP SCH (10:42)
[2019-01-09] MEDS: BALSAM PERU/CASTOR OIL 5 GM OINT...G. TP SCH (10:42)
[2019-01-09] MEDS: VALACYCLOVIR HCL 500 MG TAB PO SCH (10:42)
[2019-01-09] MEDS: CALAMINE LOTION 4 OZ BOTTLE TP SCH ×3 (10:42→22:01)
--- NOTE | 2019-01-09 11:22 | Diagnostic Imaging Report ---
EXAM: CT Chest WITH intravenous contrast 01/09/2019 1:32 PM INDICATION: Lymphoma COMPARISON: Chest radiograph 01/08/2019, chest CT 06/22/2018 and 10/23/2012 TECHNIQUE: Chest was scanned utilizing a multidetector helical scanner from the lung apex through the level of the adrenal glands after administration of IV contrast. Coronal and sagittal reformations were obtained. Routine protocol was performed. IV CONTRAST: 100mL Isovue 370 RADIATION DOSE: Total DLP: 475.1 mGy*cm. Dose modulation, iterative reconstruction, and/or weight based adjustment of the mA/kV was utilized to reduce the radiation dose to as low as reasonably achievable. COMPLICATIONS: None FINDINGS: LINES/ TUBES: NG tube terminates in the stomach. LUNGS AND AIRWAYS: The central airways are patent. There is bilateral lower lobe lobar atelectasis. 12 mm nodular opacity at the anterior right middle lobe (series 2 image 66) is new compared to 06/22/2018. PLEURA: Small bilateral pleural effusions. No pneumothorax. HEART AND MEDIASTINUM: Normal thyroid gland. No lymphadenopathy. Scattered atherosclerotic calcifications of coronary arteries and thoracic aorta. Heart size at the upper limits of normal. No pericardial effusion. UPPER ABDOMEN: Severe hepatic steatosis and hepatomegaly. Trace perihepatic ascites. No focal mass in partially visualized liver. No focal abnormality of the partially visualized spleen, gallbladder, pancreas, adrenals, or upper most kidneys. BONES: No acute osseous injury. Status post vertebral augmentation at T10 and T11. Degenerative changes of the visualized spine and mild diffuse osteopenia. SOFT TISSUES: Unremarkable. IMPRESSION: Bilateral lower lobe lobar atelectasis. 12 mm nodular opacity at the anterior right middle lobe is new compared to 06/22/2018 and may be infectious or inflammatory. Short-term follow-up CT in 3 months is recommended to assess for resolution. No lymphadenopathy. Severe hepatic steatosis and hepatomegaly. Small perihepatic ascites. Signed by: Peter Stanford MD on 01/09/2019 11:19 AM
[2019-01-09] MEDS: AZITHROMYCIN 500MG/NS 250 ML 250 ML IV SCH (12:27)
[2019-01-09] MEDS: CEFTRIAXONE SOD 2 GM/NS 100 ML 100 ML IV SCH (12:27)
[2019-01-09 15:08] LABS: BODY FLUID APPEARANCE SL.CLOUDY; BODY FLUID COLOR COLORLESS
[2019-01-09 15:12] LABS: BODY FLUID TYPE ABDOMINAL; RBC,BODY FLUID 245 cells/uL; WBC,BODY FLUID 712 cells/uL
[2019-01-09] MEDS: FAMOTIDINE 20 MG TAB PO SCH (17:22)
[2019-01-09 18:09] LABS: LYMPHOCYTES,BODY FLUID 4 %; MONO/MACROPHG,BODY FLUID 2 %; NEUTROPHILS,BODY FLUID 94 %
[2019-01-09] MEDS ORDERED: SODIUM CHLORIDE 0.9% 50ML 50 ML ONE (18:51)
[2019-01-09] MEDS ORDERED: IOPAMIDOL 370 MG/ML 200 ML INFUS..BTL INJ ONE (18:52)
--- NOTE | 2019-01-09 19:12 | NUR ---
Pt experiencing breakthrough pain. Report this to Bree Lindsey DELICATESSEN DEPARTMENT MANAGER for Dr. Odell. New orders received, (please refer to clerical order filler for further details.)
[2019-01-09] MEDS: MORPHINE SULFATE INJ 4 MG/ML INJ 1ML IV PRN ×2 (19:24→22:32)
[2019-01-09] MEDS ORDERED: LIDOCAINE HCL 4% 50 ML BTL TOP PRN (20:00)
[2019-01-09] MEDS ORDERED: FENTANYL 25 MCG/HR PATCH TOP SCH (20:00)
--- NOTE | 2019-01-09 20:00 | NUR ---
Consult called to Dr. Shira Ryder. New orders received, read back, and witnessed by Tiana Wade RN. Refer to sales order specialist for further details. Pts status and assessment discussed with Dr. Ryder. Referring office: James Lindsey RESIDENTIAL SUPPORT WORKER for Dr. Odell.
[2019-01-09] MEDS ORDERED: FENTANYL 25 MCG/HR PATCH ONE (20:25)
--- NOTE | 2019-01-09 20:45 | NUR ---
Report given to Saritha RN and pt transfered to [facility] 187.
--- NOTE | 2019-01-09 21:41 | NUR ---
PATIENT RECEIVED TO RM#[id number], HE'S ALERT AND ORIENTED. NON PRODUCTIVE COUGH NOTED, O2@2L/NC AND DENIES SHORTNESS OF BREATH. 4+ PITTING EDEMA TO THE FEET, GENERALIZED EDEMA TO THE LEFT FOREARM. RASHES WITH BLACK WOUNDS OBSERVED TO THE RIGHT HAND, LIDOCAINE SOLUTION APPLIED TOPICALLY ORDERED. PATIENT C/O SEVERE GENERALIZED PAIN, MEDICATED WITH NORCO ORDERED. SANCHEZ CATHETER AND ABDOMINAL DRAIN INTACT, HE'S ENCOURAGED TO REPOSITION FREQUENTLY IN BED. CALL LIGHT WITHIN EASY REACH, HIS BROTHER AT THE BEDSIDE.
--- NOTE | 2019-01-09 22:34 | NUR ---
ASSISTED WITH ADLS, PATIENT CONTINUE TO C/O GENERALIZED PAIN. MEDICATED WITH MORPHINE NEEDED, CALL LIGHT WITHIN EASY REACH.
[2019-01-10] VITALS (7 sets, daily range): BP systolic 103–119; BP diastolic 54–80
[2019-01-10] MEDS: ALBUTEROL/IPRATROPIUM 3 ML NEB NEB SCH ×4 (00:30→20:00)
[2019-01-10] MEDS: MORPHINE SULFATE INJ 4 MG/ML INJ 1ML IV PRN ×5 (02:46→22:56)
--- NOTE | 2019-01-10 02:47 | NUR ---
PATIENT SCREAMS AND C/O PAIN TO THE RIGHT HAND AND THE BACK, MEDICATED WITH MORPHINE ORDERED. NO RESPIRATORY DISTRESS OBSERVED, WILL REASSESS PER PROTOCOL.
[2019-01-10] MEDS ORDERED: FUROSEMIDE INJ 10 MG/ML 4 ML VIAL IV ONE (04:15)
[2019-01-10 04:40] LABS: BASOPHILS % 0.3 % (0.0-1.0); HEMOGLOBIN 9.9 g/dL (14.0-18.0); LYMPHOCYTES # (AUTO) 0.3 (1.0-3.2); LYMPHOCYTES % 4.3 % (18.0-39.1); MEAN CORPUSCULAR HEMOGLOBIN 27.6 pg (28-32); MEAN CORPUSCULAR VOLUME 83.6 fL (81-99); MONOCYTES # (AUTO) 0.6 (0.2-0.8); MONOCYTES % 7.8 % (4.4-11.3); NEUTROPHILS # (AUTO) 5.5 (2.1-6.9); NEUTROPHILS % 77.4 % (38.7-80.0); PLATELET COUNT 344 x10e3/uL (140-360); RED BLOOD COUNT 3.59 x10e6/uL (4.3-5.7); RED CELL DISTRIBUTION WIDTH 18.2 % (11.7-14.4)
[2019-01-10 04:58] LABS: ALANINE AMINOTRANSFERASE 29 IU/L (0-55); ALBUMIN 1.4 g/dL (3.5-5.0); ALBUMIN/GLOBULIN RATIO 0.5 (0.8-2.0); ALKALINE PHOSPHATASE 840 IU/L (40-150); ANION GAP 14.5 mmol/L (8-16); BLOOD UREA NITROGEN 42 mg/dL (7-26); BUN/CREATININE RATIO 37 (6-25); CALCIUM 7.7 mg/dL (8.4-10.2); CARBON DIOXIDE 18 mmol/L (22-29); CHLORIDE 101 mmol/L (98-107); CREATININE, SERUM 1.14 mg/dL (0.72-1.25); EST GLOMERULAR FILTRATION RATE > 60 ML/MIN (60-); GLUCOSE 108 mg/dL (74-118); POTASSIUM 4.5 mmol/L (3.5-5.1); SODIUM 129 mmol/L (136-145)
[2019-01-10] MEDS: TRIMETHOPRIM/SULFAMETHOXAZOLE 160-800 MG TAB PO SCH ×3 (05:36→22:55)
[2019-01-10 07:50] LABS: LYMPHOCYTES % (MANUAL) 8 % (19-48); MONOCYTES % (MANUAL) 8 % (3.4-9.0); NEUTROPHILS % (MANUAL) 84 % (40-74)
[2019-01-10 07:51] LABS: ANISOCYTOSIS SLIG; PLATELET ESTIMATE ADEQUATE; PLATELET MORPHOLOGY COMMENT NORMAL; POIKILOCYTOSIS SLIGHT; RBC MORPHOLOGY COMMENT NORMAL
[2019-01-10] MEDS: FAMOTIDINE 20 MG TAB PO SCH ×2 (08:15→17:15)
[2019-01-10] MEDS: MIDODRINE HCL 5 MG TABLET PO SCH ×3 (08:20→20:42)
[2019-01-10] MEDS: PANTOPRAZOLE SODIUM 40 MG SUSPDR.PKT PO SCH (08:20)
[2019-01-10] MEDS: PREGABALIN 75 MG CAP NG SCH ×2 (08:20→17:15)
[2019-01-10] MEDS: VALACYCLOVIR HCL 500 MG TAB PO SCH (08:20)
[2019-01-10] MEDS: HYDROCORTISONE 10 MG TAB PO SCH ×2 (08:20→17:15)
[2019-01-10] MEDS: FOLIC ACID 1 MG TAB PO SCH (08:20)
[2019-01-10] MEDS: DESCOVY PO SCH (08:40)
[2019-01-10] MEDS: COLLAGENASE 5 GM TUBE TOP SCH (08:40)
[2019-01-10] MEDS: CALAMINE LOTION 4 OZ BOTTLE TP SCH ×3 (08:41→20:42)
[2019-01-10] MEDS: BALSAM PERU/CASTOR OIL 5 GM OINT...G. TP SCH (08:41)
--- NOTE | 2019-01-10 10:16 | NUR ---
02 SATS ON ROOM AIR 90%; DOES NOT QUALIFY FOR HOME OXYGEN
[2019-01-10] MEDS: AZITHROMYCIN 500MG/NS 250 ML 250 ML IV SCH (12:30)
[2019-01-10] MEDS: CEFTRIAXONE SOD 2 GM/NS 100 ML 100 ML IV SCH (13:30)
[2019-01-10] MEDS ORDERED: POTASSIUM CHLORIDE 20 MEQ TAB CR PO ONE (14:00)
--- NOTE | 2019-01-10 14:29 | NUR ---
Rounds with Dr. King. Dr. King spoke with patient regarding plan of care and options available. Dr. King mentioned IV antibiotic therapy and pain management at LTAC. Call placed to Dr. Odell. Spoke with Niesha. valdemar Vaughn to order LTAC evaluation and transfer when accepted.
--- NOTE | 2019-01-10 14:32 | Progress Note ---
DATE: SUBJECTIVE: The patient feels better overall. He was transferred out of the Intensive Care Unit yesterday. PHYSICAL EXAMINATION: LUNGS: Auscultation of lungs reveals clear breath sounds bilaterally. CARDIAC: Reveals a regular rate and rhythm with normal S1, S2. There are no murmurs or rubs. ABDOMEN: Soft, nontender. There is ascites. EXTREMITIES: There is no leg edema or calf tenderness. IMPRESSION: 1. Serratia pneumonia with severe sepsis, present on admission. 2. Cirrhosis with ascites. 3. History of lymphoma. 4. History of immunodeficiency virus. 5. Shingles. 6. Anemia secondary to chronic blood loss. PLAN: 1. Discuss adjustment of antibiotics with Infectious Disease. 2. Place new peripheral line and remove femoral central line. 3. Continue physical therapy. 4. Pain control. 5. Continue anti-retroviral therapy. 6. Continue to use intraperitoneal drain to remove ascites as needed. Horacio Sherwood MD [facility] /[id number]
[2019-01-10] MEDS ORDERED: BACTRIM DS TAB1 EACH PO (15:22)
[2019-01-10] MEDS ORDERED: ZITHROMAX500 MG PO (15:22)
[2019-01-10] MEDS ORDERED: TYLENOL WITH C1 EACH PO (15:31)
[2019-01-10] MEDS: ONDANSETRON HCL INJ 2MG/ML 2ML 2 MG/ML VIAL IV PRN (15:44)
--- NOTE | 2019-01-10 17:56 | NUR ---
Right femoral line removed with tip intact. Pressure held for 5 minutes; pressure dressing applied, no bleeding or hematoma noted. Pt tolerated well.
[2019-01-10] MEDS: HYDROCODONE/APAP 10MG-325MG TAB PO PRN (20:42)
[2019-01-11] VITALS (7 sets, daily range): BP systolic 101–130; BP diastolic 66–77
[2019-01-11] MEDS: ALBUTEROL/IPRATROPIUM 3 ML NEB NEB SCH ×4 (01:00→18:42)
[2019-01-11] MEDS: MORPHINE SULFATE INJ 4 MG/ML INJ 1ML IV PRN ×4 (02:47→18:28)
[2019-01-11 05:27] LABS: BASOPHILS % 0.2 % (0.0-1.0); HEMATOCRIT 33.8 % (38.2-49.6); HEMOGLOBIN 10.6 g/dL (14.0-18.0); LYMPHOCYTES # (AUTO) 0.4 (1.0-3.2); LYMPHOCYTES % 6.2 % (18.0-39.1); MEAN CORPUSCULAR HEMOGLOBIN 27.3 pg (28-32); MEAN CORPUSCULAR HGB CONC 31.4 g/dL (31-35); MEAN CORPUSCULAR VOLUME 87.1 fL (81-99); MONOCYTES # (AUTO) 0.3 (0.2-0.8); MONOCYTES % 5.4 % (4.4-11.3); NEUTROPHILS # (AUTO) 4.8 (2.1-6.9); NEUTROPHILS % 79.8 % (38.7-80.0); PLATELET COUNT 251 x10e3/uL (140-360); RED BLOOD COUNT 3.88 x10e6/uL (4.3-5.7); RED CELL DISTRIBUTION WIDTH 18.5 % (11.7-14.4)
[2019-01-11 05:46] LABS: ANION GAP 11.3 mmol/L (8-16); BLOOD UREA NITROGEN 35 mg/dL (7-26); BUN/CREATININE RATIO 32 (6-25); CALCIUM 7.5 mg/dL (8.4-10.2); CARBON DIOXIDE 19 mmol/L (22-29); CHLORIDE 104 mmol/L (98-107); CREATININE, SERUM 1.11 mg/dL (0.72-1.25); EST GLOMERULAR FILTRATION RATE > 60 ML/MIN (60-); GLUCOSE 75 mg/dL (74-118); POTASSIUM 4.3 mmol/L (3.5-5.1); SODIUM 130 mmol/L (136-145)
[2019-01-11] MEDS: TRIMETHOPRIM/SULFAMETHOXAZOLE 160-800 MG TAB PO SCH ×3 (06:52→21:45)
[2019-01-11 06:55] LABS: LYMPHOCYTES % (MANUAL) 5 % (19-48); METAMYELOCYTES % (MANUAL) 2 % (0-0); MONOCYTES % (MANUAL) 5 % (3.4-9.0); NEUTROPHILS % (MANUAL) 88 % (40-74)
[2019-01-11 06:56] LABS: ANISOCYTOSIS SLIGHT; HYPERSEGMENTED NEUTROPHILS FEW; MICROCYTOSIS SLIGHT; PLATELET ESTIMATE ADEQUATE; PLATELET MORPHOLOGY COMMENT NORMAL; RBC MORPHOLOGY COMMENT ABNORMAL
[2019-01-11] MEDS: HYDROCODONE/APAP 10MG-325MG TAB PO PRN (07:17)
[2019-01-11] MEDS: FAMOTIDINE 20 MG TAB PO SCH ×2 (07:17→17:53)
[2019-01-11] MEDS: BALSAM PERU/CASTOR OIL 5 GM OINT...G. TP SCH (09:00)
[2019-01-11] MEDS ORDERED: POTASSIUM CHLORIDE 20 MEQ TAB CR PO ONE (09:00)
[2019-01-11] MEDS: COLLAGENASE 5 GM TUBE TOP SCH (09:00)
[2019-01-11] MEDS: CALAMINE LOTION 4 OZ BOTTLE TP SCH ×2 (09:00→15:00)
--- NOTE | 2019-01-11 09:00 | NUR ---
patient refusing wound care this am.
[2019-01-11] MEDS: HYDROCORTISONE 10 MG TAB PO SCH ×2 (09:17→17:53)
[2019-01-11] MEDS: VALACYCLOVIR HCL 500 MG TAB PO SCH (09:17)
[2019-01-11] MEDS: FOLIC ACID 1 MG TAB PO SCH (09:17)
[2019-01-11] MEDS: PREGABALIN 75 MG CAP NG SCH ×2 (09:17→17:53)
[2019-01-11] MEDS: MIDODRINE HCL 5 MG TABLET PO SCH ×3 (09:17→22:00)
[2019-01-11] MEDS: DESCOVY PO SCH (09:21)
--- NOTE | 2019-01-11 09:53 | NUR ---
Met with pt and discussed order for hospice. He agrees and signed choice letter for [facility] [phone]. He wants hospice to speak with his brother, Tapan Mar [phone]. His mother is in the room Pam Welch [phone]. Pt has hospital bed already, but does not have home oxygen. CM notified Irene Saldana [phone]. She will contact brother to get set hospice set up for pt to go home today. CM updated Julian Vasquez RN
[2019-01-11] MEDS: ONDANSETRON HCL INJ 2MG/ML 2ML 2 MG/ML VIAL IV PRN ×2 (11:02→18:28)
[2019-01-11] MEDS: CEFTRIAXONE SOD 2 GM/NS 100 ML 100 ML IV SCH (13:45)
--- NOTE | 2019-01-11 14:37 | Progress Note ---
DATE: Pulmonary Progress Note SUBJECTIVE: The patient reports some fatigue. He still has ascites. PHYSICAL EXAMINATION: VITAL SIGNS: The blood pressure is 114/66 and saturation is 92% on 3 L. HEENT: Shows no facial swelling or erythema. CARDIAC: Reveals regular rate and rhythm with normal S1 and S2. LUNGS: Auscultation of lungs reveals decreased breath sounds at the bases. There is no wheezing. ABDOMEN: Soft. There is ascites. There is a peritoneal catheter in place. EXTREMITIES: There is no leg edema or calf tenderness. IMPRESSION: 1. Aspiration pneumonia with severe sepsis, present on admission. 2. Acute respiratory failure. 3. Cirrhosis with ascites. 4. History of lymphoma. 5. Immunodeficiency virus. 6. Shingles. 7. Anemia secondary to chronic blood loss. PLAN: 1. The patient has opted for palliative care. 2. Arrangements have been made for hospice. 3. Continue pain control. 4. Continue antibiotics. Horacio Sherwood MD [facility] /[id number]
--- NOTE | 2019-01-11 15:28 | Progress Note ---
DATE: SUBJECTIVE: Mr. Mar is comfortable, but anxious. I had a long discussion with him today as well as yesterday. The patient is aware of his grim prognosis. He does have underlying history of AIDS, also possible lymphoma, also liver cirrhosis, hepatitis B. The patient is extremely ill. He did wish to go with hospice. Hospice was consulted. He is going with hospice. PHYSICAL EXAMINATION: GENERAL: Unchanged today. Alert, comfortable. VITAL SIGNS: Stable. HEENT: Pale, not icteric. NECK: Supple. CHEST: Few crackles. COR: S1 and S2. No S3, S4. No murmurs. ABDOMEN: Soft, distended. EXTREMITIES: No edema. SKIN: No rash. IMPRESSION AND PLAN: 1. Full-blown AIDS. 2. Pneumonia present on admission. 3. Sepsis present on admission. 4. Liver cirrhosis. Agree with hospice. Can go home with comfort care. MD OTONIEL Sanches/REUBEN /[id number]
--- NOTE | 2019-01-11 17:15 | NUR ---
HOSPICE SET UP AND AMBULANCE CALLED. WILL ARRIVE FOR PRODUCER AT 7PM. FAMILY AT BS.
--- NOTE | 2019-01-11 18:09 | Discharge Summary ---
ADMISSION DIAGNOSES: 1. Septic shock due to pneumonia. 2. Bilateral multifocal pneumonia in an human immunodeficiency virus patient. 3. Human immunodeficiency virus/acquired immune deficiency syndrome. 4. Chronic shingles on the right arm. 5. Acute respiratory failure. 6. Hyponatremia. 7. Microcytic anemia of chronic disease. 8. Metabolic acidosis. 9. Severe protein calorie malnutrition. 10. 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 DISCHARGE DIAGNOSES: 1. Septic shock due to pneumonia. 2. Bilateral multifocal pneumonia in an human immunodeficiency virus patient. 3. Human immunodeficiency virus/acquired immune deficiency syndrome. 4. Chronic shingles on the right arm. 5. Acute respiratory failure. 6. Hyponatremia. 7. Microcytic anemia of chronic disease. 8. Metabolic acidosis. 9. Severe protein calorie malnutrition. 10. 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 11. CD4 count of 24. 12. Sputum culture of Serratia pneumonia. HISTORY: The patient has a history of AIDS, chronic shingles and possible Dashawn's. SURGICAL HISTORY: Unknown. FAMILY HISTORY: Noncontributory. SOCIAL HISTORY: Noncontributory. HOSPITAL COURSE: A 48-year-old male with AIDS, presents with 2-3 days of worsening shortness of breath. He has been on Levaquin, also on Bactrim and Valtrex for shingles as well as cortisone. On admission, IV fluids were given. Vancomycin and Zosyn were started as well as Bactrim per ID recommendation. Solu-Medrol, acyclovir and patient was intubated. Chest x-ray on admission showed patchy bilateral airspace disease with primary differential considerations of multifocal pneumonia or pulmonary edema. The patient had a right IJ placed in ICU. Sputum cultures came back positive for Serratia. ID was consulted, who managed antibiotics and at time of discharge, recommended acyclovir 1200 mg weekly permanently and Bactrim 2 tabs q.8 x21 daily. After speaking with the patient and Infectious Disease, the patient's CD4 count came back at 24 and Infectious Disease explained to the patient that he is now in AIDS and his immune system is practically nonexistent. The patient will discharge home with hospice. He has family and providers at home. The patient understands discharge instructions and agrees to plan. Vital signs stable, patient afebrile. Dictated by Bree Lindsey NP MD GURWINDER Pillai/REUBEN /[id number]
--- NOTE | 2019-01-11 19:00 | NUR ---
Patient visited in room during nursing rounds. Patient alert and oriented x3. Extremely weak on all extremities and is on strict bed rest. DNR care status. On Contact isolation for shingles to right arm and right hand. Mother at bedside. Pt and mother aware of plan to discharge home with hospice care tonight. Awaiting on delivery of hospital bed and oxygen supplies to home [facility] Drainage bag (collecting clear light yellow fluid) from ascites on RLQ abdomen. Pereira in place for urinary retention. Call kennedy within reach.
--- NOTE | 2019-01-11 19:38 | NUR ---
Called and spoke with Vinod Ken (PLANT CONTROLLER for Dr. Odell) and informed of patient's HR being on the 150's and patient appear to be anxious and complaining of shortness of breath. RT (Kelley) aware and placed pt on 11L Hi-flow NC. Vinod ordered Xanax 0.5mg PO x1 dose STAT.
[2019-01-11] MEDS ORDERED: ALPRAZOLAM 0.5 MG TAB PO NR (19:45)
--- NOTE | 2019-01-11 21:00 | NUR ---
HR went down to 130's and pt asleep and appear comfortable at this time.
--- NOTE | 2019-01-11 22:20 | NUR ---
Patient escorted by EMT (Christine) via stretcher. Pt in stable condition. V/S stable BP = 104/71,, HR = 131, RR = 16, Temp = 99.3 F, O2 sat 97% on Hi-flow NC 12L. Patient was also accompanied by mother (aPm Mar). Latest information from Tapan (patient's brother) is that hospital bed and oxygen supplies all set up at home at this time. Patient left unit in stable condition.
[2019-01-12] MEDS ORDERED: PANTOPRAZOLE SOD 40 MG TABEC PO SCH (07:30)
== END 2019-01-11 22:20 | disposition hospice, home (50) | DRG 974 ==
LOC: ER 06:39 → ERHOLD 07:47 → ICU 11:11 → IMCU 01-09 21:00
PROVIDERS: ADMIT Internal Medicine; ATTEND Internal Medicine
PROC: 3E0G76Z Introduction of Nutritional Substance into Upper GI, Via Natural or Artificial Opening (ICD-10-PCS; principal; 2019-01-07)
PROC: 0D9670Z Drainage of Stomach with Drainage Device, Via Natural or Artificial Opening (ICD-10-PCS; principal; 2019-01-07)
PROC: 3E043XZ Introduction of Vasopressor into Central Vein, Percutaneous Approach (ICD-10-PCS; principal; 2019-01-07)
PROC: 0BH18EZ Insertion of Endotracheal Airway into Trachea, Via Natural or Artificial Opening Endoscopic (ICD-10-PCS; principal; 2019-01-07)
PROC: 05H433Z Insertion of Infusion Device into Left Innominate Vein, Percutaneous Approach (ICD-10-PCS; principal; 2019-01-07)
PROC: 5A1935Z Respiratory Ventilation, Less than 24 Consecutive Hours (ICD-10-PCS; principal; 2019-01-07)
PROC: 30233N1 Transfusion of Nonautologous Red Blood Cells into Peripheral Vein, Percutaneous Approach (ICD-10-PCS; 2019-01-08)
DX: B20 Human immunodeficiency virus [HIV] disease (principal); A41.9 Sepsis, unspecified organism; R65.21 Severe sepsis with septic shock; E43 Unspecified severe protein-calorie malnutrition; J15.6 Pneumonia due to other Gram-negative bacteria; J96.00 Acute respiratory failure, unspecified whether with hypoxia or hypercapnia; E87.1 Hypo-osmolality and hyponatremia; E87.2 Acidosis; E27.1 Primary adrenocortical insufficiency; B19.10 Unspecified viral hepatitis B without hepatic coma; R18.8 Other ascites; C85.90 Non-Hodgkin lymphoma, unspecified, unspecified site; B02.9 Zoster without complications; Z68.21 Body mass index [BMI] 21.0-21.9, adult; L89.152 Pressure ulcer of sacral region, stage 2; K74.60 Unspecified cirrhosis of liver; D63.8 Anemia in other chronic diseases classified elsewhere; D50.0 Iron deficiency anemia secondary to blood loss (chronic); R53.81 Other malaise; Z51.5 Encounter for palliative care; Z66 Do not resuscitate; Z93.1 Gastrostomy status
CPT/HCPCS: 36415; 36555; 36600; 51700; 71045; 71260; 80048; 80053; 80076; 82040; 82533; 82550; 82553; 82805; 83540; 83605; 83615; 83880; 84449; 84466; 84484; 85025; 85610; 85730; 86361; 86850; 86900; 86920; 87015; 87040; 87070; 87086; 87186; 87205; 89051; 93005; 93306; 94002; 94003; 94640; 96366; 96376; 97139; 99285; J0330; J0456; J0610; J0696; J1720; J1940; J2001; J2250; J2270; J2405; J2543; J2930; J3370; J7030; J7050; P9016; Q9967